=== PATIENT | female | born 1960 | race Caucasian/White ===

== ENCOUNTER 2018-05-21 17:59 | Inpatient (IN) ==
[2018-05-21] MEDS ORDERED: 0.9 % Sodium Chloride 1,000 ML IVC ONE (19:38)
--- NOTE | 2018-05-21 19:54 | Emergency Department Note ---
Disposition Clinical Impression: Lactic acidosis Osteomyelitis Qualifiers: Osteomyelitis type: unspecified type Osteomyelitis location: tibia Laterality: left Qualified Code(s): M86.9 - Osteomyelitis, unspecified Disposition: Admitted As Inpatient Condition: Fair Referrals: Shoshana Davis MD [Primary Care Provider] - Forms: ED Satisfaction Letter Time of Disposition: 21:20 Wound/Laceration HPI - General Chief Complaint: ED Wound/Laceration Stated Complaint: left stub infection Time Seen by Provider: 05/21/18 19:27 Source: patient, family Mode of arrival: ambulatory Limitations: no limitations Nursing Notes Reviewed: Yes Vital Signs Reviewed: Yes - History of Present Illness HPI Narrative: 57-year-old female history of left below knee amputation presents with concern for stump infection. She had the procedure performed 2 years ago and has had multiple revisions. She has been recently following with wound care given ulceration to her stump. She states her bones is poking through the skin. She is noticed some drainage from the wound site of the past several weeks. Last evaluated by wound care physician Dr. Veras this past month. She states they plan to perform another revision. The amputation was performed over 2 years ago in [place] at [facility] due to staff infection. She reports a low- grade temperature of 99. Denies nausea vomiting. Denies any new injury or trauma to the area. She has been using her prosthetic leg and states recently increasing the padding. She is concern for a larger infection. Recently placed on Clindamycin 3 weeks ago and finished 10 days ago. Patient has a history of diabetes and states are sugars have been well-controlled around 120s. - Related Data Allergies Allergy/AdvReac Type Severity Reaction Status Date / Time acetaminophen Allergy Nausea Verified 05/21/18 18:05 [From Darvocet-N 100] escitalopram [From Lexapro] Allergy Confusion Verified 05/21/18 18:05 latex Allergy See Verified 05/21/18 18:05 Comments levofloxacin [From Levaquin] Allergy Nausea Verified 05/21/18 18:05 [place] Allergy Confusion Verified 05/21/18 18:05 propoxyphene Allergy Nausea Verified 05/21/18 18:05 [From Darvocet-N 100] sumatriptan [From Imitrex] Allergy See Verified 05/21/18 18:05 Comments hydrocodone AdvReac See Verified 05/21/18 18:05 Comments All systems ED: reviewed and negative except as stated. Review of Systems: As Per HPI Constitutional: Denies: fever, chills ENT ED: Denies: congestion Cardiovascular: Denies: chest pain Respiratory: Denies: dyspnea Gastrointestinal: Denies: nausea, vomiting Musculoskeletal: Denies: back pain, neck pain Integumentary: Reports: lesions Neurological: Denies: headache, weakness, numbness Past Medical History - Past Medical History Attestation: Yes The following information was validated with the patient. Source: patient Medical history: Reports: diabetes, fibromyalgia, hyperlipidemia, hypertension, myocardial infarction Psychiatric history: Reports: anxiety, depression - Social History Smoking Status: Never smoker Alcohol use: Reports: none Drug use: Reports: none Physical Exam - General Limitations: no limitations General appearance: alert, in no apparent distress - Chest Chest inspection: Present: normal inspection, symmetric chest wall rise - Respiratory Respiratory exam: Present: normal lung sounds bilaterally - Cardiovascular Cardiovascular exam: Present: regular rate, normal rhythm, normal heart sounds - Abdominal Exam Abdominal exam: Present: soft, Non-Tender, normal bowel sounds. Absent: tenderness, distention, guarding, rebound, rigidity - Extremities Exam Extremities exam: Present: other (Left knee below amputation) - Psychiatric Psychiatric exam: Present: normal affect, normal mood - Skin Skin exam: Present: other (There is a slight 3 to 5 mm pustule ulceration to the left stump with tenderness, there is no surrounding erythema or warmth, no fluctuance or crepitus) Course Course Narrative: Patient presents with concern of infection to her left below knee amputation. Low-grade temps at home. Reports of drainage around the site. There is no evidence of erythema swelling or warm to the touch to suggest infection at this time however she reports multiple complications. At this time will obtain x-ray imaging as well as blood work including ESR and CRP. - Reevaluation(s) Reevaluation #1: X-ray with findings concerning for osteomyelitis. ESR and CRP are elevated. No leukocytosis. Lactic acid is elevated. Discussed with the pharmacists, will empirically treated with vancomycin and cefepime. Patient is agreeable to this plan. There is no obvious sight of fluctuance requiring drainage at this time. Impression is osteomyelitis of the left leg. Time: 21:19 - Consultations Consultation #1: Spoke with on-call hospitalist irlanda Middleton to admit for left leg osteomyelitis. No further orders at this time Time: 21:19 Vital Signs Temperature 97.7 F 05/21/18 18:02 Pulse Rate 103 05/21/18 18:02 Respiratory Rate 18 05/21/18 18:02 Blood Pressure 150/88 05/21/18 18:02 O2 Sat by Pulse Oximetry 99 05/21/18 18:02 Temperature 97.7 F 05/21/18 18:02 Pulse Rate 103 05/21/18 18:02 Respiratory Rate 18 05/21/18 18:02 Blood Pressure 150/88 05/21/18 18:02 O2 Sat by Pulse Oximetry 99 05/21/18 18:02 Oxygen Delivery Oxygen Delivery Room Air Wound/Laceration - MDM Narrative Medical decision making narrative: Patient was discussed with my attending physician who agrees with ED management and final disposition. They independently evaluated the patient. Please refer to their attestation to this encounter for additional information. This note was generated by [email or web address] voice recognition software and as a result grammatical or spelling errors may occur using this program. - Medical Records Medical records reviewed: Yes I reviewed the patient's medical records. - Lab Data Lab results reviewed: Yes I reviewed the patient's lab results. Result diagrams: 05/21/18 19:49 05/21/18 19:49 Lab Results 05/21/18 05/21/18 05/21/18 Range/Units 19:49 19:49 19:49 WBC 9.9 (4.3-11.1) K/mcL RBC 5.02 H (3.82-4.97) M/mcL Hgb 13.2 (11.5-15.4) g/dL Hct 39.8 (35.3-44.9) % MCV 79.3 L (83.0-100.0) fL MCH 26.3 L (28.0-33.3) pg MCHC 33.2 (31.6-35.5) g/dL RDW 15.0 H (11.5-14.5) % Plt Count 295 (140-400) K/mcL MPV 9.6 (9.4-12.4) fL Immature Gran % 0.3 (0-4) % Seg Neutrophils % 71.7 % Lymphocytes % 22.5 % Monocytes % 5.0 % Eosinophils % 0.2 % Basophils % 0.3 % Neutrophils # 7.1 (1.6-8.9) K/mcL Lymphocytes # 2.2 (0.6-4.6) K/mcL Monocytes # 0.5 (0.0-1.3) K/mcL Eosinophils # 0.0 (0.0-0.6) K/mcL Basophils # 0.0 (0.0-0.2) K/mcL ESR 62 H (0-15) mm/hr Sodium 138 (136-145) mEq/L Potassium 3.2 L (3.5-5.1) mEq/L Chloride 103 (98-107) mEq/L Carbon Dioxide 24 (23-29) mEq/L BUN 10 (6-20) mg/dL Creatinine 0.67 (0.60-1.20) mg/dL Est GFR ( Amer) > 60 (> 60) Est GFR (Non-Af Amer) > 60 (> 60) BUN/Creatinine Ratio 15 (6-26) Glucose 189 H (70-105) mg/dL Calculated Osmolality 290 (280-300) Lactic Acid (0.5-2.2) mmol/L Calcium 10.0 (8.6-10.3) mg/dL C-Reactive Protein 16 H (Less than 10) mg/L 05/21/18 Range/Units 19:49 WBC (4.3-11.1) K/mcL RBC (3.82-4.97) M/mcL Hgb (11.5-15.4) g/dL Hct (35.3-44.9) % MCV (83.0-100.0) fL MCH (28.0-33.3) pg MCHC (31.6-35.5) g/dL RDW (11.5-14.5) % Plt Count (140-400) K/mcL MPV (9.4-12.4) fL Immature Gran % (0-4) % Seg Neutrophils % % Lymphocytes % % Monocytes % % Eosinophils % % Basophils % % Neutrophils # (1.6-8.9) K/mcL Lymphocytes # (0.6-4.6) K/mcL Monocytes # (0.0-1.3) K/mcL Eosinophils # (0.0-0.6) K/mcL Basophils # (0.0-0.2) K/mcL ESR (0-15) mm/hr Sodium (136-145) mEq/L Potassium (3.5-5.1) mEq/L Chloride (98-107) mEq/L Carbon Dioxide (23-29) mEq/L BUN (6-20) mg/dL Creatinine (0.60-1.20) mg/dL Est GFR ( Amer) (> 60) Est GFR (Non-Af Amer) (> 60) BUN/Creatinine Ratio (6-26) Glucose (70-105) mg/dL Calculated Osmolality (280-300) Lactic Acid 2.9 H (0.5-2.2) mmol/L Calcium (8.6-10.3) mg/dL C-Reactive Protein (Less than 10) mg/L - Radiology Data Radiology results reviewed: Yes I reviewed the patient's radiology results. Tibia/Fibula X-Ray 05/21/18 19:37 IMPRESSION: Findings highly suspicious for osteomyelitis involving the stump. There is suggestion of a soft tissues track extending from the lateral skin. D/ / Shahzad Quan MD / Shahzad Quan MD Interpreting Provider: Shahzad Quan MD
[2018-05-21 20:17] LABS: Basophils % 0.3 %; Eosinophils % 0.2 %; Hematocrit 39.8 % (35.3-44.9); Hemoglobin 13.2 g/dL (11.5-15.4); Immature Granulocytes % 0.3 % (0-4); Lymphocytes # 2.2 K/mcL (0.6-4.6); Lymphocytes % 22.5 %; Mean Corpuscular HGB Conc 33.2 g/dL (31.6-35.5); Mean Corpuscular Hemoglobin 26.3 pg (28.0-33.3); Mean Corpuscular Volume 79.3 fL (83.0-100.0); Mean Platelet Volume 9.6 fL (9.4-12.4); Monocytes # 0.5 K/mcL (0.0-1.3); Neutrophils # 7.1 K/mcL (1.6-8.9); Platelet Count 295 K/mcL (140-400); Red Blood Count 5.02 M/mcL (3.82-4.97); Segmented Neutrophils % 71.7 %
[2018-05-21 20:39] LABS: BUN/Creatinine Ratio 15 (6-26); Blood Urea Nitrogen 10 mg/dL (6-20); C-Reactive Protein 16 mg/L (Less than 10); Carbon Dioxide 24 mEq/L (23-29); Chloride 103 mEq/L (98-107); Glucose 189 mg/dL (70-105); Osmolality,Calculated 290 (280-300); Potassium 3.2 mEq/L (3.5-5.1); Sodium 138 mEq/L (136-145); eGFR For Non-African Americans > 60 (> 60)
[2018-05-21] MEDS ORDERED: *HR* FentaNYL (PF) 100 MCG/2 ML VIAL IVP ONE (20:42)
--- NOTE | 2018-05-21 21:12 | Emergency Department Note ---
Disposition Clinical Impression: Osteomyelitis Disposition: Admitted As Inpatient Condition: Fair Referrals: Shoshana Davis MD [Primary Care Provider] - Forms: ED Satisfaction Letter General Adult HPI - General Chief complaint: ED Wound/Laceration Stated complaint: left stub infection Time Seen by Provider: 05/21/18 19:27 Source: patient, family Mode of arrival: ambulatory Limitations: no limitations - History of Present Illness Pain Scale: 10 - Related Data Allergies Allergy/AdvReac Type Severity Reaction Status Date / Time acetaminophen Allergy Nausea Verified 05/21/18 18:05 [From Darvocet-N 100] escitalopram [From Lexapro] Allergy Confusion Verified 05/21/18 18:05 latex Allergy See Verified 05/21/18 18:05 Comments levofloxacin [From Levaquin] Allergy Nausea Verified 05/21/18 18:05 [place] Allergy Confusion Verified 05/21/18 18:05 propoxyphene Allergy Nausea Verified 05/21/18 18:05 [From Darvocet-N 100] sumatriptan [From Imitrex] Allergy See Verified 05/21/18 18:05 Comments hydrocodone AdvReac See Verified 05/21/18 18:05 Comments Constitutional: Denies: fever, chills ENT ED: Denies: congestion Cardiovascular: Denies: chest pain Respiratory: Denies: dyspnea Gastrointestinal: Denies: nausea, vomiting Musculoskeletal: Denies: back pain, neck pain Integumentary: Reports: lesions Neurological: Denies: headache, weakness, numbness Past Medical History - Past Medical History Medical history: Reports: diabetes, fibromyalgia, hyperlipidemia, hypertension, myocardial infarction Psychiatric history: Reports: anxiety, depression - Social History Smoking Status: Never smoker Alcohol use: Reports: none Drug use: Reports: none Physical Exam - General Limitations: no limitations General appearance: alert, in no apparent distress Course Vital Signs Temperature 97.7 F 05/21/18 18:02 Pulse Rate 103 05/21/18 18:02 Respiratory Rate 18 05/21/18 18:02 Blood Pressure 150/88 05/21/18 18:02 O2 Sat by Pulse Oximetry 99 05/21/18 18:02 Temperature 97.7 F 05/21/18 18:02 Pulse Rate 103 05/21/18 18:02 Respiratory Rate 18 05/21/18 18:02 Blood Pressure 150/88 05/21/18 18:02 O2 Sat by Pulse Oximetry 99 05/21/18 18:02 Oxygen Delivery Oxygen Delivery Room Air Medical Decision Making - Lab Data Result diagrams: 05/21/18 19:49 05/21/18 19:49 Lab Results 05/21/18 05/21/18 05/21/18 Range/Units 19:49 19:49 19:49 WBC 9.9 (4.3-11.1) K/mcL RBC 5.02 H (3.82-4.97) M/mcL Hgb 13.2 (11.5-15.4) g/dL Hct 39.8 (35.3-44.9) % MCV 79.3 L (83.0-100.0) fL MCH 26.3 L (28.0-33.3) pg MCHC 33.2 (31.6-35.5) g/dL RDW 15.0 H (11.5-14.5) % Plt Count 295 (140-400) K/mcL MPV 9.6 (9.4-12.4) fL Immature Gran % 0.3 (0-4) % Seg Neutrophils % 71.7 % Lymphocytes % 22.5 % Monocytes % 5.0 % Eosinophils % 0.2 % Basophils % 0.3 % Neutrophils # 7.1 (1.6-8.9) K/mcL Lymphocytes # 2.2 (0.6-4.6) K/mcL Monocytes # 0.5 (0.0-1.3) K/mcL Eosinophils # 0.0 (0.0-0.6) K/mcL Basophils # 0.0 (0.0-0.2) K/mcL ESR 62 H (0-15) mm/hr Sodium 138 (136-145) mEq/L Potassium 3.2 L (3.5-5.1) mEq/L Chloride 103 (98-107) mEq/L Carbon Dioxide 24 (23-29) mEq/L BUN 10 (6-20) mg/dL Creatinine 0.67 (0.60-1.20) mg/dL Est GFR ( Amer) > 60 (> 60) Est GFR (Non-Af Amer) > 60 (> 60) BUN/Creatinine Ratio 15 (6-26) Glucose 189 H (70-105) mg/dL Calculated Osmolality 290 (280-300) Lactic Acid (0.5-2.2) mmol/L Calcium 10.0 (8.6-10.3) mg/dL C-Reactive Protein 16 H (Less than 10) mg/L 05/21/18 Range/Units 19:49 WBC (4.3-11.1) K/mcL RBC (3.82-4.97) M/mcL Hgb (11.5-15.4) g/dL Hct (35.3-44.9) % MCV (83.0-100.0) fL MCH (28.0-33.3) pg MCHC (31.6-35.5) g/dL RDW (11.5-14.5) % Plt Count (140-400) K/mcL MPV (9.4-12.4) fL Immature Gran % (0-4) % Seg Neutrophils % % Lymphocytes % % Monocytes % % Eosinophils % % Basophils % % Neutrophils # (1.6-8.9) K/mcL Lymphocytes # (0.6-4.6) K/mcL Monocytes # (0.0-1.3) K/mcL Eosinophils # (0.0-0.6) K/mcL Basophils # (0.0-0.2) K/mcL ESR (0-15) mm/hr Sodium (136-145) mEq/L Potassium (3.5-5.1) mEq/L Chloride (98-107) mEq/L Carbon Dioxide (23-29) mEq/L BUN (6-20) mg/dL Creatinine (0.60-1.20) mg/dL Est GFR ( Amer) (> 60) Est GFR (Non-Af Amer) (> 60) BUN/Creatinine Ratio (6-26) Glucose (70-105) mg/dL Calculated Osmolality (280-300) Lactic Acid 2.9 H (0.5-2.2) mmol/L Calcium (8.6-10.3) mg/dL C-Reactive Protein (Less than 10) mg/L Attestation Statement - Attestation Attestation: I have seen this patient with the resident physician, I have personally evaluated this patient. I had reviewed the chart and document dictation by the resident physician and aM in agreement with the information documented by the resident physician. Please see documentation by the resident physician for complete chart including past medical history, family medical history, review of systems, current history and physical and laboratory and imaging studies. I was present for all procedures, provided direct supervision for all pro cedures, was present for the entirety of all procedures and provided direct guidance during the procedures. Please see documentation by the resident physician for any procedures performed. Patient presented emergency department with chief complaint of progressively increasing discomfort and drainage from her prosthetic site, she years ago had a below the knee amputation worse prosthesis, and there was thought that she was going to need a revision, but she has had worsening pain and drainage, she has completed antibiotics but he continues to get worse. Physical exam she was alert and oriented 3 nontoxic in appearance, mildly tachycardic but afebrile in no acute distress, the [id number] amputation site, flap appears healthy, there is just a small area of pinpoint skin thi ckening with some very slight induration at the distal aspect, no purulence able to be expressed, no palpable fluctuance, no redness and warmth. Basic laboratory studies were within acceptable limits apart from an elevated sedimentation rate of 62 and an elevated CRP of 16 x-ray findings as interpreted by radiology were concerning for osteomyelitis of the remnant. Patient had blood culture sent, she was started on cefepime and vancomycin. She was admitted to the hospital for further evaluation and management.
[2018-05-21] MEDS ORDERED: Cefepime HCl 2,000 MG in Water for inj. (sterile) 20 ML 20 ML IVP ONE (21:15)
--- NOTE | 2018-05-21 21:19 | Internal Med History&Physical ---
<Ron Chi Aditya - Last Filed: 05/23/18 09:28> Date of Encounter: 05/23/18 Time of Encounter: 23:00 Internal Medicine - H&P: HPI Chief complaint: Wound infection History of present illness: Ms. Kirby is a 57 year old female with a past medical history of diabetes, fibromyalgia, hyperlipidemia, hypertension and [place] who presented to the ED with concerns for infection of his left below knee stump. Patient had left below knee amputation performed approximately 2 years ago with multiple revisions. Patient is currently being followed by wound care for ulceration of her stump. Patient reports that the bone is protruding through the skin and has noticed a drainage from the wound site over the past several weeks. Patient is currently followed by Dr. Veras who has been managing her wound. Patient reports that there was a plan for another revision but that has not moved forward to Patient denies any fever or chills. Currently uses a prosthetic leg which she has increased the padding of. On arrival patient was afebrile, hemodynamically stable. Initial laboratory workup showed a normal white blood cell count of 9.9 compared to 5.5 one month ago. Patient does have a lactic acid of 2.9. The ED patient received 1 L fluid bolus and was started on broad spectrum antibiotic coverage with Vanc/Zosyn. Blood cultures were obtained. X-ray imaging of the leg highly suspicious for osteomyelitis involving the stump. Past Med Surg Social Fam HX - Past Medical History Medical history: diabetes, fibromyalgia, hyperlipidemia, hypertension, myocardial infarction Psychiatric history: anxiety, depression - Past Surgical History Additional surgical history: Left BKA - Social History Smoking Status: Never smoker Alcohol use: none Drug use: none - Family History Father Hx Family Cardiac Disorders: Yes Mother Hx Family Cancer: Yes (ovarian, breast) Sister Hx Family Cardiac Disorders: Yes Internal Medicine - H&P: Meds Albuterol Inhaler 2 puff IH PRN PRN MDD Q4HR 05/22/18 [History] Albuterol Neb 0.083 aerosol IH PRN PRN MDD qid 05/22/18 [History] Allopurinol 100 mg PO BID 05/22/18 [History] Atorvastatin 80 mg PO DAILY 05/22/18 [History] Carvedilol 25 mg PO BID 05/22/18 [History] Flonase 2 spray NS DAILY 05/22/18 [History] Imitrex 100 mg PO PRN PRN 05/22/18 [History] Insulin Glargine,Hum.rec.anlog [Shaunaaglomayra Zhang U-100] 30 units SQ DAILY 05/22/18 [History] Lisinopril-HCTZ 20-12.5 See Protocol PO DAILY 05/22/18 [History] Meloxicam 7.5 mg PO BID 05/22/18 [History] Pantoprazole 40 mg PO DAILY 05/22/18 [History] Paxil Cr 37.5 mg PO DAILY 05/22/18 [History] Premarin 0.3 mg PO DAILY 05/22/18 [History] RX: Loratadine [Allergy Relief] 10 mg PO DAILY 05/22/18 [History] Ranitidine HCl 150 mg PO BID 05/22/18 [History] Singulair 10 mg PO DAILY 05/22/18 [History] Ziprasidone 160 mg PO HS 05/22/18 [History] rOPINIRole 5 mg PO DAILY 05/22/18 [History] Allergy/AdvReac Type Severity Reaction Status Date / Time acetaminophen Allergy Nausea Verified 05/21/18 18:05 [From Darvocet-N 100] escitalopram [From Lexapro] Allergy Confusion Verified 05/21/18 18:05 latex Allergy See Verified 05/21/18 18:05 Comments levofloxacin [From Levaquin] Allergy Nausea Verified 05/21/18 18:05 [place] Allergy Confusion Verified 05/21/18 18:05 propoxyphene Allergy Nausea Verified 05/21/18 18:05 [From Darvocet-N 100] sumatriptan [From Imitrex] Allergy See Verified 05/21/18 18:05 Comments hydrocodone AdvReac See Verified 05/21/18 18:05 Comments All Systems PM: A 10-system review of systems was performed and is negative for pertinent findings except as documented above in the HPI. - Constitutional Constitutional: no chills, no fever(s), no night sweats - EENT Eyes: no change in vision, no discharge, no pain, no photophobia Ears: no ear discharge, no ear pain, no tinnitus Nose, mouth and throat: no dysphagia, no nasal discharge, no neck pain, no sore throat - Cardiovascular Cardiovascular ROS IM: no chest pain, no diaphoresis, no dyspnea, no lightheadedness, no palpitations, no syncope - Respiratory Respiratory: no cough, no dyspnea, no wheezing, no excessive phlegm production - Gastrointestinal Gastrointestinal: no abdominal pain, no diarrhea, no hematemesis, no hematochezia, no melena, no nausea, no vomiting - Genitourinary Genitourinary: no change in urinary stream, no dysuria, no flank pain, no hematuria - Musculoskeletal Musculoskeletal ROS IM: no numbness, no tingling - Integumentary Integumentary IM: no rash, no unusual bruising - Neurological Neurological ROS: no confusion, no convulsions, no focal weakness, no numbness, no tingling, no tremor(s) - Hematologic/Lymphatic Hematologic/Lymphatic: no easy bruising - Constitutional Vitals: Temp Pulse Resp BP Pulse Ox 97.7 F 103 18 150/88 99 05/21/18 18:02 05/21/18 18:02 05/21/18 18:02 05/21/18 18:02 05/21/18 18:02 Exam: General: Alert and oriented Skin:Normal color, no rash, no lesions. HEENT:EOM, pupils equal, round and reactive. Cardiovascular:Normal S1 & S2, no rubs, murmurs or gallops. No JVD. Pulse regular. Lungs:Normal breath sounds, no wheezes or crackles. Abdomen:Soft, non-tender, no rigidity. Extremities:No deformity, no edema or tenderness, no joint swelling or clubbing. Neurological:Normal cognition and motor skills. Pulses:Carotid and radial pulses normal +2. Rest of the physical exam is non contributory Internal Med - H&P Results - Labs CBC & Chem 7: 05/23/18 02:23 05/23/18 02:23 Labs: Short CBC 05/21/18 Range/Units 19:49 WBC 9.9 (4.3-11.1) K/mcL Hgb 13.2 (11.5-15.4) g/dL Hct 39.8 (35.3-44.9) % Plt Count 295 (140-400) K/mcL Neutrophils # 7.1 (1.6-8.9) K/mcL BMP 05/21/18 19:49 Sodium 138 Potassium 3.2 L Chloride 103 Carbon Dioxide 24 BUN 10 Creatinine 0.67 Glucose 189 H Calcium 10.0 - Impressions ITS Impressions Tibia/Fibula X-Ray 05/21/18 19:37 IMPRESSION: Findings highly suspicious for osteomyelitis involving the stump. There is suggestion of a soft tissues track extending from the lateral skin. D/ / Shahzad Quan MD / Shahzad Quan MD Interpreting Provider: Shahzad Quan MD - Assessment and Plan (1) Osteomyelitis Current Visit: Yes Status: Acute Assessment and plan: Left below the knee amputation with multiple revisions with reported mild purul ent drainage from wound site. X-ray of the stump concerning for osteoarthritis in the setting of elevated ESR and CRP. Patient nonseptic in appearance. On examination flap appears healthy, no warmth or erythema, no purulence able to be expressed. Lab workup relatively unremarkable. Patient started on vancomycin and cefepime. Blood cultures obtained. Case was discussed in with Dr. Byers with orthopedics who will see the patient in the afternoon. Patient can have diet in the meantime. Qualifiers: Osteomyelitis type: unspecified type Laterality: left Qualified Code(s): M86.9 - Osteomyelitis, unspecified (2) Type 2 diabetes mellitus Current Visit: Yes Status: Acute Assessment and plan: Diabetic diet. Blood glucose checks. Sliding scale insulin. Qualifiers: Qualified Code(s): E11.9 - Type 2 diabetes mellitus without complications (3) Hypertension Current Visit: Yes Status: Acute Assessment and plan: Blood pressure stable. Continue with home medications Qualifiers: Hypertension type: essential hypertension Qualified Code(s): I10 - Essential (primary) hypertension (4) History of [place] (myocardial infarction) Current Visit: Yes Status: Acute (5) DVT prophylaxis Current Visit: Yes Status: Acute Assessment and plan: Pneumatic compression devices - Time Spent With Patient Total time spent is greater than 50% in coordination of care (as documented) at patient's floor/unit and/or counseling patient: <Ga Alexandra Aditya - Last Filed: 05/23/18 15:54> Date of Encounter: 05/21/18 Internal Medicine - H&P: HPI History of present illness: Ms. Kirby is a 57 year old female All Systems PM: A 10-system review of systems was performed and is negative for pertinent findings except as documented above in the HPI. - Constitutional Vitals: Temp Pulse Resp BP Pulse Ox 98.5 F 72 16 126/68 96 05/22/18 20:02 05/22/18 20:02 05/22/18 20:02 05/22/18 20:02 05/22/18 20:02 Internal Med - H&P Results - Labs CBC & Chem 7: 05/23/18 02:23 05/23/18 02:23 Labs: Short CBC 05/21/18 05/22/18 Range/Units 19:49 09:33 WBC 9.9 7.9 (4.3-11.1) K/mcL Hgb 13.2 11.8 (11.5-15.4) g/dL Hct 39.8 35.5 (35.3-44.9) % Plt Count 295 234 (140-400) K/mcL Neutrophils # 7.1 5.2 (1.6-8.9) K/mcL BMP 05/21/18 05/22/18 19:49 09:33 Sodium 138 141 Potassium 3.2 L 3.1 L Chloride 103 105 Carbon Dioxide 24 23 BUN 10 13 Creatinine 0.67 0.71 Glucose 189 H 153 H Calcium 10.0 8.7 - Impressions ITS Impressions Tibia/Fibula X-Ray 05/21/18 19:37 IMPRESSION: Findings highly suspicious for osteomyelitis involving the stump. There is suggestion of a soft tissues track extending from the lateral skin. D/ / Shahzad Quan MD / Shahzad Quan MD Interpreting Provider: Shahzad Quan MD - Assessment and Plan (1) Osteomyelitis Current Visit: Yes Status: Acute Qualifiers: Osteomyelitis type: unspecified type Laterality: left Qualified Code(s): M86.9 - Osteomyelitis, unspecified (2) Type 2 diabetes mellitus Current Visit: Yes Status: Acute Qualifiers: Qualified Code(s): E11.9 - Type 2 diabetes mellitus without complications (3) Hypertension Current Visit: Yes Status: Acute Qualifiers: Hypertension type: essential hypertension Qualified Code(s): I10 - Essential (primary) hypertension (4) History of [place] (myocardial infarction) Current Visit: Yes Status: Acute (5) DVT prophylaxis Current Visit: Yes Status: Acute - Time Spent With Patient Total time spent is greater than 50% in coordination of care (as documented) at patient's floor/unit and/or counseling patient: - Attending Attestation I have signed this note in error.
[2018-05-21] MEDS ORDERED: Naloxone 0.4 MG/ML INJ IVP PRN (23:09)
[2018-05-21] MEDS ORDERED: Dextrose Gel 15 GM/37.5 ML TUBE PO PRN ×2 (23:47)
[2018-05-21] MEDS ORDERED: *HR* Dextrose 50 % in Water (Syg) 50 ML SYRINGE IVP PRN (23:47)
[2018-05-21] MEDS ORDERED: D5% in Water 1,000 ML IVC PRN (23:47)
[2018-05-22] MEDS: Insulin LISPRO 300 UNITS/3 ML VIAL SQ SCH ×6 (00:42→23:16)
[2018-05-22] MEDS ORDERED: Acetaminophen 325 MG TABLET PO PRN (04:12)
[2018-05-22] MEDS: *HR* OxyCODONE Immed Rel 5 MG TABLET PO PRN ×3 (04:32→17:14)
[2018-05-22] MEDS: Cefepime HCl 2,000 MG in 0.9 % Sodium Chloride Mini Bag 100 ML IVPB SCH ×3 (08:12→23:15)
--- NOTE | 2018-05-22 08:15 | Internal Med Progress Note ---
<MohiniAbida M - Last Filed: 05/22/18 15:40> Hospitalist Progress Note - Encounter Date of Encounter: 05/22/18 Time of Encounter: 08:30 - Subjective Interval History: Mrs. Kirby is a 57Yo F with a h/o DM, fibromyalgia, and left lower leg amputation who presented for concerns of infection of the left lower leg at the stump. Pt was found to have osteomyelitis involving the stump on Xray. Today pt is tearful and states she feels general malaise. She denies H/A, NVD, constipation, chest pain, palpiattaions, weakness, numbness or tingling. She does admit to a burning sensation from the left knee down as well as tenderness at the distal end of the stump of the left leg. - Exam Vitals: Temp Pulse Resp BP Pulse Ox 99.2 F 74 14 137/72 98 05/22/18 08:08 05/22/18 08:08 05/22/18 08:08 05/22/18 08:08 05/22/18 08:08 Exam: General: Tearful on presentation, AAOX3, NAD Cardiovascular: RRR, normal s1 and s2, no murmurs Respiratory: CTAB, no wheezing, no rhonchi Abdomen: Normal bowel sounds X4, non-tender to palpation, soft, non-distended Ext: normal sensation to light touch of LE bilaterally, normal strength of LE bilaterally, tenderness to palpation of the distal end of the left leg stump. Skin: warm, dry and intact - Assessment and Plan (1) Osteomyelitis Current Visit: Yes Status: Acute Assessment and Plan: Pt had a below the knee amputation of the left leg about 2 years ago with multiple revisions. Pt intially presented to the ED with the complaint that her distal left lower leg stump was infected. She states there was bone protruding through the skin and drainage coming from the wound. She states there were plans for another revision. Dr. Veras currently manages her wound care. 05/21 WBC was 9.9 05/21 Lactic acid initially was 2.9 but decreased to 2.1, likely 2/2 1 L fluid bolus that was administered in the ED 05/21 Xray of tibia and fibula of left leg showed concerns for osteomyelitis involving the stump and a soft tissue track extending from the lateral skin. 05/21 Blood Cx pending Today pt states that she is experiencing an intense burning sensation of the left lower leg just below the knee. She states the distal end of the left lower leg stump is tender. She admits to feeling feverish and diaphoretic as well as feeling chills. She denied any numbness/tingling or weakness. Sensation to light touch is intact to LE bilaterally. Pt is currently afebrile at 99.2, pulse rate 74-104, RR 14-19. Pt meets only 1/4 SIRS criteria. Plan: -Continue IV Vancomycin and cefepime -Blood Cx pending -Pain control with tylenol, tramadol, and oxycodone, was given one percocet 10 PO -Consult Ortho Pending -Continue to monitor (2) Type 2 diabetes mellitus Current Visit: Yes Status: Acute Assessment and Plan: Pt has a h/o DM, her blood glucose yesterday was 189. Plan: -Continue corrective low dose insulin -Accuchecks ACHS -Diabetic Diet (3) Hypertension Current Visit: Yes Status: Acute Assessment and Plan: Pt has a h/o HTN, BP today is 137-160/72-96. Blood pressure is stable and pt denies any chest pain, palpitations, or H/A. Plan: -continue with home medications -continue to monitor (4) History of [place] (myocardial infarction) Current Visit: Yes Status: Acute Assessment and Plan: Pt has a h/o of previous [place], today she denies chest pain, SOB, numbness/tingling, nausea or palpitations (5) DVT prophylaxis Current Visit: Yes Status: Acute Assessment and Plan: Plan: -intermittent pneumatic compression devices - Time Spent with Patient Total time spent is greater than 50% in coordination of care (as documented) at patient's floor/unit and/or counseling patient: Internal Medicine: Result - Labs CBC & Chem 7: 05/22/18 09:33 05/22/18 09:33 Labs: Short CBC 05/21/18 Range/Units 19:49 WBC 9.9 (4.3-11.1) K/mcL Hgb 13.2 (11.5-15.4) g/dL Hct 39.8 (35.3-44.9) % Plt Count 295 (140-400) K/mcL Neutrophils # 7.1 (1.6-8.9) K/mcL BMP 05/21/18 19:49 Sodium 138 Potassium 3.2 L Chloride 103 Carbon Dioxide 24 BUN 10 Creatinine 0.67 Glucose 189 H Calcium 10.0 - Impressions Impressions Tibia/Fibula X-Ray 05/21/18 19:37 IMPRESSION: Findings highly suspicious for osteomyelitis involving the stump. There is suggestion of a soft tissues track extending from the lateral skin. D/ / Shahzad Quan MD / Shahzad Quan MD Interpreting Provider: Shahzad Quan MD Consult Discharge Plan - Plan Referrals: Shoshana Davis MD [Primary Care Provider] - <Ga Alexandra - Last Filed: 05/23/18 15:57> Hospitalist Progress Note - Encounter Date of Encounter: 05/22/18 - Exam Vitals: Temp Pulse Resp BP Pulse Ox 98.6 F 70 17 105/64 97 05/23/18 10:25 05/23/18 10:25 05/23/18 10:25 05/23/18 10:25 05/23/18 10:25 - Assessment and Plan (1) Osteomyelitis Current Visit: Yes Status: Acute (2) Type 2 diabetes mellitus Current Visit: Yes Status: Acute (3) Hypertension Current Visit: Yes Status: Acute (4) History of [place] (myocardial infarction) Current Visit: Yes Status: Acute (5) DVT prophylaxis Current Visit: Yes Status: Acute - Time Spent with Patient Total time spent is greater than 50% in coordination of care (as documented) at patient's floor/unit and/or counseling patient: Internal Medicine: Result - Labs CBC & Chem 7: 05/23/18 02:23 05/23/18 02:23 Labs: Short CBC 05/23/18 Range/Units 02:23 WBC 7.0 (4.3-11.1) K/mcL Hgb 11.5 (11.5-15.4) g/dL Hct 36.4 (35.3-44.9) % Plt Count 207 (140-400) K/mcL Neutrophils # 4.0 (1.6-8.9) K/mcL BMP 05/23/18 02:23 Sodium 137 Potassium 3.0 L Chloride 104 Carbon Dioxide 25 BUN 17 Creatinine 0.91 Glucose 165 H Calcium 8.3 L - Impressions Impressions Lower Extremity MRI 05/23/18 12:29 IMPRESSION: 1. Large rim enhancing fluid collection at the stump measuring 2.1 x 3.8 x 2.0 cm most compatible with large abscess given history. Surrounding subcutaneous edema and postcontrast enhancement consistent with cellulitis. 2. Osteomyelitis of the distal stump with patchy marrow edema and postcontrast enhancement extending to the level of the proximal metaphysis. Findings highly suspicious for osteomyelitis proximally. 3. Edema and subchondral signal change of the medial tibial plateau and to a lesser extent the anterior aspect of the medial femoral condyle. Findings may reflect reactive/mechanical marrow edema. D/ / Sravan Harris MD / Sravan Harris MD Interpreting Provider: Sravan Harris MD - Attending Attestation I examined this patient and my medical decision-making was reviewed with the Resident Physician on 05/22/18. I agree with the documented findings, disposition and treatment plan as described except to the extent set forth below. Ms Kirby was admitted earlier today with infected stump. She remains moderate to high risk due to potential for worsening clinical status. Ms Kirby is having some pain. No fever or chills. No CP or SOB. Exam alert Comfortable Mucus membranes dry Heart reg No wheeze Agree with assessment and plan as per H&P and above <Ga Alexandra - Last Filed: 05/23/18 15:57> (1) Osteomyelitis Qualifiers: Osteomyelitis type: unspecified type Laterality: left Qualified Code(s): M86.9 - Osteomyelitis, unspecified (2) Type 2 diabetes mellitus Qualifiers: Qualified Code(s): E11.9 - Type 2 diabetes mellitus without complications (3) Hypertension Qualifiers: Hypertension type: essential hypertension Qualified Code(s): I10 - Essential (primary) hypertension
[2018-05-22] MEDS: traMADol 50 MG TABLET PO PRN ×2 (08:17→20:08)
[2018-05-22 09:48] LABS: Basophils % 0.1 %; Eosinophils % 0.4 %; Hematocrit 35.5 % (35.3-44.9); Hemoglobin 11.8 g/dL (11.5-15.4); Immature Granulocytes % 0.4 % (0-4); Lymphocytes # 2.2 K/mcL (0.6-4.6); Lymphocytes % 28.3 %; Mean Corpuscular HGB Conc 33.2 g/dL (31.6-35.5); Mean Corpuscular Hemoglobin 26.5 pg (28.0-33.3); Mean Corpuscular Volume 79.8 fL (83.0-100.0); Mean Platelet Volume 9.3 fL (9.4-12.4); Monocytes # 0.4 K/mcL (0.0-1.3); Neutrophils # 5.2 K/mcL (1.6-8.9); Platelet Count 234 K/mcL (140-400); Red Blood Count 4.45 M/mcL (3.82-4.97); Red Cell Distribution Width 15.1 % (11.5-14.5); Segmented Neutrophils % 65.8 %
[2018-05-22 10:10] LABS: BUN/Creatinine Ratio 18 (6-26); Blood Urea Nitrogen 13 mg/dL (6-20); Calcium 8.7 mg/dL (8.6-10.3); Carbon Dioxide 23 mEq/L (23-29); Chloride 105 mEq/L (98-107); Glucose 153 mg/dL (70-105); Osmolality,Calculated 295 (280-300); Potassium 3.1 mEq/L (3.5-5.1); Sodium 141 mEq/L (136-145); eGFR For Non-African Americans > 60 (> 60)
[2018-05-22] MEDS ORDERED: OXYCODONE Oral CONC 10 MG/0.5 ML ORAL.SYG SL PRN (11:42)
[2018-05-22] MEDS ORDERED: *HR* OxyCODONE/APAP 10/325 TABLET PO ONE (13:29)
[2018-05-22] MEDS ORDERED: ROPINIROLE 5 MG PO SCH (13:45)
[2018-05-22] MEDS ORDERED: Ziprasidone 80 MG CAPSULE PO SCH (17:00)
[2018-05-22] MEDS: rOPINIRole 3 MG, rOPINIRole 2 MG PO SCH (20:08)
[2018-05-22] MEDS: Ziprasidone 80 MG CAPSULE PO SCH (20:08)
[2018-05-22] MEDS: Famotidine 20 MG TABLET PO SCH (20:08)
--- NOTE | 2018-05-23 00:02 | Orthopedic Consult Note ---
Date of Encounter: 05/22/18 Time of Encounter: 23:53 History of Present Illness Chief complaint: Left BKA stump pain HPI: Ms. 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 Patient is unable to give a clear history as to where the MRSA infection was and what treatment was administered. Patient states that she initially did fairly well but has had several revision type surgeries due to "infection. " Patient states that the most recent was about 8 months ago. This was performed at [facility] where she reported that they "bone was scraped and the infection was removed". P atient states that she did fairly well after that until maybe 3 months ago. She had been seen and followed up in the wound clinic. Patient states that there was potential plans for a mother revision surgery. Patient states that she did have some drainage a couple of days ago. She is complaining of pain in the terminal end of the stump. A reviewed the patient's completed history and physical examination as well as the completed medical record. Pertinent orthopedic examination is a pleasant 57-year-old woman in no acute distress while lying in a hospital bed. The left below knee amputation site reveals no significant erythema or edema. There does appear to be some fluid over the tip of the tibial stump. The fibular stump is unremarkable. Skin is well-healed. No evidence of current drainage. White blood cell count is normal. ESR is 62 a CRP is 16. X-rays of the left BKA stump reveals a apparent bone plug in the distal tibia. There are lucencies surrounding the bone plug. Fibular stump appears unremarkable. There are some calcifications between the tibia and fibula distally as well as some diffuse calcifications along the medial side of the distal tibia. There is suggestion of a fluid-filled area distal to the tibial stump. Impression: Status post left BKA, suspicion for infection or possible osteomyelitis of the tibial stump. Recommendation: At this time surgical intervention is not urgently required. Would recommend further evaluation with imaging studies to determine if osteomyelitis is present. An MRI could delineate fluid and could possibly identify if there is any bony destruction. A white blood cell scan could indicate if there is infection present within the bone. Would continue with intravenous antibiotics and follow inflammatory markers. Further recommendations will be made pending outcome of the clinical response and any studies. Thank you for allowing me to seen care for Mrs. Kirby. Sincerely, Thompson Fernandez,DO Past Med Surg Social Fam HX - Past Medical History Medical history: diabetes, fibromyalgia, hyperlipidemia, hypertension, myocardial infarction Psychiatric history: anxiety, depression - Past Surgical History Additional surgical history: Left BKA - Social History Smoking Status: Never smoker Smokeless Tobacco Status: No Alcohol use: none Drug use: none - Family History Father Hx Family Cardiac Disorders: Yes Mother Hx Family Cancer: Yes (ovarian, breast) Sister Hx Family Cardiac Disorders: Yes Medications and Allergies Albuterol Inhaler 2 puff IH PRN PRN MDD Q4HR 05/22/18 [History] Albuterol Neb 0.083 aerosol IH PRN PRN MDD qid 05/22/18 [History] Allopurinol 100 mg PO BID 05/22/18 [History] Atorvastatin 80 mg PO DAILY 05/22/18 [History] Carvedilol 25 mg PO BID 05/22/18 [History] Flonase 2 spray NS DAILY 05/22/18 [History] Imitrex 100 mg PO PRN PRN 05/22/18 [History] Insulin Glargine,Hum.rec.anlog [Basaglar Kwikpen U-100] 30 units SQ DAILY 05/22/18 [History] Lisinopril-HCTZ 20-12.5 See Protocol PO DAILY 05/22/18 [History] Loratadine [Allergy Relief] 10 mg PO DAILY 05/22/18 [History] Meloxicam 7.5 mg PO BID 05/22/18 [History] Pantoprazole 40 mg PO DAILY 05/22/18 [History] Paxil Cr 37.5 mg PO DAILY 05/22/18 [History] Premarin 0.3 mg PO DAILY 05/22/18 [History] Ranitidine HCl 150 mg PO BID 05/22/18 [History] Singulair 10 mg PO DAILY 05/22/18 [History] Ziprasidone 160 mg PO HS 05/22/18 [History] rOPINIRole 5 mg PO DAILY 05/22/18 [History] Allergy/AdvReac Type Severity Reaction Status Date / Time acetaminophen Allergy Nausea Verified 05/21/18 18:05 [From Darvocet-N 100] escitalopram [From Lexapro] Allergy Confusion Verified 05/21/18 18:05 latex Allergy See Verified 05/21/18 18:05 Comments levofloxacin [From Levaquin] Allergy Nausea Verified 05/21/18 18:05 [place] Allergy Confusion Verified 05/21/18 18:05 propoxyphene Allergy Nausea Verified 05/21/18 18:05 [From Darvocet-N 100] sumatriptan [From Imitrex] Allergy See Verified 05/21/18 18:05 Comments hydrocodone AdvReac See Verified 05/21/18 18:05 Comments All Systems Reviewed: The remainder of the systems were reviewed and are negative Physical Exam - Constitutional Vitals: Temp Pulse Resp BP Pulse Ox 98.5 F 72 16 126/68 96 05/22/18 20:02 05/22/18 20:02 05/22/18 20:02 05/22/18 20:02 05/22/18 20:02 Results - Labs Result Diagrams: 05/22/18 09:33 05/22/18 09:33 Labs: Abnormal lab results MCV 79.8 fL (83.0-100.0) L 05/22/18 09:33 MCH 26.5 pg (28.0-33.3) L 05/22/18 09:33 RDW 15.1 % (11.5-14.5) H 05/22/18 09:33 MPV 9.3 fL (9.4-12.4) L 05/22/18 09:33 ESR 62 mm/hr (0-15) H 05/21/18 19:49 Potassium 3.1 mEq/L (3.5-5.1) L 05/22/18 09:33 Glucose 153 mg/dL (70-105) H 05/22/18 09:33 POC Glucose 188 mg/dL (70-99) H 05/22/18 16:40 C-Reactive Protein 16 mg/L (Less than 10) H 05/21/18 19:49 H & H 05/22/18 Range/Units 09:33 Hgb 11.8 (11.5-15.4) g/dL Hct 35.5 (35.3-44.9) % All other labs normal. - Diagnostic results Knee x-ray: image reviewed Consult Discharge Plan - Plan Referrals: Shoshana Davis MD [Primary Care Provider] -
[2018-05-23 03:10] LABS: Basophils % 0.4 %; Eosinophils # 0.1 K/mcL (0.0-0.6); Hematocrit 36.4 % (35.3-44.9); Hemoglobin 11.5 g/dL (11.5-15.4); Immature Granulocytes % 0.4 % (0-4); Lymphocytes # 2.3 K/mcL (0.6-4.6); Mean Corpuscular HGB Conc 31.6 g/dL (31.6-35.5); Mean Corpuscular Volume 82.2 fL (83.0-100.0); Mean Platelet Volume 9.5 fL (9.4-12.4); Monocytes # 0.5 K/mcL (0.0-1.3); Monocytes % 7.2 %; Platelet Count 207 K/mcL (140-400); Red Blood Count 4.43 M/mcL (3.82-4.97); Red Cell Distribution Width 15.3 % (11.5-14.5)
[2018-05-23 03:24] LABS: BUN/Creatinine Ratio 19 (6-26); Blood Urea Nitrogen 17 mg/dL (6-20); Calcium 8.3 mg/dL (8.6-10.3); Carbon Dioxide 25 mEq/L (23-29); Chloride 104 mEq/L (98-107); Glucose 165 mg/dL (70-105); Osmolality,Calculated 289 (280-300); Sodium 137 mEq/L (136-145); eGFR For Non-African Americans > 60 (> 60)
[2018-05-23] MEDS ORDERED: Potassium Chloride 40 MEQ, Lidocaine 1% 2 ML in D5% in Water 500 ML IVPB ONE (05:08)
[2018-05-23] MEDS: Lisinopril-HCTZ 20-12.5mg TABLET PO SCH (08:03)
[2018-05-23] MEDS: Famotidine 20 MG TABLET PO SCH ×2 (08:03→20:38)
[2018-05-23] MEDS: Loratadine 10 MG TABLET PO SCH (08:03)
[2018-05-23] MEDS: Fluticasone Propionate Nasal 50 MCG/SPRAY BOTTLE NS SCH (08:04)
[2018-05-23] MEDS: Insulin LISPRO 300 UNITS/3 ML VIAL SQ SCH ×4 (08:05→20:54)
[2018-05-23] MEDS: *HR* OxyCODONE Immed Rel 5 MG TABLET PO PRN ×3 (08:09→22:32)
[2018-05-23] MEDS: Cefepime HCl 2,000 MG in 0.9 % Sodium Chloride Mini Bag 100 ML IVPB SCH ×3 (09:05→23:45)
--- NOTE | 2018-05-23 14:28 | Internal Med Progress Note ---
<Leeann Dias - Last Filed: 05/23/18 16:33> Hospitalist Progress Note - Encounter Date of Encounter: 05/23/18 Time of Encounter: 14:15 - Subjective Interval History: Patient seen and examined at bedside. She is alert and oriented times 3. She is sitting on the side of the bed getting ready to go for brain MRI. She reports she does have pain and the left leg where she is had the amputation. She denies fever, chills, body aches, shortness of breath, dysuria. She has no other complaints. The nurse had reported that the patient's IV had infiltrated while she was receiving potassium. Pharmacy was called and recommended hy aluronidase. - Exam Vitals: Temp Pulse Resp BP Pulse Ox 98.6 F 70 17 105/64 97 05/23/18 10:25 05/23/18 10:25 05/23/18 10:25 05/23/18 10:25 05/23/18 10:25 Exam: Gen.: Vitals noted. No acute distress. AAOx3 HEENT: oropharynx clear, Normocephalic, atraumatic Cardiac: RRR, no murmur, +S1/S2 Pulmonary: CTA bilaterally, no wheezes, rales or rhonchi, equal chest expansion Abdomen: soft, nontender, Bowel sounds noted, no guarding MSK: no joint swelling noted Extremities: no BLE edema, nontender calf, no cyanosis or clubbing. Below knee amputation of left leg Neuro: A&Ox3, moves all extremities, no focal deficits Psych: Appropriate mood and behavior - Assessment and Plan (1) Osteomyelitis Current Visit: Yes Status: Acute Assessment and Plan: Osteomyelitis of left leg -Patient complained of infection of distal left leg complain bone was protruding to the skin and drainage coming from the wound. -Patient with below knee amputation of left leg about 2 years ago with multiple revisions. -Afebrile, WBC WNL -ESR 62, CRP 16 -blood culture pending -tibia/fibula x-ray findings highly suspicious for osteomyelitis involving the stump -lower extremity MRI showing large abscess with large rim enhancing fluid collection at the stump measuring 2.1 x 3.8 x 2.0 cm. Surrounding cellulitis. Osteomyelitis of the distal stump with patchy marrow edema and post contrast enhancement extending to the level of the proximal metaphysis. Findings highly suspicious for osteomyelitis proximally. Edema and subchondral signal change of the medial tibial plateau into a lesser extent the anterior aspect of the medial femoral condyle. Findings may reflect reactive/mechanical marrow edema. Plan: -continue IV cefepime day 2 -continue IV vancomycin Day 3 -orthopedic surgery consulted and following. Will await further recommendations and plans of orthopedic surgery due to the new findings of lower extremity MRI showing osteomyelitis that is not only present by extending proximally with a large abscess at the stump. -Continue to monitor CBC and inflammatory markers (2) Type 2 diabetes mellitus Current Visit: Yes Status: Acute Assessment and Plan: History of insulin-dependent diabetes -glucose stable -continue low-dose sliding scale insulin -continue Accu check -diabetic diet (3) Hypertension Current Visit: Yes Status: Acute Assessment and Plan: History of hypertension taking lisinopril and coreg -blood pressure stable -continue home medications (4) History of CA (myocardial infarction) Current Visit: Yes Status: Acute Assessment and Plan: History of previous CA taking lisinopril, chloride, atorvastatin -patient denies chest pain -continue home medications (5) DVT prophylaxis Current Visit: Yes Status: Acute Assessment and Plan: Pneumatic compression devices - Time Spent with Patient Total time spent is greater than 50% in coordination of care (as documented) at patient's floor/unit and/or counseling patient: Internal Medicine: Result - Labs CBC & Chem 7: 05/23/18 02:23 05/23/18 02:23 Labs: Short CBC 05/23/18 Range/Units 02:23 WBC 7.0 (4.3-11.1) K/mcL Hgb 11.5 (11.5-15.4) g/dL Hct 36.4 (35.3-44.9) % Plt Count 207 (140-400) K/mcL Neutrophils # 4.0 (1.6-8.9) K/mcL BMP 05/23/18 02:23 Sodium 137 Potassium 3.0 L Chloride 104 Carbon Dioxide 25 BUN 17 Creatinine 0.91 Glucose 165 H Calcium 8.3 L Consult Discharge Plan - Plan Referrals: Shoshana Davis MD [Primary Care Provider] - <Ga Alexandra - Last Filed: 05/23/18 17:15> Hospitalist Progress Note - Encounter Date of Encounter: 05/23/18 - Exam Vitals: Temp Pulse Resp BP Pulse Ox 98.3 F 77 16 128/76 97 05/23/18 16:21 05/23/18 16:21 05/23/18 16:21 05/23/18 16:21 05/23/18 16:21 - Assessment and Plan (1) Osteomyelitis Current Visit: Yes Status: Acute (2) Type 2 diabetes mellitus Current Visit: Yes Status: Chronic (3) Hypertension Current Visit: Yes Status: Chronic (4) History of CA (myocardial infarction) Current Visit: Yes Status: Acute (5) DVT prophylaxis Current Visit: Yes Status: Acute (6) CAD (coronary artery disease) Current Visit: Yes Status: Chronic - Time Spent with Patient Total time spent is greater than 50% in coordination of care (as documented) at patient's floor/unit and/or counseling patient: Internal Medicine: Result - Labs CBC & Chem 7: 05/23/18 02:23 05/23/18 02:23 Labs: Short CBC 05/23/18 Range/Units 02:23 WBC 7.0 (4.3-11.1) K/mcL Hgb 11.5 (11.5-15.4) g/dL Hct 36.4 (35.3-44.9) % Plt Count 207 (140-400) K/mcL Neutrophils # 4.0 (1.6-8.9) K/mcL BMP 05/23/18 02:23 Sodium 137 Potassium 3.0 L Chloride 104 Carbon Dioxide 25 BUN 17 Creatinine 0.91 Glucose 165 H Calcium 8.3 L - Impressions Impressions Lower Extremity MRI 05/23/18 12:29 IMPRESSION: 1. Large rim enhancing fluid collection at the stump measuring 2.1 x 3.8 x 2.0 cm most compatible with large abscess given history. Surrounding subcutaneous edema and postcontrast enhancement consistent with cellulitis. 2. Osteomyelitis of the distal stump with patchy marrow edema and postcontrast enhancement extending to the level of the proximal metaphysis. Findings highly suspicious for osteomyelitis proximally. 3. Edema and subchondral signal change of the medial tibial plateau and to a lesser extent the anterior aspect of the medial femoral condyle. Findings may reflect reactive/mechanical marrow edema. D/ / Sravan Harris MD / Sravan Harris MD Interpreting Provider: Sravan Harris MD - Attending Attestation I examined this patient and my medical decision-making was reviewed with the Resident Physician on 05/23/18. I agree with the documented findings, disposition and treatment plan as described except to the extent set forth below. Ms Kirby is currently admitted for infected BKA stump. She remains moderate to high risk due to potential for worsening clinical status. Ms Kirby is feeling OK. She has had issues with IV potassium. No fever or chills. To have MRI today. Exam alert Comfortable at this time Mucus membranes dry Heart reg and not tachy No wheeze abd soft I/P 1. Infected BKA stump/cellulitis - MRI today to eval for deep infection 2. Presumed osteomyelitis 3. DM - appears to be fairly controlled at this time. 4. HTN Further diagnoses and plan as above. <Leeann Dias - Last Filed: 05/23/18 16:33> (1) Osteomyelitis Qualifiers: Osteomyelitis type: unspecified type Laterality: left (2) Type 2 diabetes mellitus Qualifiers: Qualified Code(s): E11.9 - Type 2 diabetes mellitus without complications; Z79.4 - [facility] (current) use of insulin (3) Hypertension Qualifiers: Hypertension type: essential hypertension Qualified Code(s): I10 - Essential (primary) hypertension <Ga Alexandra - Last Filed: 05/23/18 17:15> (1) Osteomyelitis Qualifiers: Osteomyelitis type: acute hematogenous Osteomyelitis location: tibia Laterality: left Qualified Code(s): M86.062 - Acute hematogenous osteomyelitis, left tibia and fibula (2) Type 2 diabetes mellitus Qualifiers: Diabetes mellitus senior care insulin use: with senior care use Diabetes mellitus complication status: with skin complications Diabetes mellitus complication detail: with other skin complication Qualified Code(s): E11.628 - Type 2 diabetes mellitus with other skin complications; Z79.4 - [facility] (current) use of insulin (3) Hypertension Qualifiers: Hypertension type: essential hypertension Qualified Code(s): I10 - Essential (primary) hypertension (6) CAD (coronary artery disease) Qualifiers: Coronary Disease-Associated Artery/Lesion type: [place] artery [place] vs. transplanted heart: [place] heart Associated angina: without angina Qualified Code(s): I25.10 - Atherosclerotic heart disease of [place] coronary artery without angina pectoris
[2018-05-23] MEDS: rOPINIRole 3 MG, rOPINIRole 2 MG PO SCH (20:37)
--- NOTE | 2018-05-23 21:10 | Orthopedics Progress Note ---
Date of Encounter: 05/23/18 Time of Encounter: 21:02 Subjective Principal diagnosis: Left BKA infection Interval history: 05/23/2018. Patient states the left BKA is feeling better. Less swelling and less pain. Denies chills fevers etc. Vital signs are stable. Patient is afebrile. Stump appears stable with a cystic area distally over the stump. This is over the tibial. No evidence of drainage. No significant swelling about the knee. MRI of the BKA was reviewed. There is fluid consistent with the clinical appearance. There are marked changes within the tibia at the level of the amputation site. Findings are consistent with osteomyelitis of the tibia proper. There are some subchondral marrow edema changes seen in the medial tibial plateau. Unclear if these are related to arthritis or an infectious process. White blood cell count remains normal. Impression: Suspected osteomyelitis left BKA stump. Recommendation: Had an extremely long discussion with the patient regarding the history of the amputation as well as the treatment delivered thus far. 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 It appears that she did well until 6 or 8 months ago when she had a revision of the BKA due to bony overgrowth. It does not appear that antibiotics were utilized at that time. The presence of the bone cement in the distal tibia is puzzling in that light. The patient states that she is having problems with fluid and swelling for probably the past 2 months. She states that beginning of the complaints she was on antibiotics but has been off antibiotics for probably a month. She has been on IV antibiotics for 2 days now with improvement but persistent swelling in the stump tip. I discussed with the patient and I suspect she has several options and none of these are urgent as she is not septic Andrei dealing with a draining wound. Could continue to treat her slowly with IV antibiotics I do not feel that this is going to try to eradicate the problem and we do not have a organism. The other option would be to "clean up the infection with a potential revision of the BKA, I discussed with the patient that this is very unpredictable and could not guarantee her success. The potentially more definitive treatment would be proceeding to AKA with the difficulty in ambulating with an AKA prosthesis. After much discussion we elected to proceed with an aspiration of the distal tibia. Informed consent was obtained and utilizing a Betadine prep the cystic area was entered and aspirated of approximately 15 mL of a cloudy pink thick fluid. Cultures were obtained. Discussed with the patient that information gathered from this culture could help in decision making. Also discussed that this may not provide an answer as she has been on antibiotics for a period of time and the culture results may be skewed. Other option would be to have additional input, probably from infectious disease to get an opinion as to further treatment. Objective Vital signs: Vital Signs Temp Pulse Resp BP Pulse Ox 05/23/18 19:20 99.9 F H 75 15 122/62 95 05/23/18 16:21 98.3 F 77 16 128/76 97 05/23/18 10:25 98.6 F 70 17 105/64 97 05/23/18 07:20 98.3 F 88 18 124/82 98 05/23/18 04:00 97.5 F L 78 17 95/59 96 05/22/18 23:52 97.7 F 66 17 90/54 94 Intake and Output 05/23/18 05/23/18 05/23/18 07:59 15:59 23:59 Intake Total 590 / 590 360 / 360 Output Total 0 / 0 Balance 590 / 590 360 / 360 Intake: IV Fluids 350 / 350 Maxipime 2,000 MG In 0.9 % 100 / 100 Sodium Chloride (Mini-Bag +) 100 ML @ 200 mls/hr IVPB Q8HR [facility] Rx#:[id number] Vancocin 1,250 MG In 0.9 % 250 / 250 Sodium Chloride 250 ML @ 166.67 mls/hr IVPB Q12H [facility] Rx#: [id number] Oral 240 / 240 360 / 360 Output: Urine 0 / 0 Other: Meal Lunch Dinner Percent of Meal Consumed 100% Stool Size Small Stool Consistency formed Stool Color Brown # Voids 1 1 # Bowel Movements 1 Blood Glucose* 208 174 153 Incision: clean and dry - Diagnostic Results Knee MRI: image reviewed - Labs CBC & BMP: 05/23/18 02:23 05/23/18 02:23 Labs: Abnormal lab results MCV 82.2 fL (83.0-100.0) L 05/23/18 02:23 MCH 26.0 pg (28.0-33.3) L 05/23/18 02:23 RDW 15.3 % (11.5-14.5) H 05/23/18 02:23 ESR 62 mm/hr (0-15) H 05/21/18 19:49 Potassium 3.0 mEq/L (3.5-5.1) L 05/23/18 02:23 Glucose 165 mg/dL (70-105) H 05/23/18 02:23 POC Glucose 174 mg/dL (70-99) H 05/23/18 10:29 Calcium 8.3 mg/dL (8.6-10.3) L 05/23/18 02:23 C-Reactive Protein 16 mg/L (Less than 10) H 05/21/18 19:49 Vancomycin Trough 11 mcg/mL (5-10) H 05/23/18 08:52 Consult Discharge Plan - Plan Referrals: Shoshana Davis MD [Primary Care Provider] -
[2018-05-23] MEDS: Ziprasidone 80 MG CAPSULE PO SCH (22:29)
[2018-05-24 07:49] LABS: Basophils % 0.5 %; Eosinophils # 0.2 K/mcL (0.0-0.6); Eosinophils % 2.4 %; Hematocrit 33.8 % (35.3-44.9); Immature Granulocytes % 0.3 % (0-4); Lymphocytes # 2.2 K/mcL (0.6-4.6); Lymphocytes % 35.3 %; Mean Corpuscular HGB Conc 32.5 g/dL (31.6-35.5); Mean Corpuscular Hemoglobin 26.3 pg (28.0-33.3); Mean Corpuscular Volume 80.9 fL (83.0-100.0); Mean Platelet Volume 9.8 fL (9.4-12.4); Monocytes # 0.4 K/mcL (0.0-1.3); Monocytes % 6.6 %; Neutrophils # 3.4 K/mcL (1.6-8.9); Platelet Count 186 K/mcL (140-400); Red Blood Count 4.18 M/mcL (3.82-4.97); Red Cell Distribution Width 14.9 % (11.5-14.5); Segmented Neutrophils % 54.9 %
--- NOTE | 2018-05-24 08:12 | Internal Med Progress Note ---
Hospitalist Progress Note - Encounter Date of Encounter: 05/24/18 Time of Encounter: 12:15 - Subjective Interval History: Ms Kirby is currently admitted for OM of tib/fib of BKA on L. She remains moderate to high risk due to potential for worsening clinical status. Ms Kirby is feeling OK. She is working with Dr. Fernandez about future plans. Pain has been an issue today. No fever or chills. Tolerating meds. Cultures pending. - Exam Vitals: Temp Pulse Resp BP Pulse Ox 97.3 F L 63 16 102/65 97 05/24/18 07:00 05/24/18 07:00 05/24/18 07:00 05/24/18 07:00 05/24/18 07:00 Exam: General: Alert and oriented. Comfortable at this time. Skin: Normal color, no rash, no lesions. H: Normocephalic. EENT: EOMI, Mucus membranes moist. Cardiovascular: Normal S1 & S2,Pulse regular. Lungs: Normal breath sounds, no wheezes or crackles. Abdomen: Soft, non-tender, Extremities: L BKA. No edema Neurological: Normal cognition and motor skills. Pulses: radial pulses normal +2. Rest of the physical exam is non contributory - Assessment and Plan (1) Osteomyelitis Current Visit: Yes Status: Acute Assessment and Plan: Osteomyelitis of left leg -Patient complained of infection of distal left leg complain bone was protruding to the skin and drainage coming from the wound. -Patient with below knee amputation of left leg about 2 years ago with multiple revisions. -Afebrile, WBC WNL -ESR 62, CRP 16 -blood culture pending -tibia/fibula x-ray findings highly suspicious for osteomyelitis involving the stump -lower extremity MRI showing large abscess with large rim enhancing fluid collection at the stump measuring 2.1 x 3.8 x 2.0 cm. Surrounding cellulitis. Osteomyelitis of the distal stump with patchy marrow edema and post contrast enhancement extending to the level of the proximal metaphysis. Findings highly suspicious for osteomyelitis proximally. Edema and subchondral signal change of the medial tibial plateau into a lesser extent the anterior aspect of the medial femoral condyle. Findings may reflect reactive/mechanical marrow edema. Plan: -Currently on IV abx. Had aspiration of fluid collection. Culture pending. Ortho requests ID to see. (2) Type 2 diabetes mellitus Current Visit: Yes Status: Chronic Assessment and Plan: History of insulin-dependent diabetes -glucose stable -continue low-dose sliding scale insulin -continue Accu check -diabetic diet Fair control at this time. (3) Hypertension Current Visit: Yes Status: Chronic Assessment and Plan: History of hypertension taking lisinopril and coreg -blood pressure stable -continue home medications (4) CAD (coronary artery disease) Current Visit: Yes Status: Chronic Assessment and Plan: Continue home medications. - Time Spent with Patient Total time spent is greater than 50% in coordination of care (as documented) at patient's floor/unit and/or counseling patient: Internal Medicine: Result - Labs CBC & Chem 7: 05/24/18 06:43 05/24/18 06:43 Labs: Short CBC 05/24/18 Range/Units 06:43 WBC 6.2 (4.3-11.1) K/mcL Hgb 11.0 L (11.5-15.4) g/dL Hct 33.8 L (35.3-44.9) % Plt Count 186 (140-400) K/mcL Neutrophils # 3.4 (1.6-8.9) K/mcL - Impressions Impressions Lower Extremity MRI 05/23/18 12:29 IMPRESSION: 1. Large rim enhancing fluid collection at the stump measuring 2.1 x 3.8 x 2.0 cm most compatible with large abscess given history. Surrounding subcutaneous edema and postcontrast enhancement consistent with cellulitis. 2. Osteomyelitis of the distal stump with patchy marrow edema and postcontrast enhancement extending to the level of the proximal metaphysis. Findings highly suspicious for osteomyelitis proximally. 3. Edema and subchondral signal change of the medial tibial plateau and to a lesser extent the anterior aspect of the medial femoral condyle. Findings may reflect reactive/mechanical marrow edema. 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 transplanted heart: [place] heart Associated angina: without angina Qualified Code(s): I25.10 - Atherosclerotic heart disease of [place] coronary artery wi thout angina pectoris
[2018-05-24] MEDS: Cefepime HCl 2,000 MG in 0.9 % Sodium Chloride Mini Bag 100 ML IVPB SCH ×2 (08:24→17:17)
[2018-05-24] MEDS: Loratadine 10 MG TABLET PO SCH (08:31)
[2018-05-24] MEDS: Lisinopril-HCTZ 20-12.5mg TABLET PO SCH (08:31)
[2018-05-24] MEDS: Famotidine 20 MG TABLET PO SCH ×2 (08:31→21:32)
[2018-05-24] MEDS: Insulin LISPRO 300 UNITS/3 ML VIAL SQ SCH ×4 (08:33→21:34)
[2018-05-24] MEDS: Fluticasone Propionate Nasal 50 MCG/SPRAY BOTTLE NS SCH (08:34)
[2018-05-24] MEDS: *HR* OxyCODONE Immed Rel 5 MG TABLET PO PRN ×4 (08:40→21:33)
[2018-05-24 08:58] LABS: BUN/Creatinine Ratio 25 (6-26); Blood Urea Nitrogen 18 mg/dL (6-20); Calcium 8.7 mg/dL (8.6-10.3); Carbon Dioxide 24 mEq/L (23-29); Chloride 107 mEq/L (98-107); Glucose 172 mg/dL (70-105); Osmolality,Calculated 294 (280-300); Potassium 3.2 mEq/L (3.5-5.1); Sodium 139 mEq/L (136-145); eGFR For Non-African Americans > 60 (> 60)
[2018-05-24 10:40] LABS: C-Reactive Protein 15 mg/L (Less than 10)
[2018-05-24] MEDS ORDERED: *HR* OxyCODONE Immed Rel 5 MG TABLET PO SCH (16:00)
--- NOTE | 2018-05-24 16:51 | Orthopedics Progress Note ---
Date of Encounter: 05/24/18 Time of Encounter: 16:40 Subjective Principal diagnosis: Left BKA infection Interval history: 05/23/2018. Patient states the left BKA is feeling better. Less swelling and less pain. Denies chills fevers etc. Vital signs are stable. Patient is afebrile. Stump appears stable with a cystic area distally over the stump. This is over the tibial. No evidence of drainage. No significant swelling about the knee. MRI of the BKA was reviewed. There is fluid consistent with the clinical appearance. There are marked changes within the tibia at the level of the amputation site. Findings are consistent with osteomyelitis of the tibia proper. There are some subchondral marrow edema changes seen in the medial tibial plateau. Unclear if these are related to arthritis or an infectious process. White blood cell count remains normal. Impression: Suspected osteomyelitis left BKA stump. Recommendation: Had an extremely long discussion with the patient regarding the history of the amputation as well as the treatment delivered thus far. 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 It appears that she did well until 6 or 8 months ago when she had a revision of the BKA due to bony overgrowth. It does not appear that antibiotics were utilized at that time. The presence of the bone cement in the distal tibia is puzzling in that light. The patient states that she is having problems with fluid and swelling for probably the past 2 months. She states that beginning of the complaints she was on antibiotics but has been off antibiotics for probably a month. She has been on IV antibiotics for 2 days now with improvement but persistent swelling in the stump tip. I discussed with the patient and I suspect she has several options and none of these are urgent as she is not septic Andrei dealing with a draining wound. Could continue to treat her slowly with IV antibiotics I do not feel that this is going to try to eradicate the problem and we do not have a organism. The other option would be to "clean up the infection with a potential revision of the BKA, I discussed with the patient that this is very unpredictable and could not guarantee her success. The potentially more definitive treatment would be proceeding to AKA with the difficulty in ambulating with an AKA prosthesis. After much discussion we elected to proceed with an aspiration of the distal tibia. Informed consent was obtained and utilizing a Betadine prep the cystic area was entered and aspirated of approximately 15 mL of a cloudy pink thick fluid. Cultures were obtained. Discussed with the patient that information gathered from this culture could help in decision making. Also discussed that this may not provide an answer as she has been on antibiotics for a period of time and the culture results may be skewed. Other option would be to have additional input, probably from infectious disease to get an opinion as to further treatment. 05/24/2018. Patient appears very comfortable. Has decided she would like to proceed with an above-knee amputation to "eliminate the infection" Vital signs are stable. Patient is afebrile. Stump is clean and dry. No drainage. Minimal edema. Sensitive to touch and palpation. Hemoglobin is stable at 11. Normal white count. Sedimentation rate has dropped to 45 from 62. CRP has dropped from 16 to 15. Aspiration results are not available at thi s time. Impression: Infection left BKA stump, possible osteomyelitis. Recommendations: Discussed with the patient that I would not recommend any urgent surgery. Discussed with the patient that I would recommend an infectious disease consultation to get additional input and I would like to review her previous surgical procedures further. I am puzzled as to the presence of a bone plug in the distal tibia, question if this was a antibiotic impregnated plug that was inserted with the intention of having it removed. I would also wait until we have some definition of the organism we are currently treating. Discussed with the patient that the culture results may be negative due to her antibiotic use. Objective Vital signs: Vital Signs Temp Pulse Resp BP Pulse Ox 05/24/18 15:44 98.3 F 67 16 108/66 98 05/24/18 11:00 98.3 F 66 16 97/59 97 05/24/18 08:45 97 05/24/18 07:00 97.3 F L 63 16 102/65 97 05/24/18 03:47 98.0 F 66 17 93/56 95 05/23/18 23:03 100.0 F H 77 16 125/68 97 05/23/18 19:20 99.9 F H 75 15 122/62 95 Intake and Output 05/24/18 05/24/18 05/24/18 07:59 15:59 23:59 Intake Total 1122 / 1122 1190 / 1190 Output Total 600 / 600 400 / 400 Balance 522 / 522 790 / 790 Intake: IV Fluids 1122 / 1122 350 / 350 Maxipime 2,000 MG In 0.9 % 100 / 100 100 / 100 Sodium Chloride (Mini-Bag +) 100 ML @ 200 mls/hr IVPB Q8HR [facility] Rx#:[id number] Vancocin 1,250 MG In 0.9 % 250 / 250 250 / 250 Sodium Chloride 250 ML @ 166.67 mls/hr IVPB Q12H [facility] Rx#: [id number] Oral 0 / 0 840 / 840 Output: Urine 600 / 600 400 / 400 Other: Meal Lunch Percent of Meal Consumed 100% Stool Size Small Moderate Stool Consistency formed Stool Color Brown Brown # Bowel Movements 1 1 Weight 85.3 kg Blood Glucose* 144 181 Patient Weight 05/24/18 23:59 Weight 85.3 kg Incision: clean and dry - Labs CBC & BMP: 05/24/18 06:43 05/24/18 06:43 Labs: Abnormal lab results Hgb 11.0 g/dL (11.5-15.4) L 05/24/18 06:43 Hct 33.8 % (35.3-44.9) L 05/24/18 06:43 MCV 80.9 fL (83.0-100.0) L 05/24/18 06:43 MCH 26.3 pg (28.0-33.3) L 05/24/18 06:43 RDW 14.9 % (11.5-14.5) H 05/24/18 06:43 ESR 45 mm/hr (0-15) H 05/24/18 06:43 Potassium 3.2 mEq/L (3.5-5.1) L 05/24/18 06:43 Glucose 172 mg/dL (70-105) H 05/24/18 06:43 POC Glucose 144 mg/dL (70-99) H 05/24/18 07:54 C-Reactive Protein 15 mg/L (Less than 10) H 05/24/18 06:43 Vancomycin Trough 15 mcg/mL (5-10) H 05/24/18 06:43 Consult Discharge Plan - Plan Referrals: Shoshana Davis MD [Primary Care Provider] -
[2018-05-24] MEDS: rOPINIRole 3 MG, rOPINIRole 2 MG PO SCH (21:31)
[2018-05-24] MEDS: Ziprasidone 80 MG CAPSULE PO SCH (21:33)
[2018-05-25] MEDS: Cefepime HCl 2,000 MG in 0.9 % Sodium Chloride Mini Bag 100 ML IVPB SCH ×4 (00:28→23:40)
[2018-05-25] MEDS: *HR* OxyCODONE Immed Rel 5 MG TABLET PO PRN ×4 (05:56→21:50)
[2018-05-25] MEDS: Loratadine 10 MG TABLET PO SCH (08:04)
[2018-05-25] MEDS: Lisinopril-HCTZ 20-12.5mg TABLET PO SCH (08:04)
[2018-05-25] MEDS: Famotidine 20 MG TABLET PO SCH ×2 (08:04→21:10)
[2018-05-25] MEDS: Fluticasone Propionate Nasal 50 MCG/SPRAY BOTTLE NS SCH (08:05)
[2018-05-25] MEDS: Insulin LISPRO 300 UNITS/3 ML VIAL SQ SCH ×4 (08:05→21:10)
[2018-05-25] MEDS ORDERED: Aminoglycoside Consult 1 EACH MC ONE (08:57)
[2018-05-25] MEDS ORDERED: Lisinopril-HCTZ 20-12.5mg TABLET PO SCH (09:00)
--- NOTE | 2018-05-25 09:16 | Internal Med Progress Note ---
<Niki Dunne N - Last Filed: 05/25/18 14:54> Hospitalist Progress Note - Encounter Date of Encounter: 05/25/18 Time of Encounter: 09:16 - Subjective Interval History: Patient seen and evaluated at the bedside. She endorses ongoing pain in her left BKA stump, which she currently rates as 9/10 in intensity. She describes the pain as intermittently sharp and/or burning in character. She states that the pain medication has not been helping very much. She denies any fevers, chills, or body aches. She denies any other complaints or concerns at this time. - Exam Vitals: Temp Pulse Resp BP Pulse Ox 97.7 F 71 16 102/52 97 05/25/18 07:23 05/25/18 07:23 05/25/18 07:23 05/25/18 07:23 05/25/18 07:23 Exam: GENERAL: Well-developed, well-nourished adult female in no acute distress. HEENT: Atraumatic and normocephalic. CARDIOVASCULAR: Regular rate and rhythm. S1 and S2 present. No murmurs, gallops, or rubs. RESPIRATORY: Clear to auscultation bilaterally. Chest rises and falls symmetrically without accessory muscle use. GASTROINTESTINAL: Abdomen is soft, nontender, nondistended. EXTREMITIES: No clubbing, cyanosis, or edema. Left lower extremity is surgically absent below the knee, with clean dressings in place. SKIN: Warm, dry, and intact. NEUROLOGIC: Alert and oriented x3. Patient is cooperative with exam and answers questions appropriately. No apparent focal deficits. PSYCHIATRIC: Appropriate mood and affect. 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 Patient has had multiple revisions, and has reportedly been having trouble with this for the last several months, with wound care managed by Dr. Veras. Per review of ED documentation, patient reportedly had visible bone with wound drainage at the time of presentation. Initial laboratory studies demonstrated WBC WNL, elevated ESR of 62, and CRP of 16. Blood cultures were obtained, and patient was started on empiric antibiotic therapy with vancomycin and cefepime. X-ray performed on 05/21/18 demonstrated findings highly suspicious for osteomyelitis involving the stump with suggestion of soft tissues tract extendi ng from the lateral skin. Subsequent MRI performed on 05/23/18 demonstrated large rim enhancing fluid collection at the stump measuring 2.1 x 3.8 x 2.0 cm most compatible with large abscess with surrounding subcutaneous in edema and post contrast enhancement consistent with cellulitis. Patient was also found to have osteomyelitis of the distal stump with patchy marrow edema and enhancement extending to the level of the proximal metaphysis highly suspicious for proximal osteomyelitis. Patient was evaluated by orthopedic surgery, who performed aspiration of tibial abscess. Preliminary fluid cultures are significant for growth of gram-negative rods. Plan: - Continue cefepime; discontinue vancomycin per ID recommendation. - Repeat and trend daily CBC. - Final aspirate culture pending. - Further recommendations per ID and orthopedic surgery. (2) Type 2 diabetes mellitus Current Visit: Yes Status: Chronic Assessment and Plan: History of diabetes with long-term use of insulin. - Accuchecks and low-dose SSI ACHS. (3) Hypertension Current Visit: Yes Status: Chronic (4) CAD (coronary artery disease) Current Visit: Yes Status: Chronic Assessment and Plan: - Continue home medications. (5) DVT prophylaxis Current Visit: Yes Status: Acute Assessment and Plan: - Heparin 5000units Q12H. (6) Leg pain Current Visit: Yes Status: Acute Assessment and Plan: Patient complains of significant lower extremity pain, which she currently rates as 9/10 in intensity. She has been reporting little improvement with oxycodone 10 mg. Patient reports that she takes "whatever she can get" for pain at home, and admits to procuring pain medication from multiple sources. She states that she normally takes Percocet at home, with single doses ranging from 10-30 mg at one time. She states that she has been prescribed tramadol; however, she says that this does not help her pain. Patient describes her pain as "burning" in character, and denies having tried medications for neuropathic pain; however, she is agreeable to a trial of neurontin. Plan: - Continue analgesics PRN. - Start gabapentin 100mg TID. - Time Spent with Patient Total time spent is greater than 50% in coordination of care (as documented) at patient's floor/unit and/or counseling patient: Internal Medicine: Result - Labs CBC & Chem 7: 05/25/18 11:08 05/25/18 11:08 Consult Discharge Plan - Plan Referrals: Losch,Shoshana G, MD [Primary Care Provider] - <Ga Alexandra A - Last Filed: 05/25/18 16:42> Hospitalist Progress Note - Encounter Date of Encounter: 05/25/18 - Exam Vitals: Temp Pulse Resp BP Pulse Ox 98.7 F 61 18 96/56 96 05/25/18 13:56 05/25/18 13:56 05/25/18 13:56 05/25/18 13:56 05/25/18 13:56 - Assessment and Plan (1) Osteomyelitis Current Visit: Yes Status: Acute (2) Type 2 diabetes mellitus Current Visit: Yes Status: Chronic (3) Hypertension Current Visit: Yes Status: Chronic (4) DVT prophylaxis Current Visit: Yes Status: Acute (5) CAD (coronary artery disease) Current Visit: Yes Status: Chronic (6) Leg pain Current Visit: Yes Status: Acute - Time Spent with Patient Total time spent is greater than 50% in coordination of care (as documented) at patient's floor/unit and/or counseling patient: Internal Medicine: Result - Labs CBC & Chem 7: 05/25/18 11:08 05/25/18 11:08 Labs: Short CBC 05/25/18 Range/Units 11:08 WBC 6.8 (4.3-11.1) K/mcL Hgb 11.2 L (11.5-15.4) g/dL Hct 34.6 L (35.3-44.9) % Plt Count 218 (140-400) K/mcL Neutrophils # 4.3 (1.6-8.9) K/mcL BMP 05/25/18 11:08 Sodium 138 Potassium 3.8 Chloride 107 Carbon Dioxide 24 BUN 20 Creatinine 0.82 Glucose 214 H Calcium 8.9 - Attending Attestation I examined this patient and my medical decision-making was reviewed with the Resident Physician on 05/25/18. I agree with the documented findings, disposition and treatment plan as described except to the extent set forth below. Ms Kirby is currently admitted for OM of L BKA. She remains moderate to high risk due to potential for worsening clinical status. Ms Kirby is doing OK at this time. Has burning pain in leg. No fever or chills. No CP or SOB at this time. Exam alert Comfortable Mucus membranes dry Heart reg No wheeze abd soft No drainage from stump. I/P 1. OM - culture growing gram neg rods. On IV abx. ID to see today. 2. Pain - appears neuropathic. Neurontin added. 3. DM 4. CAD 5. HTN Further diagnoses and plan as above. <Niki Dunne N - Last Filed: 05/25/18 14:54> (1) Osteomyelitis Qualifiers: Osteomyelitis type: acute hematogenous Osteomyelitis location: tibia La terality: left Qualified Code(s): M86.062 - Acute hematogenous osteomyelitis, left tibia and fibula (2) Type 2 diabetes mellitus Qualifiers: Diabetes mellitus emt intermediate insulin use: with jail use Diabetes mellitus complication status: with skin complications Diabetes mellitus complication detail: with other skin complication Qualified Code(s): E11.628 - Type 2 diabetes mellitus with other skin complications; Z79.4 - jail (current) use of insulin (3) Hypertension Qualifiers: Hypertension type: essential hypertension Qualified Code(s): I10 - Essential (primary) hypertension (4) CAD (coronary artery disease) Qualifiers: Coronary Disease-Associated Artery/Lesion type: [place] artery [place] vs. transplanted heart: [place] heart Associated angina: without angina Qualified Code(s): I25.10 - Atherosclerotic heart disease of [place] coronary artery without angina pectoris (6) Leg pain Qualifiers: Laterality: left Qualified Code(s): M79.605 - Pain in left leg <Ga Alexandra - Last Filed: 05/25/18 16:42> (1) Osteomyelitis Qualifiers: Osteomyelitis type: acute hematogenous Osteomyelitis location: tibia Laterality: left Qualified Code(s): M86.062 - Acute hematogenous osteomyelitis, left tibia and fibula (2) Type 2 diabetes mellitus Qualifiers: Diabetes mellitus emt intermediate insulin use: with emt intermediate use Diabetes mellitus complication status: with skin complications Diabetes mellitus complication detail: with other skin complication Qualified Code(s): E11.628 - Type 2 diabetes mellitus with other skin complications; Z79.4 - jail (current) use of insulin (3) Hypertension Qualifiers: Hypertension type: essential hypertension Qualified Code(s): I10 - Essential (primary) hypertension (5) CAD (coronary artery disease) Qualifiers: Coronary Disease-Associated Artery/Lesion type: [place] artery [place] vs. transplanted heart: [place] heart Associated angina: without angina Qualified Code(s): I25.10 - Atherosclerotic heart disease of [place] coronary artery without angina pectoris (6) Leg pain Qualifiers: Laterality: left Qualified Code(s): M79.605 - Pain in left leg
--- NOTE | 2018-05-25 09:57 | Infectious Disease Consult ---
Infectious Disease-Consult - Encounter Date/Time Date of Encounter: 05/25/18 Time of Encounter: 10:15 - Data of Consult Requesting Physician: Ga Alexandra DO Primary Care Provider: Shoshana Davis MD - HPI HPI: Mrs. Kirby is a 57-year-old female who was admitted to [facility] for osteomyelitis of her left below knee stump on 05/21/2018. Infectious disease was consulted on 05/25/2018 for an infected BKA. The patient is a 57-year-old female with a pertinent past medical history of IDDM, HTN, HLD, and a prior left BKA approximately two years ago for reported MRSA foot infection with prior revisions who was admitted for a suspected infection of her left below knee stump. She has a chornic ulceration of her stump for which she follows with wound care. Patient presented to the hospital with a chief complaint of drainage from her wound site for several months. She states that her wound would drain purulent material off and on over approximately 2 months. She was treated with outpatient clindamycin several weeks ago but states that it did not help her symptoms. On day of presentation her pain was worse and she noted more drainage which prompted her to contact her wound care clinic who instructed her to visit the emergency department. On presentation she was borderline tachycardic, but otherwise hemodynamically stable. There was no evidence of leukocytosis, but her lactic acid level was elevated at 2.9. ESR and CRP were also mildly elevated at 62 and 16, respectively. Blood and wound cultures were collected, patient was started on empiric vancomycin and cefepime, and podiatry was consulted. During her hospitalization an xray of the left tibia/fibula was obtained and found to be highly suspicious for osteomylitis of the stump, there was also soft tissue tracking extending from the lateral skin. A follow up MRI was obtained that showed osteomyelitis and a large fluid collection concerning for abscess. Orthopedic surgery was consulted and an aspiration of the distal tibia was performed and sent for cultures. Preliminary cultures from the fluid are growing a gram negative wong. Patient has remained hemodynamically stable during this admission and has had no significant abnormalities in her labs. Her WBC count has remained within normal limits, creatinine stable at 0.73, and vancomycin trough at 15. Currently the patient is resting comfortably in her room. She admits to subjective chills, but denies fevers, chest pain, SOB, abdominal pain, N/V/D/C, dysuria, hematuria, melena/hematochezia, or any other wounds or ulcerations. She admits to tenderness along her stump but denies any further purulent discharge from the ulcer since her admission. - ROS Review of Systems: 10 system review of systems obtained and negative except as stated in HPI - Results CBC & Chem 7: 05/26/18 02:48 05/26/18 02:48 - Exam Vitals: Temp Pulse Resp BP Pulse Ox 97.7 F 71 16 102/52 97 05/25/18 07:23 05/25/18 07:23 05/25/18 07:23 05/25/18 07:23 05/25/18 07:23 Exam: General: resting comfortably out of bed in chair, no acute distress HEENT: head is atraumatic and normocephalic, pupils are equal, EOMI, mucosa moist, external ears and nares are patent Neck: no JVD, trachea midline Chest: symmetrical chest wall rise, no tenderness to palpation Cardiovascular: regular rate and rhythm, no murmurs Respiratory: clear to auscultation bilaterally, no rales ronchi or wheezing Abdomen: soft, nontender, no guarding or rigidity Extremities: Left BKA, small half centimeter ulceration noted at the distal inferior aspect of her stump. Unable to express purulent material or fluid on palpation. Significant tenderness to palpation in and surrounding the ulceration. No overlying erythema or edema noted. Neurological: no obvious focal neurological deficits Psych: pleasant, appropriate mood and affect Albuterol Neb [Proventil Neb] 2.5 mg IH Q6H PRN 05/22/18 [History] Albuterol Sulfate [Albuterol Inhaler] 2 puff IH Q4H PRN 05/22/18 [History] Allopurinol [Zyloprim 100 MG] 100 mg PO DAILY 05/22/18 [History] Atorvastatin Calcium [Lipitor] 80 mg PO DAILY 05/22/18 [History] Carvedilol [Coreg] 25 mg PO BID 05/22/18 [History] Estrogens, Conjugated [Premarin] 0.3 mg PO DAILY 05/22/18 [History] Fluticasone Propionate Nasal [Flonase] 2 spray NS 3-4XD 05/22/18 [History] Insulin Glargine,Hum.rec.anlog [Basaglomayra Zhang U-100] 30 units SQ DAILY 05/22/18 [History] Montelukast [Singulair] 10 mg PO DAILY 05/22/18 [History] Pantoprazole Sodium [Protonix] 40 mg PO DAILY 05/22/18 [History] Paroxetine HCl [Paxil Cr] 37.5 mg PO DAILY 05/22/18 [History] RX: Loratadine [Allergy Relief] 10 mg PO DAILY 05/22/18 [History] RX: Meloxicam 7.5 mg PO BID PRN 05/22/18 [History] Ropinirole HCl [Requip] 5 mg PO HS 05/22/18 [History] SUMAtriptan Succinate [Imitrex] 100 mg PO AD PRN 05/22/18 [History] Ziprasidone [Geodon] 160 mg PO HS 05/22/18 [History] raNITIdine HCl [Zantac] 150 mg PO BID 05/22/18 [History] Lisinopril/Hydrochlorothiazide [Zestoretic 20-12.5 mg Tablet] 1 tab PO DAILY 05/23/18 [History] RX: Magic Mouthwash 10 ml PO TID PRN 05/23/18 [History] Allergy/AdvReac Type Severity Reaction Status Date / Time acetaminophen Allergy Nausea Verified 05/21/18 18:05 [From Darvocet-N 100] escitalopram [From Lexapro] Allergy Confusion Verified 05/21/18 18:05 latex Allergy See Verified 05/21/18 18:05 Comments levofloxacin [From Levaquin] Allergy Nausea Verified 05/21/18 18:05 [place] Allergy Confusion Verified 05/21/18 18:05 propoxyphene Allergy Nausea Verified 05/21/18 18:05 [From Darvocet-N 100] sumatriptan [From Imitrex] Allergy See Verified 05/21/18 18:05 Comments hydrocodone AdvReac See Verified 05/21/18 18:05 Comments - Assessment and Plan (1) Osteomyelitis Current Visit: Yes Status: Acute -Osteomyelitis and abscess formation secondary to infected below knee stump -Patient previously failed outpatient treatment with clindamycin -Has had increasing purulent discharge from a chronic nonhealing ulcer of the stump -On admission she was not septic, but lactic acid, ESR, and CRP were elevated -Imaging studies revealed osteomyelitis and a large fluid collection at the stump -Started on empiric vancomycin and cefepime -Orthopedic surgery was consulted and the fluid collection was drained and sent for culture -Fluid culture is growing gram negative wong, blood cultures NGTD Plan: -Currently on day 4 of vancomycin and cefepime -Recommend discontinuing vancomycin -Continue cefepime 2g Q8H for GNR and pseudomonal coverage -Recommend midline placement on discharge for IV abx -Follow up on culture and sensitivites -If patient spikes a fever repeat blood cultures -Appreciate orthopedic surgery recommendation Qualifiers: Qualified Code(s): M86.062 - Acute hematogenous osteomyelitis, left tibia and fibula SNOMED Code(s): 35710965 (2) Abscess Current Visit: Yes Status: Acute plan as above SNOMED Code(s): 254122429 (3) Type 2 diabetes mellitus Current Visit: Yes Status: Chronic Qualifiers: Qualified Code(s): E11.628 - Type 2 diabetes mellitus with other skin complications; Z79.4 - correction (current) use of insulin SNOMED Code(s): 10802532 Past Med Surg Social Fam HX - Past Medical History Medical history: diabetes, fibromyalgia, hyperlipidemia, hypertension, myocardial infarction Psychiatric history: anxiety, depression - Past Surgical History Additional surgical history: Left BKA - Social History Smoking Status: Never smoker Smokeless Tobacco Status: No Alcohol use: none Drug use: none - Family History Father Hx Family Cardiac Disorders: Yes Mother Hx Family Cancer: Yes (ovarian, breast) Sister Hx Family Cardiac Disorders: Yes Consult Discharge Plan - Plan Referrals: Shoshana Davis MD [Primary Care Provider] - - Attending Attestation I examined this patient and my medical decision-making was reviewed with the Resident Physician. I agree with the documented findings, disposition and treatment plan as described except to the extent set forth below. Patient is a 57-year-old woman who is admitted for osteomyelitis of left below- knee stump and we are consult for antibiotic recommendations. Clinically patient appears comfortable laying in bed eager to go home. Nontoxic. Assessment and plan: 1.Osteomyelitis of left BKA causative organism gram-negative wong 5 4 times a day pending 2.Abscess left stump status post I&D 3.Diabetes mellitus type 2 Recommendations d/c vancomycin Continue cefepime 2 g IV every 8 hours Once cultures finalize we will tailor antibiotics depending on the culture results Duration of treatment at least 6 weeks Patient will need a PICC or midline depending on which antibiotics were used Monitor labs and for drug toxicity
[2018-05-25 12:05] LABS: BUN/Creatinine Ratio 24 (6-26); Blood Urea Nitrogen 20 mg/dL (6-20); Calcium 8.9 mg/dL (8.6-10.3); Carbon Dioxide 24 mEq/L (23-29); Chloride 107 mEq/L (98-107); Glucose 214 mg/dL (70-105); Osmolality,Calculated 295 (280-300); Potassium 3.8 mEq/L (3.5-5.1); Sodium 138 mEq/L (136-145); eGFR For Non-African Americans > 60 (> 60)
[2018-05-25 12:07] LABS: Basophils % 0.3 %; Eosinophils # 0.2 K/mcL (0.0-0.6); Eosinophils % 2.5 %; Hematocrit 34.6 % (35.3-44.9); Hemoglobin 11.2 g/dL (11.5-15.4); Immature Granulocytes % 0.4 % (0-4); Lymphocytes # 1.9 K/mcL (0.6-4.6); Lymphocytes % 28.4 %; Mean Corpuscular HGB Conc 32.4 g/dL (31.6-35.5); Mean Corpuscular Hemoglobin 26.3 pg (28.0-33.3); Mean Corpuscular Volume 81.2 fL (83.0-100.0); Mean Platelet Volume 9.9 fL (9.4-12.4); Monocytes # 0.4 K/mcL (0.0-1.3); Neutrophils # 4.3 K/mcL (1.6-8.9); Platelet Count 218 K/mcL (140-400); Red Blood Count 4.26 M/mcL (3.82-4.97); Red Cell Distribution Width 15.1 % (11.5-14.5); Segmented Neutrophils % 62.4 %
[2018-05-25] MEDS: Gabapentin 100 MG CAPSULE PO SCH ×2 (14:00→21:10)
[2018-05-25] MEDS: *HR* Heparin 5,000 UNIT/ML VIAL SQ SCH (17:46)
--- NOTE | 2018-05-25 19:48 | Orthopedics Progress Note ---
Date of Encounter: 05/25/18 Time of Encounter: 19:41 Subjective Principal diagnosis: Left BKA infection Interval history: 05/23/2018. Patient states the left BKA is feeling better. Less swelling and less pain. Denies chills fevers etc. Vital signs are stable. Patient is afebrile. Stump appears stable with a cystic area distally over the stump. This is over the tibial. No evidence of drainage. No significant swelling about the knee. MRI of the BKA was reviewed. There is fluid consistent with the clinical appearance. There are marked changes within the tibia at the level of the amputation site. Findings are consistent with osteomyelitis of the tibia proper. There are some subchondral marrow edema changes seen in the medial tibial plateau. Unclear if these are related to arthritis or an infectious process. White blood cell count remains normal. Impression: Suspected osteomyelitis left BKA stump. Recommendation: Had an extremely long discussion with the patient regarding the history of the amputation as well as the treatment delivered thus far. 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 It appears that she did well until 6 or 8 months ago when she had a revision of the BKA due to bony overgrowth. It does not appear that antibiotics were utilized at that time. The presence of the bone cement in the distal tibia is puzzling in that light. The patient states that she is having problems with fluid and swelling for probably the past 2 months. She states that beginning of the complaints she was on antibiotics but has been off antibiotics for probably a month. She has been on IV antibiotics for 2 days now with improvement but persistent swelling in the stump tip. I discussed with the patient and I suspect she has several options and none of these are urgent as she is not septic Andrei dealing with a draining wound. Could continue to treat her slowly with IV antibiotics I do not feel that this is going to try to eradicate the problem and we do not have a organism. The other option would be to "clean up the infection with a potential revision of the BKA, I discussed with the patient that this is very unpredictable and could not guarantee her success. The potentially more definitive treatment would be proceeding to AKA with the difficulty in ambulating with an AKA prosthesis. After much discussion we elected to proceed with an aspiration of the distal tibia. Informed consent was obtained and utilizing a Betadine prep the cystic area was entered and aspirated of approximately 15 mL of a cloudy pink thick fluid. Cultures were obtained. Discussed with the patient that information gathered from this culture could help in decision making. Also discussed that this may not provide an answer as she has been on antibiotics for a period of time and the culture results may be skewed. Other option would be to have additional input, probably from infectious disease to get an opinion as to further treatment. 05/24/2018. Patient appears very comfortable. Has decided she would like to proceed with an above-knee amputation to "eliminate the infection" Vital signs are stable. Patient is afebrile. Stump is clean and dry. No drainage. Minimal edema. Sensitive to touch and palpation. Hemoglobin is stable at 11. Normal white count. Sedimentation rate has dropped to 45 from 62. CRP has dropped from 16 to 15. Aspiration results are not available at thi s time. Impression: Infection left BKA stump, possible osteomyelitis. Recommendations: Discussed with the patient that I would not recommend any urgent surgery. Discussed with the patient that I would recommend an infectious disease consultation to get additional input and I would like to review her previous surgical procedures further. I am puzzled as to the presence of a bone plug in the distal tibia, question if this was a antibiotic impregnated plug that was inserted with the intention of having it removed. I would also wait until we have some definition of the organism we are currently treating. Discussed with the patient that the culture results may be negative due to her antibiotic use. 05/25/2018. Patient states the pain is unchanged. Denies any drainage. States she was started on Neurontin. Vital signs are stable. Patient is afebrile. White blood cell count is normal. Hemoglobin stable. Stump is improved. Much less edema. No drainage. Aspirate cultures show a preliminary a gram-negative wong. Impression: Left BKA stump infection, suspected osteomyelitis. Preliminary cultures revealed gram-negative wong. Recommendation: Appreciate infectious disease input. Will await final culture results before deciding on decision in regards to surgical intervention. Discussed with the patient a gram-negative rods extremely difficult to eradicate from bone and the patient may require AKA for more definitive treatment without an absolute guarantee that the infection has been eradicated. Patient understands and agrees with care as outlined. Objective Vital signs: Vital Signs Temp Pulse Resp BP Pulse Ox 05/25/18 13:56 98.7 F 61 18 96/56 96 05/25/18 11:21 98.1 F 60 18 94/61 96 05/25/18 07:23 97.7 F 71 16 102/52 97 05/25/18 05:13 97.7 F 57 17 90/54 96 Intake and Output 05/25/18 05/25/18 05/25/18 07:59 15:59 23:59 Intake Total 350 / 350 460 / 460 240 / 240 Output Total 1000 / 1000 Balance 350 / 350 -540 / -540 240 / 240 Intake: IV Fluids 350 / 350 100 / 100 Maxipime 2,000 MG In 0.9 % 100 / 100 100 / 100 Sodium Chloride (Mini-Bag +) 100 ML @ 200 mls/hr IVPB Q8HR [facility]ERO[facility] Rx#:[id number] Vancocin 1,250 MG In 0.9 % 250 / 250 Sodium Chloride 250 ML @ 166.67 mls/hr IVPB Q12H [facility]EROZ Rx#: [id number] Oral 360 / 360 240 / 240 Output: Urine 1000 / 1000 Other: Meal Lunch Dinner Percent of Meal Consumed 100% 100% Blood Glucose* 205 217 174 Incision: clean and dry - Labs CBC & BMP: 05/25/18 11:08 05/25/18 11:08 Labs: Abnormal lab results Hgb 11.2 g/dL (11.5-15.4) L 05/25/18 11:08 Hct 34.6 % (35.3-44.9) L 05/25/18 11:08 MCV 81.2 fL (83.0-100.0) L 05/25/18 11:08 MCH 26.3 pg (28.0-33.3) L 05/25/18 11:08 RDW 15.1 % (11.5-14.5) H 05/25/18 11:08 ESR 45 mm/hr (0-15) H 05/24/18 06:43 Glucose 214 mg/dL (70-105) H 05/25/18 11:08 POC Glucose 205 mg/dL (70-99) H 05/25/18 07:26 C-Reactive Protein 15 mg/L (Less than 10) H 05/24/18 06:43 Vancomycin Trough 15 mcg/mL (5-10) H 05/24/18 06:43 Consult Discharge Plan - Plan Referrals: Shoshana Davis MD [Primary Care Provider] -
[2018-05-25] MEDS: rOPINIRole 3 MG, rOPINIRole 2 MG PO SCH (21:10)
[2018-05-25] MEDS: Ziprasidone 80 MG CAPSULE PO SCH (21:10)
[2018-05-26 03:39] LABS: Basophils % 0.3 %; Eosinophils # 0.2 K/mcL (0.0-0.6); Eosinophils % 2.6 %; Hemoglobin 10.6 g/dL (11.5-15.4); Immature Granulocytes % 0.3 % (0-4); Lymphocytes # 2.2 K/mcL (0.6-4.6); Lymphocytes % 33.5 %; Mean Corpuscular HGB Conc 32.1 g/dL (31.6-35.5); Mean Corpuscular Hemoglobin 26.4 pg (28.0-33.3); Mean Corpuscular Volume 82.1 fL (83.0-100.0); Mean Platelet Volume 10.2 fL (9.4-12.4); Monocytes # 0.3 K/mcL (0.0-1.3); Monocytes % 4.8 %; Neutrophils # 3.9 K/mcL (1.6-8.9); Platelet Count 193 K/mcL (140-400); Red Blood Count 4.02 M/mcL (3.82-4.97); Red Cell Distribution Width 14.8 % (11.5-14.5); Segmented Neutrophils % 58.5 %
[2018-05-26 03:58] LABS: BUN/Creatinine Ratio 19 (6-26); Blood Urea Nitrogen 15 mg/dL (6-20); Calcium 8.8 mg/dL (8.6-10.3); Carbon Dioxide 24 mEq/L (23-29); Chloride 105 mEq/L (98-107); Glucose 251 mg/dL (70-105); Osmolality,Calculated 293 (280-300); Potassium 3.7 mEq/L (3.5-5.1); Sodium 137 mEq/L (136-145); eGFR For Non-African Americans > 60 (> 60)
[2018-05-26] MEDS: *HR* Heparin 5,000 UNIT/ML VIAL SQ SCH ×2 (05:58→16:56)
[2018-05-26] MEDS: Gabapentin 100 MG CAPSULE PO SCH ×3 (08:39→20:15)
[2018-05-26] MEDS: Famotidine 20 MG TABLET PO SCH ×2 (08:39→20:15)
[2018-05-26] MEDS: Loratadine 10 MG TABLET PO SCH (08:39)
[2018-05-26] MEDS: Lisinopril-HCTZ 20-12.5mg TABLET PO SCH (08:39)
[2018-05-26] MEDS: Insulin LISPRO 300 UNITS/3 ML VIAL SQ SCH ×4 (08:40→20:12)
[2018-05-26] MEDS: Cefepime HCl 2,000 MG in 0.9 % Sodium Chloride Mini Bag 100 ML IVPB SCH ×2 (08:40→16:56)
[2018-05-26] MEDS: Fluticasone Propionate Nasal 50 MCG/SPRAY BOTTLE NS SCH (08:42)
[2018-05-26] MEDS: *HR* OxyCODONE Immed Rel 5 MG TABLET PO PRN ×3 (08:55→20:14)
--- NOTE | 2018-05-26 10:13 | Infectious Disease Progress No ---
ID Progress Note Date of Encounter: 05/26/18 Time of Encounter: 09:45 - Subjective Subjective: Patient seen and examined at bedside this morning. She continues to complain of pain at the stump, stating that her Neurontin is not helping. She does admit to decrease in the amount of swelling around the distal aspect of the stump since admission. Denies any discharge from the area. Denies any fevers, chills overnight. - Objective CBC & Chem 7: 05/28/18 03:17 05/28/18 03:17 - Exam Vitals: Temp Pulse Resp BP Pulse Ox 97.8 F 61 17 102/63 98 05/26/18 07:53 05/26/18 07:53 05/26/18 07:53 05/26/18 07:53 05/26/18 07:53 Exam: General: resting comfortably out of bed in chair, no acute distress HEENT: head is atraumatic and normocephalic, pupils are equal, EOMI, mucosa moist, external ears and nares are patent Neck: no JVD, trachea midline Chest: symmetrical chest wall rise, no tenderness to palpation Cardiovascular: regular rate and rhythm, no murmurs Respiratory: clear to auscultation bilaterally, no rales ronchi or wheezing Abdomen: soft, nontender, no guarding or rigidity Extremities: Left BKA, small half centimeter ulceration noted at the distal inferior aspect of her stump. Unable to express purulent material or fluid on palpation. Tenderness to palpation of the distal aspect of the stump. No overlying erythema or edema noted. Neurological: no obvious focal neurological deficits Psych: pleasant, appropriate mood and affect - Assessment and Plan (1) Osteomyelitis Current Visit: Yes Status: Acute -Osteomyelitis and abscess formation secondary to infected below knee stump -Patient previously failed outpatient treatment with clindamycin -Has had increasing purulent discharge from a chronic nonhealing ulcer of the stump -On admission she was not septic, but lactic acid, ESR, and CRP were elevated -Imaging studies revealed osteomyelitis and a large fluid collection at the stump -Started on empiric vancomycin and cefepime -Orthopedic surgery was consulted and the fluid collection was drained and sent for culture -Fluid culture is growing gram negative wong, blood cultures NGTD Plan: -Currently on day 5 of cefepime -Vancomycin discontinued -05/23: Abscess culture growing serratia marcescens -Continue IV cefepime 2g Q8H -Per orthopedic surgery consultation, patient may require surgical intervention and possible AKA Qualifiers: Osteomyelitis type: acute hematogenous Osteomyelitis location: tibia Laterality: left Qualified Code(s): M86.062 - Acute hematogenous osteomyelitis, left tibia and fibula SNOMED Code(s): 46921638 (2) Abscess Current Visit: Yes Status: Acute Abscess drained by orthopedic surgery Culture growing serratia marcescens On cefepime currently Afebrile, vital signs stable, no leukocytosis Plan: -Continue cefepime SNOMED Code(s): 829016135 (3) Type 2 diabetes mellitus Current Visit: Yes Status: Chronic Qualifiers: Diabetes mellitus group home insulin use: with long winder tender use Diabetes mellitus complication status: with skin complications Diabetes mellitus complication detail: with other skin complication Qualified Code(s): E11.628 - Type 2 diabetes mellitus with other skin complications; Z79.4 - correction (current) use of insulin SNOMED Code(s): 14291582 Consult Discharge Plan - Plan Referrals: Shoshana Davis MD [Primary Care Provider] - - Attending Attestation I have personally performed a face to face evaluation on this patient. I have reviewed and agree with the care plan. History and Exam by me shows: Assessment and plan: 1.Osteomyelitis of left BKA causative organism gram-negative wong 5 4 times a day pending 2.Abscess left stump status post I&D 3.Diabetes mellitus type 2 Commendations. DC vancomycin Continue cefepime We will Repeat asked to see what the plan is surgical versus nonsurgical Monitor labs and for drug toxicity Duration of treatment depends on clinical picture
[2018-05-26] MEDS: traMADol 50 MG TABLET PO PRN (11:27)
--- NOTE | 2018-05-26 13:12 | Internal Med Progress Note ---
<Abida Rajan - Last Filed: 05/26/18 13:51> Hospitalist Progress Note - Encounter Date of Encounter: 05/26/18 Time of Encounter: 09:30 - Subjective Interval History: Mrs. Kirby is a 57Yo F with a h/o DM, fibromyalgia, and left lower leg amputation who presented for concerns of infection of the left lower leg at the stump. Pt was found to have osteomyelitis involving the stump on Xray. Today pt continues to complain of pain and tenderness at the stump as well as a burning sensation which has improved. Pt states she still has numbness and tingling in her lower legs bilaterally but says this has improved some with the gabapentin. Pt denies fever, chills, dizziness, H/A, chest pain, shortness of breath, palpitations, NVD, or constipation. - Exam Vitals: Temp Pulse Resp BP Pulse Ox 98.1 F 62 17 97/59 97 05/26/18 12:27 05/26/18 12:27 05/26/18 12:27 05/26/18 12:27 05/26/18 12:27 Exam: General: AAOX3, NAD, resting comfortably in bed Cardiovascular: RRR, normal s1 and s2, no murmurs Respiratory: CTAB, no wheezing, no rhonchi Abdomen: Normal bowel sounds X4, non-tender to palpation, soft, non-distended Ext: normal sensation to light touch of LE bilaterally, normal strength of LE bilaterally, tenderness to palpation of the distal end of the left leg stump. Skin: warm, dry and intact - Assessment and Plan (1) Osteomyelitis Current Visit: Yes Status: Acute Assessment and Plan: Pt had a below the knee amputation of the left leg about 2 years ago with multiple revisions. Pt intially presented to the ED with the complaint that her distal left lower leg stump was infected. She states there was bone protruding through the skin and drainage coming from the wound. She states there were plans for another revision. Dr. Veras currently manages her wound care. 05/21 WBC was 9.9 05/21 Lactic acid initially was 2.9 but decreased to 2.1, likely 2/2 1 L fluid bolus that was administered in the ED 05/21 Xray of tibia and fibula of left leg showed concerns for osteomyelitis involving the stump and a soft tissue track extending from the lateral skin. 05/21 Blood Cx pending 05/23 Cyst Cx positive for serratia marcescens 05/23 Lower Extremity MRI showed large rim enhancing fluid collection at the stump measuring 2.1 x 3.8 x 2.0 cm most compatible with large abscess with surrounding subcutaneous in edema and post contrast enhancement consistent with cellulitis. Patient was also found to have osteomyelitis of the distal stump with patchy marrow edema and enhancement extending to the level of the proximal metaphysis highly suspicious for proximal osteomyelitis. Edema and subchondral signal change of the medial tibial plateau and to a lesser extent the anterior aspect of the medial femoral condyle. Findings may reflect reactive/mechanical marrow edema 05/24 CRP elevated at 15 WBC today is 6.6 Today pt states that she is continuing to experience a burning sensation of the left lower leg just below the knee which is better than before. She still experiences numbness and tingling in her LE B/L which has improved some with gabapentin. She states the distal end of the left lower leg stump is tender. Sensation to light touch is intact to LE bilaterally. Pt is currently afebrile at 98.1, pulse rate 61-65, RR 17-18. Pt does not meet SIRS criteria. Patient was evaluated by orthopedic surgery, who performed aspiration of tibial abscess which grew serratia as above, pt may possibly require AKA per ortho Plan: -Continue IV cefepime day 5 per ID -Repeat and trend daily CBC -Blood Cx pending -Pain control with tylenol, tramadol, oxycodone, and mobic -Further recommendations per ID and ortho -Possible AKA per ortho -Continue to monitor (2) Leg pain Current Visit: Yes Status: Acute Assessment and Plan: 05/25 Patient complained of significant lower extremity pain, which she rated as 9/10 in intensity. She has been reporting little improvement with oxycodone 10 mg. Patient reports that she takes "whatever she can get" for pain at home, and admits to procuring pain medication from multiple sources. She states that she normally takes Percocet at home, with single doses ranging from 10-30 mg at one time. She states that she has been prescribed tramadol; however, she says that this does not help her pain.Patient describes her pain as "burning" in character, and denies having tried medications for neuropathic pain; however, she is agreeable to a trial of neurontin. Today pt states she is still having a burning sensation in her BKA and continued numbness/tingling in LE bilaterally that she states has improved some since starting gabapentin. Plan: - Continue analgesics PRN. - Continue gabapentin 100mg TID. 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 Plan: -Continue corrective low dose insulin -Accuchecks ACHS -Diabetic Diet (4) Hypertension Current Visit: Yes Status: Chronic Assessment and Plan: Pt has a h/o HTN, BP today is 102-119/59-71. Blood pressure is stable and pt denies any chest pain, palpitations, or H/A. Plan: -continue with home medications -continue to monitor (5) History of ND (myocardial infarction) Current Visit: Yes Status: Acute Assessment and Plan: Pt has a h/o of previous ND, today she denies chest pain, SOB, nausea or palpitations (6) DVT prophylaxis Current Visit: Yes Status: Acute Assessment and Plan: Plan: -Heparin SQ - Time Spent with Patient Total time spent is greater than 50% in coordination of care (as documented) at patient's floor/unit and/or counseling patient: Internal Medicine: Result - Labs CBC & Chem 7: 05/26/18 02:48 05/26/18 02:48 Labs: Short CBC 05/26/18 Range/Units 02:48 WBC 6.6 (4.3-11.1) K/mcL Hgb 10.6 L (11.5-15.4) g/dL Hct 33.0 L (35.3-44.9) % Plt Count 193 (140-400) K/mcL Neutrophils # 3.9 (1.6-8.9) K/mcL BMP 05/26/18 02:48 Sodium 137 Potassium 3.7 Chloride 105 Carbon Dioxide 24 BUN 15 Creatinine 0.77 Glucose 251 H Calcium 8.8 Consult Discharge Plan - Plan Referrals: Shoshana Davis MD [Primary Care Provider] - <Ga Alexandra - Last Filed: 05/26/18 17:36> Hospitalist Progress Note - Encounter Date of Encounter: 05/26/18 - Exam Vitals: Temp Pulse Resp BP Pulse Ox 98.4 F 66 16 110/56 98 05/26/18 15:14 05/26/18 15:14 05/26/18 15:14 05/26/18 15:14 05/26/18 15:14 - Assessment and Plan (1) Osteomyelitis Current Visit: Yes Status: Acute (2) Type 2 diabetes mellitus Current Visit: Yes Status: Chronic (3) Hypertension Current Visit: Yes Status: Chronic (4) DVT prophylaxis Current Visit: Yes Status: Acute (5) CAD (coronary artery disease) Current Visit: Yes Status: Chronic (6) Leg pain Current Visit: Yes Status: Acute - Time Spent with Patient Total time spent is greater than 50% in coordination of care (as documented) at patient's floor/unit and/or counseling patient: Internal Medicine: Result - Labs CBC & Chem 7: 05/26/18 02:48 05/26/18 02:48 Labs: Short CBC 05/26/18 Range/Units 02:48 WBC 6.6 (4.3-11.1) K/mcL Hgb 10.6 L (11.5-15.4) g/dL Hct 33.0 L (35.3-44.9) % Plt Count 193 (140-400) K/mcL Neutrophils # 3.9 (1.6-8.9) K/mcL BMP 05/26/18 02:48 Sodium 137 Potassium 3.7 Chloride 105 Carbon Dioxide 24 BUN 15 Creatinine 0.77 Glucose 251 H Calcium 8.8 - Attending Attestation The history, physical exam, and medical decision making was performed by the medical student either while I was physically present and actively involved or I personally re-performed the exam and medical decision making. I have verified the accuracy of the medical student's documentation with regards to the history, physical exam findings, and medical decision making on 05/26/18. Ms Kirby is currently admitted for OM and abscess L BKA. She remains moderate to high risk due to potential for worsening clinical status. Ms Kirby is resting at this time. Pain is OK. She thinks that the neurontin makes her BP drop. No CP or SOB. Exam Alert comfortable in chair. Mucus membranes dry Heart reg and not tachy Abd nontender No drainage I/P 1. OM L BKA - serratia marcesans. On IV abx 2. Monitor BP with Neurontin. May need to switch to Lyrica Further diagnoses and plan as above. <MohiniAbida M - Last Filed: 05/26/18 13:51> (1) Osteomyelitis Qualifiers: Osteomyelitis type: acute hematogenous Osteomyelitis location: tibia Laterality: left Qualified Code(s): M86.062 - Acute hematogenous osteomyelitis, left tibia and fibula (2) Leg pain Qualifiers: Laterality: left Qualified Code(s): M79.605 - Pain in left leg (3) Type 2 diabetes mellitus Qualifiers: Diabetes mellitus assistant terminal manager insulin use: with assistant terminal manager use Diabetes mellitus complication status: with skin complications Diabetes mellitus complication detail: with other skin complication Qualified Code(s): E11.628 - Type 2 d iabetes mellitus with other skin complications; Z79.4 - assistant terminal manager (current) use of insulin (4) Hypertension Qualifiers: Hypertension type: essential hypertension Qualified Code(s): I10 - Essential (primary) hypertension <Ga Alexandra A - Last Filed: 05/26/18 17:36> (1) Osteomyelitis Qualifiers: Osteomyelitis type: acute hematogenous Osteomyelitis location: tibia Laterality: left Qualified Code(s): M86.062 - Acute hematogenous osteomyelitis, left tibia and fibula (2) Type 2 diabetes mellitus Qualifiers: Diabetes mellitus chcf insulin use: with chcf use Diabetes mellitus complication status: with skin complications Diabetes mellitus complication detail: with other skin complication Qualified Code(s): E11.628 - Type 2 diabetes mellitus with other skin complications; Z79.4 - assistant terminal manager (current) use of insulin (3) Hypertension Qualifiers: Hypertension type: essential hypertension Qualified Code(s): I10 - Essential (primary) hypertension (5) CAD (coronary artery disease) Qualifiers: Coronary Disease-Associated Artery/Lesion type: [place] artery [place] vs. transplanted heart: [place] heart Associated angina: without angina Qualified Code(s): I25.10 - Atherosclerotic heart disease of [place] coronary artery without angina pectoris (6) Leg pain Qualifiers: Laterality: left Qualified Code(s): M79.605 - Pain in left leg
[2018-05-26] MEDS: Ziprasidone 80 MG CAPSULE PO SCH (20:15)
[2018-05-26] MEDS: rOPINIRole 3 MG, rOPINIRole 2 MG PO SCH (20:15)
--- NOTE | 2018-05-26 21:42 | Orthopedics Progress Note ---
Date of Encounter: 05/26/18 Time of Encounter: 21:38 Subjective Principal diagnosis: Left BKA infection Interval history: 05/23/2018. Patient states the left BKA is feeling better. Less swelling and less pain. Denies chills fevers etc. Vital signs are stable. Patient is afebrile. Stump appears stable with a cystic area distally over the stump. This is over the tibial. No evidence of drainage. No significant swelling about the knee. MRI of the BKA was reviewed. There is fluid consistent with the clinical appearance. There are marked changes within the tibia at the level of the amputation site. Findings are consistent with osteomyelitis of the tibia proper. There are some subchondral marrow edema changes seen in the medial tibial plateau. Unclear if these are related to arthritis or an infectious process. White blood cell count remains normal. Impression: Suspected osteomyelitis left BKA stump. Recommendation: Had an extremely long discussion with the patient regarding the history of the amputation as well as the treatment delivered thus far. 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 It appears that she did well until 6 or 8 months ago when she had a revision of the BKA due to bony overgrowth. It does not appear that antibiotics were utilized at that time. The presence of the bone cement in the distal tibia is puzzling in that light. The patient states that she is having problems with fluid and swelling for probably the past 2 months. She states that beginning of the complaints she was on antibiotics but has been off antibiotics for probably a month. She has been on IV antibiotics for 2 days now with improvement but persistent swelling in the stump tip. I discussed with the patient and I suspect she has several options and none of these are urgent as she is not septic Andrei dealing with a draining wound. Could continue to treat her slowly with IV antibiotics I do not feel that this is going to try to eradicate the problem and we do not have a organism. The other option would be to "clean up the infection with a potential revision of the BKA, I discussed with the patient that this is very unpredictable and could not guarantee her success. The potentially more definitive treatment would be proceeding to AKA with the difficulty in ambulating with an AKA prosthesis. After much discussion we elected to proceed with an aspiration of the distal tibia. Informed consent was obtained and utilizing a Betadine prep the cystic area was entered and aspirated of approximately 15 mL of a cloudy pink thick fluid. Cultures were obtained. Discussed with the patient that information gathered from this culture could help in decision making. Also discussed that this may not provide an answer as she has been on antibiotics for a period of time and the culture results may be skewed. Other option would be to have additional input, probably from infectious disease to get an opinion as to further treatment. 05/24/2018. Patient appears very comfortable. Has decided she would like to proceed with an above-knee amputation to "eliminate the infection" Vital signs are stable. Patient is afebrile. Stump is clean and dry. No drainage. Minimal edema. Sensitive to touch and palpation. Hemoglobin is stable at 11. Normal white count. Sedimentation rate has dropped to 45 from 62. CRP has dropped from 16 to 15. Aspiration results are not available at thi s time. Impression: Infection left BKA stump, possible osteomyelitis. Recommendations: Discussed with the patient that I would not recommend any urgent surgery. Discussed with the patient that I would recommend an infectious disease consultation to get additional input and I would like to review her previous surgical procedures further. I am puzzled as to the presence of a bone plug in the distal tibia, question if this was a antibiotic impregnated plug that was inserted with the intention of having it removed. I would also wait until we have some definition of the organism we are currently treating. Discussed with the patient that the culture results may be negative due to her antibiotic use. 05/25/2018. Patient states the pain is unchanged. Denies any drainage. States she was started on Neurontin. Vital signs are stable. Patient is afebrile. White blood cell count is normal. Hemoglobin stable. Stump is improved. Much less edema. No drainage. Aspirate cultures show a preliminary a gram-negative wong. Impression: Left BKA stump infection, suspected osteomyelitis. Preliminary cultures revealed gram-negative wong. Recommendation: Appreciate infectious disease input. Will await final culture results before deciding on decision in regards to surgical intervention. Discussed with the patient a gram-negative rods extremely difficult to eradicate from bone and the patient may require AKA for more definitive treatment without an absolute guarantee that the infection has been eradicated. Patient understands and agrees with care as outlined. 05/26/2018. Patient continues to complain of left BKA stump pain. States that gabapentin is giving her little relief. Vital signs are stable. Patient is afebrile. Stump looks excellent with no evidence of drainage. No erythema induration or edema. Question the presence of fluid in the distal stump. Culture has grown Serratia. Blood cell count has been normal. Impression, left BKA stump infection. Recommendations. Had a long discussion with the patient regarding the potential treatment options available for her. Discussed with her that the AKA could not guarantee her that she would not have further problems and putting crease her ambulation difficulties and require much more energy expenditure. Discussed that still waiting operative reports from [facility] in regards to the treatment rendered thus far. Seeking input from infectious disease if they feel that this infection can be treated without further loss of tissue. Objective Vital signs: Vital Signs Temp Pulse Resp BP Pulse Ox 05/26/18 20:23 96 05/26/18 19:39 98.9 F 69 17 115/67 96 05/26/18 15:14 98.4 F 66 16 110/56 98 05/26/18 12:27 98.1 F 62 17 97/59 97 05/26/18 07:53 97.8 F 61 17 102/63 98 05/26/18 03:44 98.2 F 65 18 119/71 94 05/25/18 23:40 99.0 F 117 19 112/67 93 Intake and Output 05/26/18 05/26/18 05/26/18 07:59 15:59 23:59 Intake Total 100 / 100 580 / 580 240 / 240 Balance 100 / 100 580 / 580 240 / 240 Intake: IV Fluids 100 / 100 100 / 100 Maxipime 2,000 MG In 0.9 % 100 / 100 100 / 100 Sodium Chloride (Mini-Bag +) 100 ML @ 200 mls/hr IVPB Q8HR [facility] Rx#:[id number] Oral 480 / 480 240 / 240 Other: Meal Lunch pudding Percent of Meal Consumed 100% 100% Blood Glucose* 161 191 201 Incision: clean and dry - Labs CBC & BMP: 05/26/18 02:48 05/26/18 02:48 Labs: Abnormal lab results Hgb 10.6 g/dL (11.5-15.4) L 05/26/18 02:48 Hct 33.0 % (35.3-44.9) L 05/26/18 02:48 MCV 82.1 fL (83.0-100.0) L 05/26/18 02:48 MCH 26.4 pg (28.0-33.3) L 05/26/18 02:48 RDW 14.8 % (11.5-14.5) H 05/26/18 02:48 ESR 45 mm/hr (0-15) H 05/24/18 06:43 Glucose 251 mg/dL (70-105) H 05/26/18 02:48 POC Glucose 201 mg/dL (70-99) H 05/26/18 20:00 C-Reactive Protein 15 mg/L (Less than 10) H 05/24/18 06:43 Vancomycin Trough 14 mcg/mL (5-10) H 05/25/18 20:38 Consult Discharge Plan - Plan Referrals: Shoshana Davis MD [Primary Care Provider] -
[2018-05-27] MEDS: Cefepime HCl 2,000 MG in 0.9 % Sodium Chloride Mini Bag 100 ML IVPB SCH ×2 (00:01→07:54)
[2018-05-27] MEDS: *HR* OxyCODONE Immed Rel 5 MG TABLET PO PRN ×5 (02:20→22:26)
[2018-05-27] MEDS: *HR* Heparin 5,000 UNIT/ML VIAL SQ SCH ×2 (06:19→16:50)
[2018-05-27 07:47] LABS: Basophils % 0.3 %; Eosinophils # 0.2 K/mcL (0.0-0.6); Eosinophils % 2.5 %; Hematocrit 34.7 % (35.3-44.9); Immature Granulocytes % 0.5 % (0-4); Lymphocytes # 1.9 K/mcL (0.6-4.6); Lymphocytes % 32.3 %; Mean Corpuscular HGB Conc 31.7 g/dL (31.6-35.5); Mean Platelet Volume 10.1 fL (9.4-12.4); Monocytes # 0.4 K/mcL (0.0-1.3); Monocytes % 6.8 %; Neutrophils # 3.5 K/mcL (1.6-8.9); Platelet Count 199 K/mcL (140-400); Red Blood Count 4.23 M/mcL (3.82-4.97); Red Cell Distribution Width 15.1 % (11.5-14.5); Segmented Neutrophils % 57.6 %
[2018-05-27] MEDS: Gabapentin 100 MG CAPSULE PO SCH (07:53)
[2018-05-27] MEDS: Famotidine 20 MG TABLET PO SCH ×2 (07:54→21:08)
[2018-05-27] MEDS: Lisinopril-HCTZ 20-12.5mg TABLET PO SCH (07:54)
[2018-05-27] MEDS: Loratadine 10 MG TABLET PO SCH (07:54)
[2018-05-27] MEDS: Fluticasone Propionate Nasal 50 MCG/SPRAY BOTTLE NS SCH (07:55)
[2018-05-27] MEDS: Insulin LISPRO 300 UNITS/3 ML VIAL SQ SCH ×4 (08:00→23:35)
[2018-05-27 08:08] LABS: BUN/Creatinine Ratio 21 (6-26); Blood Urea Nitrogen 19 mg/dL (6-20); Calcium 9.3 mg/dL (8.6-10.3); Carbon Dioxide 27 mEq/L (23-29); Chloride 105 mEq/L (98-107); Glucose 299 mg/dL (70-105); Osmolality,Calculated 301 (280-300); Potassium 4.1 mEq/L (3.5-5.1); Sodium 139 mEq/L (136-145); eGFR For Non-African Americans > 60 (> 60)
--- NOTE | 2018-05-27 10:27 | Internal Med Progress Note ---
<Abida Rajan - Last Filed: 05/27/18 12:06> Hospitalist Progress Note - Encounter Date of Encounter: 05/27/18 Time of Encounter: 09:30 - Subjective Interval History: Mrs. Kirby is a 57Yo F with a h/o DM, fibromyalgia, and left BKA who presented for concerns of infection of the left lower leg at the stump. Pt was found to lovell ve osteomyelitis involving the stump on Xray. Today pt continues to complain of pain and tenderness at the stump as well as a burning sensation which has improved from yesterday. Patient's gabapentin was discontinued due to patient being symptomatic 2/2 a decrease in blood pressure. BP were reviewed and appeared to be decreased but were within appropriate limits. Today pt is hemodynamically stable and states she feels much better than yesterday and denies fever, chills, dizziness, H/A, numbness/tingling of her LE bilaterally, weakness, chest pain, shortness of breath, palpitations, NVD, or constipation. - Exam Vitals: Temp Pulse Resp BP Pulse Ox 98.7 F 64 18 101/61 96 05/27/18 07:12 05/27/18 07:12 05/27/18 07:12 05/27/18 07:12 05/27/18 08:00 Exam: General: AAOX3, NAD, resting comfortably in bed Cardiovascular: RRR, normal s1 and s2, no murmurs Respiratory: CTAB, no wheezing, no rhonchi Abdomen: Normal bowel sounds X4, non-tender to palpation, soft, non-distended Ext: normal sensation to light touch of LE bilaterally, normal strength of LE bilaterally, tenderness to palpation of the distal end of the left leg stump, no discharge or drainage. Skin: warm, dry and intact - Assessment and Plan (1) Osteomyelitis Current Visit: Yes Status: Acute Assessment and Plan: Pt had a below the knee amputation of the left leg about 2 years ago with multiple revisions. Pt intially presented to the ED with the complaint that her distal left lower leg stump was infected. She states there was bone protruding through the skin and drainage coming from the wound. She states there were plans for another revision. Dr. Veras currently manages her wound care. 05/21 WBC was 9.9 05/21 Lactic acid initially was 2.9 but decreased to 2.1, likely 2/2 1 L fluid bolus that was administered in the ED 05/21 Xray of tibia and fibula of left leg showed concerns for osteomyelitis involving the stump and a soft tissue track extending from the lateral skin. 05/21 Blood Cx pending 05/23 Cyst Cx positive for serratia marcescens 05/23 Lower Extremity MRI showed large rim enhancing fluid collection at the stump measuring 2.1 x 3.8 x 2.0 cm most compatible with large abscess with surrounding subcutaneous in edema and post contrast enhancement consistent with cellulitis. Patient was also found to have osteomyelitis of the distal stump with patchy marrow edema and enhancement extending to the level of the proximal metaphysis highly suspicious for proximal osteomyelitis. Edema and subchondral signal change of the medial tibial plateau and to a lesser extent the anterior aspect of the medial femoral condyle. Findings may reflect reactive/mechanical marrow edema 05/24 CRP elevated at 15 WBC today is 6.6 Today pt states that she is continuing to experience a burning sensation of the left lower leg just below the knee which is better than before. She still experiences numbness and tingling in her LE B/L which has improved some with gabapentin. She states the distal end of the left lower leg stump is tender. Sensation to light touch is intact to LE bilaterally. Pt is currently afebrile at 98.1, pulse rate 61-65, RR 17-18. Pt does not meet SIRS criteria. Patient was evaluated by orthopedic surgery, who performed aspiration of tibial abscess which grew serratia as above, pt may possibly require AKA per ortho Plan: -Continue IV cefepime day 6 for now, will switch to rocephin 2g daily per ID -recommend AKA per ID -Repeat and trend daily CBC -Blood Cx pending -Pain control with tylenol, tramadol, oxycodone, and mobic -Further recommendations per ID and ortho -Continue to monitor (2) Leg pain Current Visit: Yes Status: Acute Assessment and Plan: 05/25 Patient complained of significant lower extremity pain, which she rated as 9/10 in intensity. She has been reporting little improvement with oxycodone 10 mg. Patient reports that she takes "whatever she can get" for pain at home, and admits to procuring pain medication from multiple sources. She states that she normally takes Percocet at home, with single doses ranging from 10-30 mg at one time. She states that she has been prescribed tramadol; however, she says that this does not help her pain.Patient describes her pain as "burning" in character, and denies having tried medications for neuropathic pain. Patient's gabapentin was discontinued due to patient being symptomatic 2/2 a decrease in blood pressure. BP were reviewed and appeared to be decreased but were within appropriate limits. Today pt is hemodynamically stable and states she is still having a burning sensation in her left BKA however this has improved. She no longer admits to numbness/tingling of her LE bilaterally. Plan: - Continue analgesics PRN. - increase oxycodone to 12.5mg - D/C gabapentin and start lyrica PO 25mg BID (3) Type 2 diabetes mellitus Current Visit: Yes Status: Chronic Assessment and Plan: Pt has a h/o DM with intermediate frame tender use of insulin, her blood glucose yesterday was 251, today was 299. Plan: -Increase to corrective medium dose insulin -start basal insulin (levemir) 10units -Accuchecks ACHS -Diabetic Diet (4) Hypertension Current Visit: Yes Status: Chronic Assessment and Plan: Pt has a h/o HTN, BP today is 101-105/61. Blood pressure is stable and pt denies any chest pain, palpitations, or H/A. Plan: -continue with home medications -continue to monitor (5) History of [place] (myocardial infarction) Current Visit: Yes Status: Acute Assessment and Plan: Pt has a h/o of previous [place], today she denies chest pain, SOB, nausea or palpitations (6) DVT prophylaxis Current Visit: Yes Status: Acute Assessment and Plan: Plan: -Heparin SQ - Time Spent with Patient Total time spent is greater than 50% in coordination of care (as documented) at patient's floor/unit and/or counseling patient: Internal Medicine: Result - Labs CBC & Chem 7: 05/27/18 07:16 05/27/18 07:16 Labs: Short CBC 05/27/18 Range/Units 07:16 WBC 6.0 (4.3-11.1) K/mcL Hgb 11.0 L (11.5-15.4) g/dL Hct 34.7 L (35.3-44.9) % Plt Count 199 (140-400) K/mcL Neutrophils # 3.5 (1.6-8.9) K/mcL BMP 05/27/18 07:16 Sodium 139 Potassium 4.1 Chloride 105 Carbon Dioxide 27 BUN 19 Creatinine 0.89 Glucose 299 H Calcium 9.3 Consult Discharge Plan - Plan Referrals: Shoshana Davis MD [Primary Care Provider] - <Ga Alexandra - Last Filed: 05/27/18 14:07> Hospitalist Progress Note - Encounter Date of Encounter: 05/27/18 - Exam Vitals: Temp Pulse Resp BP Pulse Ox 97.9 F 72 17 105/61 96 05/27/18 10:26 05/27/18 10:26 05/27/18 10:26 05/27/18 10:26 05/27/18 10:26 - Assessment and Plan (1) Osteomyelitis Current Visit: Yes Status: Acute (2) Type 2 diabetes mellitus Current Visit: Yes Status: Chronic (3) Hypertension Current Visit: Yes Status: Chronic (4) DVT prophylaxis Current Visit: Yes Status: Acute (5) CAD (coronary artery disease) Current Visit: Yes Status: Chronic (6) Leg pain Current Visit: Yes Status: Acute - Time Spent with Patient Total time spent is greater than 50% in coordination of care (as documented) at patient's floor/unit and/or counseling patient: Internal Medicine: Result - Labs CBC & Chem 7: 05/27/18 07:16 05/27/18 07:16 Labs: Short CBC 05/27/18 Range/Units 07:16 WBC 6.0 (4.3-11.1) K/mcL Hgb 11.0 L (11.5-15.4) g/dL Hct 34.7 L (35.3-44.9) % Plt Count 199 (140-400) K/mcL Neutrophils # 3.5 (1.6-8.9) K/mcL BMP 05/27/18 07:16 Sodium 139 Potassium 4.1 Chloride 105 Carbon Dioxide 27 BUN 19 Creatinine 0.89 Glucose 299 H Calcium 9.3 - Attending Attestation The history, physical exam, and medical decision making was performed by the medical student either while I was physically present and actively involved or I personally re-performed the exam and medical decision making. I have verified the accuracy of the medical student's documentation with regards to the history, physical exam findings, and medical decision making on 05/27/18. Ms Kirby is currently admitted for OM and abscess of L BKA stump. She remains moderate to high risk due to potential for worsening clinical status. Ms Kirby feels OK. No fever or chills. No CP or SOB. Pain is still an issue. Neurontin makes her BP drop. Exam Alert Comfortable at this time Normocephalic Mucus membranes dry Heart not tachy Lungs clear Abd nontender No change in leg Moves all extremities Pulses palpable I/P 1. OM/abscess L BKA stump - Serratia marcesans. On IV Ceftriaxone 2. DM 3. Pain - change to Lyrica due to bp dropping with Neurontin Further diagnoses and plan as above. <Abida Rajan - Last Filed: 05/27/18 12:06> (1) Osteomyelitis Qualifiers: Osteomyelitis type: acute hematogenous Osteomyelitis location: tibia Laterality: left Qualified Code(s): M86.062 - Acute hematogenous osteomyelitis, left tibia and fibula (2) Leg pain Qualifiers: Laterality: left Qualified Code(s): M79.605 - Pain in left leg (3) Type 2 diabetes mellitus Qualifiers: Diabetes mellitus [facility] use: with [facility] use Diabetes mellitus complication status: with skin complications Diabetes mellitus complication detail: with other skin complication Qualified Code(s): E11.628 - Type 2 diabe jahaira mellitus with other skin complications; Z79.4 - shelter (current) use of insulin (4) Hypertension Qualifiers: Hypertension type: essential hypertension Qualified Code(s): I10 - Essential (primary) hypertension <Ga Alexandra - Last Filed: 05/27/18 14:07> (1) Osteomyelitis Qualifiers: Osteomyelitis type: acute hematogenous Osteomyelitis location: tibia Laterality: left Qualified Code(s): M86.062 - Acute hematogenous osteomyelitis, left tibia and fibula (2) Type 2 diabetes mellitus Qualifiers: Diabetes mellitus [facility] insulin use: with [facility] use Diabetes mellitus complication status: with skin complications Diabetes mellitus complication detail: with other skin complication Qualified Code(s): E11.628 - Type 2 diabetes mellitus with other skin complications; Z79.4 - shelter (current) use of insulin (3) Hypertension Qualifiers: Hypertension type: essential hypertension Qualified Code(s): I10 - Essential (primary) hypertension (5) CAD (coronary artery disease) Qualifiers: Coronary Disease-Associated Artery/Lesion type: [place] artery [place] vs. transplanted heart: [place] heart Associated angina: without angina Qualified Code(s): I25.10 - Atherosclerotic heart disease of [place] coronary artery without angina pectoris (6) Leg pain Qualifiers: Laterality: left Qualified Code(s): M79.605 - Pain in left leg
--- NOTE | 2018-05-27 11:56 | Infectious Disease Progress No ---
ID Progress Note Date of Encounter: 05/27/18 Time of Encounter: 11:00 - Subjective Subjective: Patient seen and examined at bedside this morning. She is clinically unchanged from yesterday. States she has pain at the stump and that it is extending proximally. - Objective CBC & Chem 7: 05/28/18 03:17 05/28/18 03:17 - Exam Vitals: Temp Pulse Resp BP Pulse Ox 97.9 F 72 17 105/61 96 05/27/18 10:26 05/27/18 10:26 05/27/18 10:05/27/18 10:05/27/18 10:26 Exam: General: resting comfortably out of bed in chair, no acute distress HEENT: head is atraumatic and normocephalic, pupils are equal, EOMI, mucosa moist, external ears and nares are patent Neck: no JVD, trachea midline Chest: symmetrical chest wall rise, no tenderness to palpation Cardiovascular: regular rate and rhythm, no murmurs Respiratory: clear to auscultation bilaterally, no rales ronchi or wheezing Abdomen: soft, nontender, no guarding or rigidity Extremities: Left BKA, small half centimeter ulceration noted at the distal inferior aspect of her stump. Unable to express purulent material or fluid on palpation. Tenderness to palpation of the distal aspect of the stump. No overlying erythema or edema noted. Neurological: no obvious focal neurological deficits Psych: pleasant, appropriate mood and affect - Assessment and Plan (1) Osteomyelitis Current Visit: Yes Status: Acute -Osteomyelitis and abscess formation secondary to infected below knee stump -Patient previously failed outpatient treatment with clindamycin -Has had increasing purulent discharge from a chronic nonhealing ulcer of the stump -On admission she was not septic, but lactic acid, ESR, and CRP were elevated -Imaging studies revealed osteomyelitis and a large fluid collection at the stump -Started on empiric vancomycin and cefepime -vancomycin discontinued after cultures grew GNR -Orthopedic surgery was consulted and the fluid collection was drained and sent for culture -Fluid culture is growing gram negative wong, blood cultures NGTD Plan: -Currently on day 6 of cefepime -Will discontinue cefepime and switch to Rocephin IV 2g daily -Agree that IV antibiotics alone may not be sufficient for treating patient's osteomyelitis and an AKA may be required -Patient will require antibiotics after AKA Qualifiers: Osteomyelitis type: acute hematogenous Osteomyelitis location: tibia Laterality: left Qualified Code(s): M86.062 - Acute hematogenous osteomyelitis, left tibia and fibula SNOMED Code(s): 06253400 (2) Abscess Current Visit: Yes Status: Acute Drained by orthopedic surgery Switching antibiotics from cefepime 2g Q8H to Rocephin 2g daily SNOMED Code(s): 479136333 (3) Type 2 diabetes mellitus Current Visit: Yes Status: Chronic Qualifiers: Diabetes mellitus extermination supervisor insulin use: with residential use Diabetes mellitus complication status: with skin complications Diabetes mellitus complication detail: with other skin complication Qualified Code(s): E11.628 - Type 2 diabetes mellitus with other skin complications; Z79.4 - nursing home (current) use of insulin SNOMED Code(s): 08750641 Consult Discharge Plan - Plan Referrals: Shoshana Davis MD [Primary Care Provider] - - Attending Attestation I examined this patient and my medical decision-making was reviewed with the Resident Physician. I agree with the documented findings, disposition and treatment plan as described except to the extent set forth below. Assessment and plan: 1.Osteomyelitis of left BKA causative organism gram-negative wong 5 4 times a day pending 2.Abscess left stump status post I&D 3.Diabetes mellitus type 2 Commendations. DC cefepime Start Rocephin 2 g IV daily for hours Discussed with orthopedic team, they are still trying to get records from outside facility to see if they did do AKA versus debridement versus no surgical intervention at all.
[2018-05-27] MEDS: cefTRIAXone 2,000 MG in Water for inj. (sterile) 20 ML 20 ML IVP SCH (12:59)
[2018-05-27] MEDS: Pregabalin 25 MG CAPSULE PO SCH (21:08)
[2018-05-27] MEDS: rOPINIRole 3 MG, rOPINIRole 2 MG PO SCH (21:08)
[2018-05-27] MEDS: Ziprasidone 80 MG CAPSULE PO SCH (21:08)
[2018-05-27] MEDS: Insulin DETEMIR 100 UNIT/ML X5UNITS SQ SCH (21:08)
--- NOTE | 2018-05-27 21:26 | Orthopedics Progress Note ---
Date of Encounter: 05/27/18 Time of Encounter: 21:19 Subjective Principal diagnosis: Left BKA infection Interval history: 05/23/2018. Patient states the left BKA is feeling better. Less swelling and less pain. Denies chills fevers etc. Vital signs are stable. Patient is afebrile. Stump appears stable with a cystic area distally over the stump. This is over the tibial. No evidence of drainage. No significant swelling about the knee. MRI of the BKA was reviewed. There is fluid consistent with the clinical appearance. There are marked changes within the tibia at the level of the amputation site. Findings are consistent with osteomyelitis of the tibia proper. There are some subchondral marrow edema changes seen in the medial tibial plateau. Unclear if these are related to arthritis or an infectious process. White blood cell count remains normal. Impression: Suspected osteomyelitis left BKA stump. Recommendation: Had an extremely long discussion with the patient regarding the history of the amputation as well as the treatment delivered thus far. 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 It appears that she did well until 6 or 8 months ago when she had a revision of the BKA due to bony overgrowth. It does not appear that antibiotics were utilized at that time. The presence of the bone cement in the distal tibia is puzzling in that light. The patient states that she is having problems with fluid and swelling for probably the past 2 months. She states that beginning of the complaints she was on antibiotics but has been off antibiotics for probably a month. She has been on IV antibiotics for 2 days now with improvement but persistent swelling in the stump tip. I discussed with the patient and I suspect she has several options and none of these are urgent as she is not septic Andrei dealing with a draining wound. Could continue to treat her slowly with IV antibiotics I do not feel that this is going to try to eradicate the problem and we do not have a organism. The other option would be to "clean up the infection with a potential revision of the BKA, I discussed with the patient that this is very unpredictable and could not guarantee her success. The potentially more definitive treatment would be proceeding to AKA with the difficulty in ambulating with an AKA prosthesis. After much discussion we elected to proceed with an aspiration of the distal tibia. Informed consent was obtained and utilizing a Betadine prep the cystic area was entered and aspirated of approximately 15 mL of a cloudy pink thick fluid. Cultures were obtained. Discussed with the patient that information gathered from this culture could help in decision making. Also discussed that this may not provide an answer as she has been on antibiotics for a period of time and the culture results may be skewed. Other option would be to have additional input, probably from infectious disease to get an opinion as to further treatment. 05/24/2018. Patient appears very comfortable. Has decided she would like to proceed with an above-knee amputation to "eliminate the infection" Vital signs are stable. Patient is afebrile. Stump is clean and dry. No drainage. Minimal edema. Sensitive to touch and palpation. Hemoglobin is stable at 11. Normal white count. Sedimentation rate has dropped to 45 from 62. CRP has dropped from 16 to 15. Aspiration results are not available at thi s time. Impression: Infection left BKA stump, possible osteomyelitis. Recommendations: Discussed with the patient that I would not recommend any urgent surgery. Discussed with the patient that I would recommend an infectious disease consultation to get additional input and I would like to review her previous surgical procedures further. I am puzzled as to the presence of a bone plug in the distal tibia, question if this was a antibiotic impregnated plug that was inserted with the intention of having it removed. I would also wait until we have some definition of the organism we are currently treating. Discussed with the patient that the culture results may be negative due to her antibiotic use. 05/25/2018. Patient states the pain is unchanged. Denies any drainage. States she was started on Neurontin. Vital signs are stable. Patient is afebrile. White blood cell count is normal. Hemoglobin stable. Stump is improved. Much less edema. No drainage. Aspirate cultures show a preliminary a gram-negative owng. Impression: Left BKA stump infection, suspected osteomyelitis. Preliminary cultures revealed gram-negative wong. Recommendation: Appreciate infectious disease input. Will await final culture results before deciding on decision in regards to surgical intervention. Discussed with the patient a gram-negative rods extremely difficult to eradicate from bone and the patient may require AKA for more definitive treatment without an absolute guarantee that the infection has been eradicated. Patient understands and agrees with care as outlined. 05/26/2018. Patient continues to complain of left BKA stump pain. States that gabapentin is giving her little relief. Vital signs are stable. Patient is afebrile. Stump looks excellent with no evidence of drainage. No erythema induration or edema. Question the presence of fluid in the distal stump. Culture has grown Serratia. Blood cell count has been normal. Impression, left BKA stump infection. Recommendations. Had a long discussion with the patient regarding the potential treatment options available for her. Discussed with her that the AKA could not guarantee her that she would not have further problems and putting crease her ambulation difficulties and require much more energy expenditure. Discussed that still waiting operative reports from [place] in regards to the treatment rendered thus far. Seeking input from infectious disease if they feel that this infection can be treated without further loss of tissue. 05/27/2018. Patient continues to have left stump pain. No drainage. Vital signs remained stable. Patient is afebrile. White blood cell count remains normal. Platelet count normal. Hemoglobin stable at about 11 g. Left sugars continue to be high. Impression: Left BKA stump infection, probable osteomyelitis of tibia Recommendation: Had a long discussion again with the patient in regards to the treatment options available. Have not been able to successfully identify the exact surgical procedure and the treatment plan wench patient had a revision surgery of her BKA at [place]. I suspect she had a cement plug placed into the tibia with antibiotic impregnation to deliver high-dose antibiotics for a short period of time. Puzzled as to why this would remain. He currently is a foreign body and offers no treatment in regards to her current infection. The patient s poke with her prosthesis who recommended patient attempt to save the knee joint. I discussed with the patient that this is a viable option and would require at least one and possibly more surgeries. First step would be to debride the wound and removed the cement plug. Would probably consider placing absorbable antibiotic beads and utilize IV antibiotics for a minimum of 6 weeks. Patient is aware that this may not be curative and she may ultimately require an AKA. Surgery time is not going to be available tomorrow, the earliest would possibly be Friday or over the weekend. We will proceed when OR time is available. We will continue IV antibiotics as per infectious disease. Objective Vital signs: Vital Signs Temp Pulse Resp BP Pulse Ox 05/27/18 21:03 97.9 F 65 17 149/89 97 05/27/18 14:59 98.0 F 66 17 114/73 96 05/27/18 10:26 97.9 F 72 17 105/61 96 04/17/19 08:00 96 05/27/18 07:12 98.7 F 64 18 101/61 96 05/26/18 23:27 97.5 F L 59 17 96/64 96 Intake and Output 05/27/18 05/27/18 05/27/18 07:59 15:59 23:59 Intake Total 100 / 100 300 / 300 240 / 240 Output Total 500 / 500 Balance 100 / 100 -200 / -200 240 / 240 Intake: IV Fluids 100 / 100 100 / 100 Maxipime 2,000 MG In 0.9 % 100 / 100 100 / 100 Sodium Chloride (Mini-Bag +) 100 ML @ 200 mls/hr IVPB Q8HR FEROZ Rx#:[id number] Oral 200 / 200 240 / 240 Output: Urine 500 / 500 Other: Meal Dinner Percent of Meal Consumed 65% # Voids 1 Weight 85.5 kg Blood Glucose* 292 218 148 Patient Weight 05/27/18 23:59 Weight 85.5 kg Incision: clean and dry - Labs CBC & BMP: 05/27/18 07:16 05/27/18 07:16 Labs: Abnormal lab results Hgb 11.0 g/dL (11.5-15.4) L 05/27/18 07:16 Hct 34.7 % (35.3-44.9) L 05/27/18 07:16 MCV 82.0 fL (83.0-100.0) L 05/27/18 07:16 MCH 26.0 pg (28.0-33.3) L 05/27/18 07:16 RDW 15.1 % (11.5-14.5) H 05/27/18 07:16 ESR 45 mm/hr (0-15) H 05/24/18 06:43 Glucose 299 mg/dL (70-105) H 05/27/18 07:16 POC Glucose 148 mg/dL (70-99) H 05/27/18 20:37 Calculated Osmolality 301 (280-300) H 05/27/18 07:16 C-Reactive Protein 15 mg/L (Less than 10) H 05/24/18 06:43 Vancomycin Trough 14 mcg/mL (5-10) H 05/25/18 20:38 Consult Discharge Plan - Plan Referrals: Shoshana Davis MD [Primary Care Provider] -
[2018-05-28 03:36] LABS: Basophils % 0.4 %; Eosinophils # 0.2 K/mcL (0.0-0.6); Eosinophils % 2.5 %; Hematocrit 35.1 % (35.3-44.9); Hemoglobin 11.1 g/dL (11.5-15.4); Immature Granulocytes % 0.3 % (0-4); Lymphocytes # 2.5 K/mcL (0.6-4.6); Lymphocytes % 36.5 %; Mean Corpuscular HGB Conc 31.6 g/dL (31.6-35.5); Mean Corpuscular Hemoglobin 25.8 pg (28.0-33.3); Mean Corpuscular Volume 81.6 fL (83.0-100.0); Monocytes # 0.3 K/mcL (0.0-1.3); Monocytes % 4.7 %; Neutrophils # 3.8 K/mcL (1.6-8.9); Platelet Count 199 K/mcL (140-400); Red Cell Distribution Width 14.6 % (11.5-14.5); Segmented Neutrophils % 55.6 %
[2018-05-28 03:55] LABS: BUN/Creatinine Ratio 25 (6-26); Blood Urea Nitrogen 15 mg/dL (6-20); Calcium 9.1 mg/dL (8.6-10.3); Carbon Dioxide 28 mEq/L (23-29); Chloride 103 mEq/L (98-107); Glucose 201 mg/dL (70-105); Osmolality,Calculated 297 (280-300); Sodium 140 mEq/L (136-145); eGFR For Non-African Americans > 60 (> 60)
[2018-05-28] MEDS: *HR* Heparin 5,000 UNIT/ML VIAL SQ SCH ×2 (05:17→18:05)
[2018-05-28] MEDS: *HR* OxyCODONE Immed Rel 5 MG TABLET PO PRN ×3 (07:51→21:52)
--- NOTE | 2018-05-28 08:03 | Internal Med Progress Note ---
<Ga Alexandra - Last Filed: 05/28/18 17:48> Hospitalist Progress Note - Encounter Date of Encounter: 05/28/18 - Exam Vitals: Temp Pulse Resp BP Pulse Ox 98.4 F 64 16 94/57 96 05/28/18 11:00 05/28/18 11:00 05/28/18 11:00 05/28/18 11:00 05/28/18 11:00 - Assessment and Plan (1) Osteomyelitis Current Visit: Yes Status: Acute (2) Type 2 diabetes mellitus Current Visit: Yes Status: Chronic (3) Hypertension Current Visit: Yes Status: Chronic (4) DVT prophylaxis Current Visit: Yes Status: Acute (5) CAD (coronary artery disease) Current Visit: Yes Status: Chronic (6) Leg pain Current Visit: Yes Status: Acute - Time Spent with Patient Total time spent is greater than 50% in coordination of care (as documented) at patient's floor/unit and/or counseling patient: Internal Medicine: Result - Labs CBC & Chem 7: 05/28/18 03:17 05/28/18 03:17 Labs: Short CBC 05/28/18 Range/Units 03:17 WBC 6.9 (4.3-11.1) K/mcL Hgb 11.1 L (11.5-15.4) g/dL Hct 35.1 L (35.3-44.9) % Plt Count 199 (140-400) K/mcL Neutrophils # 3.8 (1.6-8.9) K/mcL BMP 05/28/18 03:17 Sodium 140 Potassium 4.0 Chloride 103 Carbon Dioxide 28 BUN 15 Creatinine 0.61 Glucose 201 H Calcium 9.1 Consult Discharge Plan - Plan Referrals: Shoshana Davis MD [Primary Care Provider] - - Attending Attestation I examined this patient and my medical decision-making was reviewed with the Resident Physician on 05/28/18. I agree with the documented findings, disposition and treatment plan as described except to the extent set forth below. Ms Kirby is currently admitted for OM/abscess L BKA stump. She remains moderate to high risk due to potential for worsening clinical status. Ms Kirby is feeling OK. No fever or chills. Lyrica helps pain. Awaiting on surgery plans. Exam Alert Comfortable Mucus membranes dry Heart not tachy No wheeze abd soft I/P 1. OM/abscess - on IV abx. Awaiting surgery plans Further diagnoses and plan as above. <Niki Dunne N - Last Filed: 05/28/18 19:59> Hospitalist Progress Note - Encounter Date of Encounter: 05/28/18 Time of Encounter: 08:03 - Subjective Interval History: Patient seen and evaluated at the bedside. She reports improvement in her left lower extremity pain, and states that she feels like the lyrica is helping. She denies any fevers, chills, erythema, or swelling of the lower extremity. She is awaiting stump debridement with Dr. Fernandez to likely be performed tomorrow. She denies any complaints or concerns at this time. - Exam Vitals: Temp Pulse Resp BP Pulse Ox 98.1 F 67 14 116/72 100 05/28/18 07:55 05/28/18 07:55 05/28/18 07:55 05/28/18 07:55 05/28/18 07:55 Exam: GENERAL: Well-developed, well-nourished adult female in no acute distress. HEENT: Atraumatic and normocephalic. CARDIOVASCULAR: Regular rate and rhythm. S1 and S2 present. No murmurs, gallops, or rubs. RESPIRATORY: Clear to auscultation bilaterally. Chest rises and falls symmetrically without accessory muscle use. GASTROINTESTINAL: Abdomen is soft, nontender, nondistended. EXTREMITIES: No clubbing, cyanosis, or edema. Left lower extremity is surgically absent below the knee, with clean dressings in place. SKIN: Warm, dry, and intact. NEUROLOGIC: Alert and oriented x3. Patient is cooperative with exam and answers questions appropriately. No apparent focal deficits. PSYCHIATRIC: Appropriate mood and affect. 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 Patient has had multiple revisions, and has reportedly been having trouble with this for the last several months, with wound care managed by Dr. Veras. Per review of ED documentation, patient reportedly had visible bone with wound drainage at the time of presentation. Initial laboratory studies demonstrated WBC WNL, elevated ESR of 62, and CRP of 16. Blood cultures were obtained, and patient was started on empiric antibiotic therapy with vancomycin and cefepime. X-ray performed on 4/11/19 demonstrated findings highly suspicious for osteomyelitis involving the stump with suggestion of soft tissues tract extending from the lateral skin. Subsequent MRI performed on 05/23/18 demonstrated large rim enhancing fluid collection at the stump measuring 2.1 x 3.8 x 2.0 cm most compatible with large abscess with surrounding subcutaneous in edema and post contrast enhancement consistent with cellulitis. Patient was also found to have osteomyelitis of the distal stump with patchy marrow edema and enhancement extending to the level of the proximal metaphysis highly suspicious for proximal osteomyelitis. Patient was evaluated by orthopedic surgery, who performed aspiration of tibial abscess. Fluid cultures are significant for growth of Serriata marcescens. Patient was started on ertapenem by infectious disease team; however, this was changed to rocephin yesterday in anticipation of discharge home with prolonged antibiotic therapy. Plan: - Continue rocephin per ID recommendation. - Repeat and trend daily CBC. - Plan for operative debridement tomorrow or Friday with Dr. Fernandez. - Further recommendations per ID and orthopedic surgery. (2) Leg pain Current Visit: Yes Status: Acute Assessment and Plan: Patient complains of significant lower extremity pain, which she currently rates as 9/10 in intensity. She has been reporting little improvement with oxycodone 10 mg. Patient reports that she takes "whatever she can get" for pain at home, and admits to procuring pain medication from multiple sources. She states that she normally takes Percocet at home, with single doses ranging from 10-30 mg at one time. She states that she has been prescribed tramadol; however, she says that this does not help her pain. Patient describes her pain as "burning" in character, and denies having tried medications for neuropathic pain. Patient did have decrease blood pressures with gabapentin, which was discontinued in favor of lyrica 25mg BID yesterday. Patient states that she feels like this is helping her pain; however, she was noted to have decreased BP with systolic in the 90s. Plan: - Continue lyrica 25mg BID; however, will space lyrica and opioid analgesics to minimize BP effect. - Continue analgesics PRN. (3) Type 2 diabetes mellitus Current Visit: Yes Status: Chronic Assessment and Plan: History of diabetes with long-term use of insulin. - Accuchecks and medium-dose SSI ACHS. (4) CAD (coronary artery disease) Current Visit: Yes Status: Chronic Assessment and Plan: - Continue home medications. (5) DVT prophylaxis Current Visit: Yes Status: Acute Assessment and Plan: - Heparin 5000units Q12H. - Time Spent with Patient Total time spent is greater than 50% in coordination of care (as documented) at patient's floor/unit and/or counseling patient: Internal Medicine: Result - Labs CBC & Chem 7: 05/28/18 03:17 05/28/18 03:17 Labs: Short CBC 05/28/18 Range/Units 03:17 WBC 6.9 (4.3-11.1) K/mcL Hgb 11.1 L (11.5-15.4) g/dL Hct 35.1 L (35.3-44.9) % Plt Count 199 (140-400) K/mcL Neutrophils # 3.8 (1.6-8.9) K/mcL BMP 05/27/18 05/28/18 07:16 03:17 Sodium 139 140 Potassium 4.1 4.0 Chloride 105 103 Carbon Dioxide 27 28 BUN 19 15 Creatinine 0.89 0.61 Glucose 299 H 201 H Calcium 9.3 9.1 <Ga Alexandra - Last Filed: 05/28/18 17:48> (1) Osteomyelitis Qualifiers: Osteomyelitis type: acute hematogenous Osteomyelitis location: tibia Laterality: left Qualified Code(s): M86.062 - Acute hematogenous osteomyelitis, left tibia and fibula (2) Type 2 diabetes mellitus Qualifiers: Diabetes mellitus group home insulin use: with group home use Diabetes mellitus complication status: with skin complications Diabetes mellitus complication detail: with other skin complication Qualified Code(s): E11.628 - Type 2 diabe jahaira mellitus with other skin complications; Z79.4 - jail (current) use of insulin (3) Hypertension Qualifiers: Hypertension type: essential hypertension Qualified Code(s): I10 - Essential (primary) hypertension (5) CAD (coronary artery disease) Qualifiers: Coronary Disease-Associated Artery/Lesion type: [place] artery Elem vs. transplanted heart: [place] heart Associated angina: without angina Qualified Code(s): I25.10 - Atherosclerotic heart disease of [place] coronary artery without angina pectoris (6) Leg pain Qualifiers: Laterality: left Qualified Code(s): M79.605 - Pain in left leg <Niki Dunne N - Last Filed: 05/28/18 19:59> (1) Osteomyelitis Qualifiers: Osteomyelitis type: acute hematogenous Osteomyelitis location: tibia Laterality: left Qualified Code(s): M86.062 - Acute hematogenous osteomyelitis, left tibia and fibula (2) Leg pain Qualifiers: Laterality: left Qualified Code(s): M79.605 - Pain in left leg (3) Type 2 diabetes mellitus Qualifiers: Diabetes mellitus watermaster insulin use: with group home use Diabetes mellitus complication status: with skin complications Diabetes mellitus complication detail: with other skin complication Qualified Code(s): E11.628 - Type 2 diabetes mellitus with other skin complications; 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 transplanted heart: [place] heart Associated angina: without angina Qualified Code(s): I25.10 - Atherosclerotic heart disease of [place] coronary artery without angina pectoris
[2018-05-28] MEDS: Insulin LISPRO 300 UNITS/3 ML VIAL SQ SCH ×4 (08:36→20:56)
[2018-05-28] MEDS: Fluticasone Propionate Nasal 50 MCG/SPRAY BOTTLE NS SCH (08:36)
[2018-05-28] MEDS: Pregabalin 25 MG CAPSULE PO SCH ×2 (08:37→19:59)
[2018-05-28] MEDS: cefTRIAXone 2,000 MG in Water for inj. (sterile) 20 ML 20 ML IVP SCH (08:38)
[2018-05-28] MEDS: Loratadine 10 MG TABLET PO SCH (08:38)
[2018-05-28] MEDS: Famotidine 20 MG TABLET PO SCH ×2 (08:38→20:00)
[2018-05-28] MEDS: Lisinopril-HCTZ 20-12.5mg TABLET PO SCH (08:41)
--- NOTE | 2018-05-28 10:29 | Infectious Disease Progress No ---
ID Progress Note Date of Encounter: 05/28/18 Time of Encounter: 09:30 - Subjective Subjective: Patient seen and examined at bedside this morning. She states she is doing well, had night sweats overnight but denies fevers, chills, chest pain, shortness of breath. Still has pain at the stump below the knee joint. Orthopedic surgery planning on debridement with cement removal. - Objective CBC & Chem 7: 05/28/18 03:17 05/28/18 03:17 - Exam Vitals: Temp Pulse Resp BP Pulse Ox 98.1 F 67 14 116/72 100 05/28/18 07:55 05/28/18 07:55 05/28/18 07:55 05/28/18 07:55 05/28/18 07:55 Exam: General: resting comfortably out of bed in chair, no acute distress HEENT: head is atraumatic and normocephalic, pupils are equal, EOMI, mucosa moist, external ears and nares are patent Neck: no JVD, trachea midline Chest: symmetrical chest wall rise, no tenderness to palpation Cardiovascular: regular rate and rhythm, no murmurs Respiratory: clear to auscultation bilaterally, no rales ronchi or wheezing Abdomen: soft, nontender, no guarding or rigidity Extremities: Left BKA, Tenderness to palpation of the distal aspect of the stump. No overlying erythema or edema noted. Neurological: no obvious focal neurological deficits Psych: pleasant, appropriate mood and affect - Assessment and Plan (1) Osteomyelitis Current Visit: Yes Status: Acute -Osteomyelitis and abscess formation secondary to infected below knee stump -Patient previously failed outpatient treatment with clindamycin -Has had increasing purulent discharge from a chronic nonhealing ulcer of the stump -On admission she was not septic, but lactic acid, ESR, and CRP were elevated -Imaging studies revealed osteomyelitis and a large fluid collection at the stump -Initially started on empiric vancomycin and cefepime -vancomycin discontinued after cultures grew GNR -Orthopedic surgery was consulted and the fluid collection was drained and sent for culture -Fluid culture grew serratia, blood cultures NGTD Plan: -antibiotics switched from cefepime to rocephin -Plan for orthopedic surgery to perform a debridement with cement removal followed by likely 6 week course of IV antibiotics -Will continue with Rocephin -Recommend sending intraoperative cultures Qualifiers: Osteomyelitis type: acute hematogenous Osteomyelitis location: tibia Laterality: left Qualified Code(s): M86.062 - Acute hematogenous osteomyelitis, left tibia and fibula SNOMED Code(s): 07593571 (2) Abscess Current Visit: Yes Status: Acute Drained by orthopedic surgery On rocephin 2g IV daily Patient will require 6 weeks of IV antibiotics after surgery SNOMED Code(s): 505304653 (3) Type 2 diabetes mellitus Current Visit: Yes Status: Chronic Qualifiers: Diabetes mellitus adjunct faculty for medical terminology insulin use: with adjunct faculty for medical terminology use Diabetes mellitus complication status: with skin complications Diabetes mellitus complication detail: with other skin complication Qualified Code(s): E11.628 - Type 2 diabetes mellitus with other skin complications; Z79.4 - remote computer terminal operator (current) use of insulin SNOMED Code(s): 76000929 Consult Discharge Plan - Plan Referrals: Shoshana Davis MD [Primary Care Provider] - - Attending Attestation I examined this patient and my medical decision-making was reviewed with the Resident Physician. I agree with the documented findings, disposition and treatment plan as described except to the extent set forth below. Assessment and plan: 1.Osteomyelitis of left BKA causative organism gram-negative wong 5 4 times a day pending 2.Abscess left stump status post I&D 3.Diabetes mellitus type 2 Commendations. DC cefepime Start Rocephin 2 g IV daily for hours Discussed with orthopedic team, they are still trying to get records from outside facility to see if they did do AKA versus debridement versus no surgical intervention at all.
[2018-05-28] MEDS: Ziprasidone 80 MG CAPSULE PO SCH (19:59)
[2018-05-28] MEDS: rOPINIRole 3 MG, rOPINIRole 2 MG PO SCH (19:59)
[2018-05-28] MEDS: Insulin DETEMIR 100 UNIT/ML X5UNITS SQ SCH (20:58)
[2018-05-28] MEDS: traMADol 50 MG TABLET PO PRN (20:58)
--- NOTE | 2018-05-28 21:10 | Orthopedics Progress Note ---
Date of Encounter: 05/28/18 Time of Encounter: 21:07 Subjective Principal diagnosis: Left BKA infection Interval history: 05/23/2018. Patient states the left BKA is feeling better. Less swelling and less pain. Denies chills fevers etc. Vital signs are stable. Patient is afebrile. Stump appears stable with a cystic area distally over the stump. This is over the tibial. No evidence of drainage. No significant swelling about the knee. MRI of the BKA was reviewed. There is fluid consistent with the clinical appearance. There are marked changes within the tibia at the level of the amputation site. Findings are consistent with osteomyelitis of the tibia proper. There are some subchondral marrow edema changes seen in the medial tibial plateau. Unclear if these are related to arthritis or an infectious process. White blood cell count remains normal. Impression: Suspected osteomyelitis left BKA stump. Recommendation: Had an extremely long discussion with the patient regarding the history of the amputation as well as the treatment delivered thus far. 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 It appears that she did well until 6 or 8 months ago when she had a revision of the BKA due to bony overgrowth. It does not appear that antibiotics were utilized at that time. The presence of the bone cement in the distal tibia is puzzling in that light. The patient states that she is having problems with fluid and swelling for probably the past 2 months. She states that beginning of the complaints she was on antibiotics but has been off antibiotics for probably a month. She has been on IV antibiotics for 2 days now with improvement but persistent swelling in the stump tip. I discussed with the patient and I suspect she has several options and none of these are urgent as she is not septic Andrei dealing with a draining wound. Could continue to treat her slowly with IV antibiotics I do not feel that this is going to try to eradicate the problem and we do not have a organism. The other option would be to "clean up the infection with a potential revision of the BKA, I discussed with the patient that this is very unpredictable and could not guarantee her success. The potentially more definitive treatment would be proceeding to AKA with the difficulty in ambulating with an AKA prosthesis. After much discussion we elected to proceed with an aspiration of the distal tibia. Informed consent was obtained and utilizing a Betadine prep the cystic area was entered and aspirated of approximately 15 mL of a cloudy pink thick fluid. Cultures were obtained. Discussed with the patient that information gathered from this culture could help in decision making. Also discussed that this may not provide an answer as she has been on antibiotics for a period of time and the culture results may be skewed. Other option would be to have additional input, probably from infectious disease to get an opinion as to further treatment. 05/24/2018. Patient appears very comfortable. Has decided she would like to proceed with an above-knee amputation to "eliminate the infection" Vital signs are stable. Patient is afebrile. Stump is clean and dry. No drainage. Minimal edema. Sensitive to touch and palpation. Hemoglobin is stable at 11. Normal white count. Sedimentation rate has dropped to 45 from 62. CRP has dropped from 16 to 15. Aspiration results are not available at thi s time. Impression: Infection left BKA stump, possible osteomyelitis. Recommendations: Discussed with the patient that I would not recommend any urgent surgery. Discussed with the patient that I would recommend an infectious disease consultation to get additional input and I would like to review her previous surgical procedures further. I am puzzled as to the presence of a bone plug in the distal tibia, question if this was a antibiotic impregnated plug that was inserted with the intention of having it removed. I would also wait until we have some definition of the organism we are currently treating. Discussed with the patient that the culture results may be negative due to her antibiotic use. 05/25/2018. Patient states the pain is unchanged. Denies any drainage. States she was started on Neurontin. Vital signs are stable. Patient is afebrile. White blood cell count is normal. Hemoglobin stable. Stump is improved. Much less edema. No drainage. Aspirate cultures show a preliminary a gram-negative wong. Impression: Left BKA stump infection, suspected osteomyelitis. Preliminary cultures revealed gram-negative wong. Recommendation: Appreciate infectious disease input. Will await final culture results before deciding on decision in regards to surgical intervention. Discussed with the patient a gram-negative rods extremely difficult to eradicate from bone and the patient may require AKA for more definitive treatment without an absolute guarantee that the infection has been eradicated. Patient understands and agrees with care as outlined. 05/26/2018. Patient continues to complain of left BKA stump pain. States that gabapentin is giving her little relief. Vital signs are stable. Patient is afebrile. Stump looks excellent with no evidence of drainage. No erythema induration or edema. Question the presence of fluid in the distal stump. Culture has grown Serratia. Blood cell count has been normal. Impression, left BKA stump infection. Recommendations. Had a long discussion with the patient regarding the potential treatment options available for her. Discussed with her that the AKA could not guarantee her that she would not have further problems and putting crease her ambulation difficulties and require much more energy expenditure. Discussed that still waiting operative reports from [facility] in regards to the treatment rendered thus far. Seeking input from infectious disease if they feel that this infection can be treated without further loss of tissue. 05/27/2018. Patient continues to have left stump pain. No drainage. Vital signs remained stable. Patient is afebrile. White blood cell count remains normal. Platelet count normal. Hemoglobin stable at about 11 g. Left sugars continue to be high. Impression: Left BKA stump infection, probable osteomyelitis of tibia Recommendation: Had a long discussion again with the patient in regards to the treatment options available. Have not been able to successfully identify the exact surgical procedure and the treatment plan wemih patient had a revision surgery of her BKA at [facility]. I suspect she had a cement plug placed into the tibia with antibiotic impregnation to deliver high-dose antibiotics for a short period of time. Puzzled as to why this would remain. He currently is a foreign body and offers no treatment in regards to her current infection. The patient s poke with her prosthesis who recommended patient attempt to save the knee joint. I discussed with the patient that this is a viable option and would require at least one and possibly more surgeries. First step would be to debride the wound and removed the cement plug. Would probably consider placing absorbable antibiotic beads and utilize IV antibiotics for a minimum of 6 weeks. Patient is aware that this may not be curative and she may ultimately require an AKA. Surgery time is not going to be available tomorrow, the earliest would possibly be Friday or over the weekend. We will proceed when OR time is available. We will continue IV antibiotics as per infectious disease. 05/28/2018. Patient continues to complain of pain in her left BKA stump. vital signs are stable patient remains afebrile. White blood cell count remains normal. Kidney function is normal. Blood sugars appear to be better controlled at this time. BKA stump is improved. No evidence of drainage. Minimal edema. No evidence of fluctuance. Patient remains quite tender. Impression: Left BKA stump infection, probable osteomyelitis. Plan: After much discussion patient has elected to proceed with irrigation and debridement of the BKA stump with removal of the previously placed cement plug in the tibia. I have been unable to find the operative report in regards to how or when the cement plug was placed. Discussed with the patient that its removal would hopefully allow us to more definitively treat the infection. We will proceed with an irrigation debridement with removal of the cement plug and probably packing with antibiotic beads. This will also require minimum of 6 weeks of postoperative IV antibiotics. Patient is aware that this may not definitively treat the infection she may require further surgery including the possibility of conversion to an AKA. Informed consent has been signed. We will proceed with surgery tomorrow as a "add-on" case when operating time is available. Objective Vital signs: Vital Signs Temp Pulse Resp BP Pulse Ox 05/28/18 19:47 98.7 F 81 17 122/78 97 05/28/18 15:00 98.1 F 70 14 127/78 95 05/28/18 11:00 98.4 F 64 16 94/57 96 05/28/18 07:55 98.1 F 67 14 116/72 100 05/27/18 23:56 98.6 F 69 15 105/66 94 Intake and Output 05/28/18 05/28/18 05/28/18 07:59 15:59 23:59 Intake Total 400 / 400 840 / 840 Output Total 450 / 450 Balance 400 / 400 840 / 840 -450 / -450 Intake: Oral 400 / 400 840 / 840 Output: Urine 450 / 450 Other: Meal Lunch Percent of Meal Consumed 100% Stool Size Large # Voids 1 2 Weight 85.7 kg Blood Glucose* 199 182 Patient Weight 05/28/18 23:59 Weight 85.7 kg - Labs CBC & BMP: 05/28/18 03:17 05/28/18 03:17 Labs: Abnormal lab results Hgb 11.1 g/dL (11.5-15.4) L 05/28/18 03:17 Hct 35.1 % (35.3-44.9) L 05/28/18 03:17 MCV 81.6 fL (83.0-100.0) L 05/28/18 03:17 MCH 25.8 pg (28.0-33.3) L 05/28/18 03:17 RDW 14.6 % (11.5-14.5) H 05/28/18 03:17 ESR 45 mm/hr (0-15) H 05/24/18 06:43 Glucose 201 mg/dL (70-105) H 05/28/18 03:17 POC Glucose 199 mg/dL (70-99) H 05/28/18 11:57 C-Reactive Protein 15 mg/L (Less than 10) H 05/24/18 06:43 Vancomycin Trough 14 mcg/mL (5-10) H 05/25/18 20:38 Consult Discharge Plan - Plan Referrals: Shoshana Davis MD [Primary Care Provider] -
[2018-05-28] MEDS ORDERED: OXYCODONE Oral CONC 10 MG/0.5 ML ORAL.SYG SL ONE (23:22)
[2018-05-28] MEDS ORDERED: Acetaminophen IV 500 MG/50 ML INFUS..BTL IVPB ONE (23:22)
[2018-05-29 03:29] LABS: Basophils % 0.4 %; Eosinophils # 0.2 K/mcL (0.0-0.6); Eosinophils % 2.2 %; Hematocrit 35.3 % (35.3-44.9); Hemoglobin 11.4 g/dL (11.5-15.4); Immature Granulocytes % 0.5 % (0-4); Lymphocytes # 2.9 K/mcL (0.6-4.6); Lymphocytes % 34.5 %; Mean Corpuscular HGB Conc 32.3 g/dL (31.6-35.5); Mean Corpuscular Hemoglobin 26.1 pg (28.0-33.3); Mean Corpuscular Volume 80.8 fL (83.0-100.0); Mean Platelet Volume 9.9 fL (9.4-12.4); Monocytes # 0.4 K/mcL (0.0-1.3); Monocytes % 5.1 %; Neutrophils # 4.7 K/mcL (1.6-8.9); Platelet Count 239 K/mcL (140-400); Red Blood Count 4.37 M/mcL (3.82-4.97); Red Cell Distribution Width 14.6 % (11.5-14.5); Segmented Neutrophils % 57.3 %
[2018-05-29 03:45] LABS: BUN/Creatinine Ratio 18 (6-26); Blood Urea Nitrogen 15 mg/dL (6-20); Calcium 9.2 mg/dL (8.6-10.3); Carbon Dioxide 30 mEq/L (23-29); Chloride 98 mEq/L (98-107); Glucose 223 mg/dL (70-105); Osmolality,Calculated 288 (280-300); Sodium 135 mEq/L (136-145); eGFR For Non-African Americans > 60 (> 60)
[2018-05-29] MEDS ORDERED: 0.9 % Sodium Chloride 500 ML IVC ONE ×2 (04:41→08:48)
[2018-05-29] MEDS: *HR* Heparin 5,000 UNIT/ML VIAL SQ SCH ×2 (05:16→15:55)
[2018-05-29] MEDS ORDERED: Acetaminophen IV 500 MG/50 ML INFUS..BTL IVPB PRN (06:00)
[2018-05-29] MEDS ORDERED: 0.9 % Sodium Chloride 250 ML IVC ONE ×2 (06:12→07:30)
--- NOTE | 2018-05-29 07:59 | Event Note ---
Date of Encounter: 05/29/18 Time of Encounter: 07:51 Patient was seen and examined. Agree with the progress note as written by the resident physician. Patient had issues with low blood pressure at night that needed small fluid boluses. Remains on the lower side with systolics in the 70s. Patient was admitted initially with suspected left BKA stump infection. MRI showed large fluid collection measuring 2.1 x 3.8 x 2.0 cm compatible with a large abscess. 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 Initially seen by orthopedics and aspiration of the distal tibia cyst was done. Cultures came back positive for Serratia marcescens. ID were consulted and eventually orthopedics have decided to take patient to the OR for I&D of the left BKA stump with removal of previously placed cement plug in the tibia. Patient has been maintained on different IV antibiotics and currently is on IV ceftriaxone. GEN: NAD CVS: RRR. S1, S2, No m/r/g RESP: CTAB ABD: Soft, NT, ND, +BS EXT: No edema. 2+ DP. No rashes. Left BKA noted NEURO: Nonfocal Continue IV ceftriaxone. Fluid aspiration cultures are positive for Serratia marcescens Blood culture from 411 are negative today. Plans for OR today Hold all antihypertensives. Patient's blood pressure is borderline and I would bolus her another 500 mL Unsure if blood pressure issues related to pain medications versus infectious We will monitor. Continue home meds DVT prophylaxis
--- NOTE | 2018-05-29 08:47 | Internal Med Progress Note ---
Hospitalist Progress Note - Encounter Date of Encounter: 05/29/18 Time of Encounter: 08:47 - Subjective Interval History: Patient seen and evaluated at the bedside this morning. She endorses 8/10 pain in her left leg, and states that she has been unable to receive pain medication since early this morning due to lower blood pressure than normal. Patient states that she thinks this is because she received IV and sublingual pain medications yesterday. She is currently awaiting wound debridement this evening with orthopedic surgery. She denies any acute complaints or concerns at this time. - Exam Vitals: Temp Pulse Resp BP Pulse Ox 97.4 F L 58 18 95/51 94 05/29/18 06:39 05/29/18 06:39 05/29/18 06:39 05/29/18 08:28 05/29/18 06:39 Exam: GENERAL: Well-developed, well-nourished adult female in no acute distress. HEENT: Atraumatic and normocephalic. CARDIOVASCULAR: Regular rate and rhythm. S1 and S2 present. No murmurs, gallops, or rubs. RESPIRATORY: Clear to auscultation bilaterally. Chest rises and falls symmetrically without accessory muscle use. GASTROINTESTINAL: Abdomen is soft, nontender, nondistended. EXTREMITIES: No clubbing, cyanosis, or edema. Left lower extremity is surgically absent below the knee, with clean dressings in place. SKIN: Warm, dry, and intact. NEUROLOGIC: Alert and oriented x3. Patient is cooperative with exam and answers questions appropriately. No apparent focal deficits. PSYCHIATRIC: Appropriate mood and affect. 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 Patient has had multiple revisions, and has reportedly been having trouble with this for the last several months, with wound care managed by Dr. Veras. Per review of ED documentation, patient reportedly had visible bone with wound drainage at the time of presentation. Initial laboratory studies demonstrated WBC WNL, elevated ESR of 62, and CRP of 16. Blood cultures were obtained, and patient was started on empiric antibiotic therapy with vancomycin and cefepime. X-ray performed on 05/21/18 demonstrated findings highly suspicious for osteomyelitis involving the stump with suggestion of soft tissues tract e xtending from the lateral skin. Subsequent MRI performed on 05/23/18 demonstrated large rim enhancing fluid collection at the stump measuring 2.1 x 3.8 x 2.0 cm most compatible with large abscess with surrounding subcutaneous in edema and post contrast enhancement consistent with cellulitis. Patient was also found to have osteomyelitis of the distal stump with patchy marrow edema and enhancement extending to the level of the proximal metaphysis highly suspicious for proximal osteomyelitis. Patient was evaluated by orthopedic surgery, who performed aspiration of tibial abscess. Fluid cultures are significant for growth of Serriata marcescens. Patient was started on ertapenem by infectious disease team; however, this was changed to rocephin yesterday in anticipation of discharge home with prolonged antibiotic therapy. Plan: - Continue rocephin per ID recommendation. - Repeat and trend daily CBC. - Plan for operative debridement this evening with Dr. Fernandez. - Further recommendations per ID and orthopedic surgery. (2) Leg pain Current Visit: Yes Status: Acute Assessment and Plan: Patient complains of significant lower extremity pain, which she currently rates as 9/10 in intensity. She has been reporting little improvement with oxycodone 10 mg. Patient reports that she takes "whatever she can get" for pain at home, and admits to procuring pain medication from multiple sources. She states that she normally takes Percocet at home, with single doses ranging from 10-30 mg at one time. She states that she has been prescribed tramadol; however, she says that this does not help her pain. Patient describes her pain as "burning" in character, and denies having tried medications for neuropathic pain. Patient did have decrease blood pressures with gabapentin, which was discontinued in favor of lyrica 25mg BID yesterday. Patient states that she feels like this is helping her pain; however, she was noted to have decreased BP with systolic in the 90s. Plan: - Continue lyrica 25mg BID; however, will space lyrica and opioid analgesics to minimize BP effect. - Continue analgesics PRN. (3) Type 2 diabetes mellitus Current Visit: Yes Status: Chronic Assessment and Plan: History of diabetes with long-term use of insulin. - Accuchecks and medium-dose SSI Q6H while NPO. (4) CAD (coronary artery disease) Current Visit: Yes Status: Chronic Assessment and Plan: - Continue home medications. (5) DVT prophylaxis Current Visit: Yes Status: Acute Assessment and Plan: - Heparin 5000units Q12H. - Time Spent with Patient Total time spent is greater than 50% in coordination of care (as documented) at patient's floor/unit and/or counseling patient: Internal Medicine: Result - Labs CBC & Chem 7: 05/29/18 03:12 05/29/18 03:12 Labs: Short CBC 05/29/18 Range/Units 03:12 WBC 8.3 (4.3-11.1) K/mcL Hgb 11.4 L (11.5-15.4) g/dL Hct 35.3 (35.3-44.9) % Plt Count 239 (140-400) K/mcL Neutrophils # 4.7 (1.6-8.9) K/mcL BMP 05/29/18 03:12 Sodium 135 L Potassium 4.0 Chloride 98 Carbon Dioxide 30 H BUN 15 Creatinine 0.85 Glucose 223 H Calcium 9.2 Consult Discharge Plan - Plan Referrals: Shoshana Davis MD [Primary Care Provider] - (1) Osteomyelitis Qualifiers: Osteomyelitis type: acute hematogenous Osteomyelitis location: tibia Laterality: left Qualified Code(s): M86.062 - Acute hematogenous osteomyelitis, left tibia and fibula (2) Leg pain Qualifiers: Laterality: left Qualified Code(s): M79.605 - Pain in left leg (3) Type 2 diabetes mellitus Qualifiers: 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 transplanted heart: [place] heart Associated angina: without angina Qualified Code(s): I25.10 - Atherosclerotic heart disease of [place] coronary artery without angina pectoris
[2018-05-29] MEDS: Loratadine 10 MG TABLET PO SCH (08:53)
[2018-05-29] MEDS: Famotidine 20 MG TABLET PO SCH (08:53)
[2018-05-29] MEDS: cefTRIAXone 2,000 MG in Water for inj. (sterile) 20 ML 20 ML IVP SCH (08:53)
[2018-05-29] MEDS: Pregabalin 25 MG CAPSULE PO SCH (08:53)
[2018-05-29] MEDS: Fluticasone Propionate Nasal 50 MCG/SPRAY BOTTLE NS SCH (08:54)
[2018-05-29] MEDS ORDERED: *HR* FentaNYL (PF) 100 MCG/2 ML VIAL IVP ONE (11:33)
--- NOTE | 2018-05-29 11:36 | Infectious Disease Progress No ---
ID Progress Note Date of Encounter: 05/29/18 Time of Encounter: 10:45 - Subjective Subjective: Patient seen and examined at bedside this morning. She complains of pain at her left stump which caused her difficulty with sleep. Hypotension overnight, patient states occurred after she received pain medications. Currently denies any fevers, chills, night sweats, chest pain, or shortness of breath. Plan for I&D with cement plug removal by ID today if OR available. - Objective CBC & Chem 7: 06/01/18 07:16 06/01/18 07:16 - Exam Vitals: Temp Pulse Resp BP Pulse Ox 98.3 F 70 17 96/59 93 05/29/18 10:30 05/29/18 10:30 05/29/18 10:30 05/29/18 10:30 05/29/18 10:30 Exam: General: resting comfortably out of bed in chair, no acute distress HEENT: head is atraumatic and normocephalic, pupils are equal, EOMI, mucosa moist, external ears and nares are patent Neck: no JVD, trachea midline Chest: symmetrical chest wall rise, no tenderness to palpation Cardiovascular: regular rate and rhythm, no murmurs Respiratory: clear to auscultation bilaterally, no rales ronchi or wheezing Abdomen: soft, nontender, no guarding or rigidity Extremities: Left BKA, Tenderness to palpation of the distal aspect of the stump. No overlying erythema or edema noted. Neurological: no obvious focal neurological deficits Psych: pleasant, appropriate mood and affect - Assessment and Plan (1) Osteomyelitis Current Visit: Yes Status: Acute -Osteomyelitis and abscess formation secondary to infected below knee stump -Patient previously failed outpatient treatment with clindamycin -On admission she was not septic, but lactic acid, ESR, and CRP were elevated -Imaging studies revealed osteomyelitis and a large fluid collection at the stump -Initially started on empiric vancomycin and cefepime -vancomycin discontinued after cultures grew GNR -Orthopedic surgery was consulted and the fluid collection was drained and sent for culture -Fluid culture grew serratia, blood cultures NGTD Plan: -Currently on IV Rocephin -PICC line placed for [facility] antibiotic coures that will be required after surgery -Plan for orthopedic surgery to perform a debridement with cement removal followed by at least a 6 week course of IV antibiotics -Recommend sending intraoperative cultures Qualifiers: Qualified Code(s): Domingo86.062 - Acute hematogenous osteomyelitis, left tibia and fibula SNOMED Code(s): 03417892 (2) Abscess Current Visit: Yes Status: Acute Drained by orthopedic surgery On rocephin 2g IV daily Patient will require at least 6 weeks of IV antibiotics after surgery SNOMED Code(s): 487614245 (3) Type 2 diabetes mellitus Current Visit: Yes Status: Chronic Qualifiers: Qualified Code(s): E11.628 - Type 2 diabetes mellitus with other skin complications; Z79.4 - [facility] (current) use of insulin SNOMED Code(s): 12112418 Consult Discharge Plan - Plan Additional Instructions: Follow-up with your PCP in 3-5 days for reevaluation. Follow up with orthopedic surgery and infectious disease an approximately 2 weeks. Have laboratory studies drawn every week. Continue infusion of ceftriaxone 2 g daily for the next 6 weeks. Take Percocet 103 25 mg every 6 hours as needed for severe (10/10) pain. Continue taking Lyrica 25 mg twice daily. Do not take Percocet and Lyrica at the same time, as this may drop your blood pressure and make you dizzy. Make sure to use appropriate fall precautions. Take Flexeril 10 mg every 8 hours as needed for muscle spasms. Continue taking your regular home medications. Return to the emergency department if he have worsening pain, fevers, chills, nausea, vomiting, or if new concerns arise. Referrals: Shoshana Davis MD [Primary Care Provider] - Prescriptions: OxyCODONE/APAP 10/325 [Percocet 10/325 MG] 1 each PO Q6HR PRN 2 Days #8 tablet PRN Reason: Pain RX: cefTRIAXone [Rocephin] 2,000 mg IVPB DAILY #42 vial RX: Cyclobenzaprine [Flexeril] 10 mg PO Q8H PRN #30 tablet PRN Reason: Spasms RX: Pregabalin [Lyrica] 25 mg PO BID 7 Days #14 capsule - Attending Attestation I examined this patient and my medical decision-making was reviewed with the Resident Physician. I agree with the documented findings, disposition and treatment plan as described except to the extent set forth below. Assessment and plan: 1.Osteomyelitis of left BKA causative organism gram-negative wong 5 4 times a day pending 2.Abscess left stump status post I&D 3.Diabetes mellitus type 2 Commendations. DC cefepime Start Rocephin 2 g IV daily for hours Discussed with orthopedic team, they are still trying to get records from outside facility to see if they did do AKA versus debridement versus no surgical intervention at all.
[2018-05-29] MEDS: Insulin LISPRO 300 UNITS/3 ML VIAL SQ SCH ×2 (12:00→16:42)
[2018-05-29] MEDS: *HR* OxyCODONE Immed Rel 5 MG TABLET PO PRN (14:55)
--- NOTE | 2018-05-29 18:45 | Anesthesia Evaluation PreOp ---
Date of Encounter: 05/29/18 Time of Encounter: 18:43 - Past History Planned Operation: Left BKA I & D Cardiac History: HTN, Hyperlipidemia, Other (Cardiac Cath 2010 - EF-55% Mild CAD) Pulmonary History: Denies Any Significant HX MIXER WET POUR History: Other (Anxiety/Depression, Bipolar) Other Medical History: Hepatic (Fatty Liver), Diabetes Type II, GERD, Other (Fibromyalgia, RLS, Migraines,obese) Anesthesia History: No Prior Anesthetic Complications, Past Anesthesia (Left BKA, [place], Left Ankle, Breast Lumpectomy, Heart Cath) : No Alcohol Use: none Drug use: none Medications and Allergies Albuterol Neb [Proventil Neb] 2.5 mg IH Q6H PRN 05/22/18 [History] Albuterol Sulfate [Albuterol Inhaler] 2 puff IH Q4H PRN 05/22/18 [History] Allopurinol [Zyloprim 100 MG] 100 mg PO DAILY 05/22/18 [History] Atorvastatin Calcium [Lipitor] 80 mg PO DAILY 05/22/18 [History] Carvedilol [Coreg] 25 mg PO BID 05/22/18 [History] Estrogens, Conjugated [Premarin] 0.3 mg PO DAILY 05/22/18 [History] Fluticasone Propionate Nasal [Flonase] 2 spray NS 3-4XD 05/22/18 [History] Insulin Glargine,Hum.rec.anlog [Basaglar Kwikpen U-100] 30 units SQ DAILY 05/22/18 [History] Loratadine [Allergy Relief] 10 mg PO DAILY 05/22/18 [History] Meloxicam 7.5 mg PO BID PRN 05/22/18 [History] Montelukast [Singulair] 10 mg PO DAILY 05/22/18 [History] Pantoprazole Sodium [Protonix] 40 mg PO DAILY 05/22/18 [History] Paroxetine HCl [Paxil Cr] 37.5 mg PO DAILY 05/22/18 [History] Ropinirole HCl [Requip] 5 mg PO HS 05/22/18 [History] SUMAtriptan Succinate [Imitrex] 100 mg PO AD PRN 05/22/18 [History] Ziprasidone [Geodon] 160 mg PO HS 05/22/18 [History] raNITIdine HCl [Zantac] 150 mg PO BID 05/22/18 [History] Lisinopril/Hydrochlorothiazide [Zestoretic 20-12.5 mg Tablet] 1 tab PO DAILY 0 05/23/18 [History] Magic Mouthwash 10 ml PO TID PRN 05/23/18 [History] Allergy/AdvReac Type Severity Reaction Status Date / Time acetaminophen Allergy Nausea Verified 05/21/18 18:05 [From Darvocet-N 100] escitalopram [From Lexapro] Allergy Confusion Verified 05/21/18 18:05 latex Allergy See Verified 05/21/18 18:05 Comments levofloxacin [From Levaquin] Allergy Nausea Verified 05/21/18 18:05 [place] Allergy Confusion Verified 05/21/18 18:05 propoxyphene Allergy Nausea Verified 05/21/18 18:05 [From Darvocet-N 100] sumatriptan [From Imitrex] Allergy See Verified 05/21/18 18:05 Comments hydrocodone AdvReac See Verified 05/21/18 18:05 Comments - Meds/Allergy Pre-op Review Medications Reviewed: Yes Allergies Reviewed: Yes Beta Blockers on Current Med List: Yes If Beta Blockers taken, Date/Time (Last Dose taken): Not Given - Low BP Anesthesia Results - Labs 05/29/18 03:12 05/29/18 03:12 - Imaging EKG: report reviewed (SR) Anesthesia Exam Vital Signs/O2 Sat, Most Current Temp Pulse Resp BP Pulse Ox 98.8 F 59 17 111/67 94 05/29/18 15:48 05/29/18 15:48 05/29/18 15:48 05/29/18 15:48 05/29/18 15:48 NPO (# of Hours): > 8 hrs Pain Scale: 0 Pain Scale Used: Numeric (1 - 10) - HEENT Pupil (Motor): Pupils equal, EOMI Mallampati: II Teeth: Normal Oral Opening: Greater than 3 - MIXER WET POUR LOC: Oriented MIXER WET POUR Motor: Normal RUE, Normal LUE, Normal RLE, Normal LLE, Normal Face MIXER WET POUR Sensory: Normal: RUE, LUE, RLE, LLE, Face - Cardiac Rhythm: Regular Murmur: None JVD: No Carotid Bruit: No - Pulmonary Breath Sounds: bilateral Clear Respiratory Effort: Symmetrical Anesthesia Assess/Plan ASA Score: 3 Level of consciousness: Cooperative Anesthetic Plan: General Autologous Blood: Yes Monitoring Plan: Standard Monitors Recovery Plan: PACU
[2018-05-29] MEDS ORDERED: *HR* FentaNYL (PF) 100 MCG/2 ML VIAL ONE (20:41)
[2018-05-29] MEDS ORDERED: *HR* Propofol 200 MG/20 ML VIAL IVP ONE (20:41)
[2018-05-29] MEDS ORDERED: Ondansetron 4 MG/2 ML VIAL ONE (20:43)
[2018-05-29] MEDS ORDERED: Dexamethasone 4 MG/ML VIAL ONE (20:43)
[2018-05-29] MEDS ORDERED: *HR* Succinylcholine 200 MG/10 ML VIAL IVP ONE (20:43)
[2018-05-29] MEDS ORDERED: Lidocaine -MPF 2% 2 ML VIAL ONE (20:43)
[2018-05-29] MEDS ORDERED: *HR* OxyCODONE Immed Rel 5 MG TABLET PO PRN (21:11)
[2018-05-29] MEDS ORDERED: Ondansetron 4 MG/2 ML VIAL IVP ONE (21:11)
[2018-05-29] MEDS ORDERED: *HR* Promethazine 25 MG/ML VIAL IVP PRN (21:11)
[2018-05-29] MEDS ORDERED: *HR* Labetalol 20 MG/4 ML SYRINGE IVP PRN (21:11)
[2018-05-29] MEDS ORDERED: EPHEDrine 50 MG/ML VIAL ONE (22:14)
[2018-05-29] MEDS: *HR* HYDROmorphone (PF) 1 MG/ML SYRINGE IVP PRN ×5 (23:02→23:38)
--- NOTE | 2018-05-29 23:23 | Operative Note ---
Date of procedure: 05/29/18 Pre-op diagnosis: Infected left below knee amputation stump Post-op diagnosis: same Procedure: 1. Incision and drainage/debridement left below knee amputation (skin/subcutaneous tissue/bone) 2. Removal of cement plug left tibia Insertion of antibiotic beads left tibia 4. Wound closure left below knee amputation (6 cm) Implants: 2.4 g of tobramycin 25 g of OsteoSet Complications: None Anesthesia: GETA Surgeon: Thompson Fernandez Was there an distribution center assistant present: No Estimated blood loss (cc): 7 Tourniquet Time (Minutes): 53 Specimen: None Condition: stable Disposition: PACU Procedure in Detail: Gross findings: Clinical examination revealed a below knee amputation with a somewhat irregular well-healed incision. There was a dry scab over the very tip of the tibia. No open wound was noted. X-rays had revealed a below knee amputation with what appears to be a cement plug in the distal tibia. There are some calcifications in the soft tissue. Intraoperative findings revealed some fatty necrosis but no gross purulence. Marked amount of scarring was noted. There was a smooth, bone cement plug in the distal portion of the stump which was easily removed. This was followed by curetting the canal of the distal tibia which revealed relatively poor soft tissues without evidence of necrotic tissue or bony destruction. The very distal tibia was rongeured to healthy cortico-cancellus bone and removed any bony prominences. The canal of the tibial stump was packed with OsteoSet beads with 2.4 g of tobramycin. Wound was closed over a [place] drain. Stump dressing was applied. Procedure: Patient is sitting the operating room and transferred to the operating table. Patient was now administered a general anesthesia. Once adequate level anesthesia had been obtained the left lower extremity was prepped and draped in normal standard fashion with a tourniquet placed high about the upper thigh. Leg was now elevated for exsanguination and tourniquet was inflat ed. The previous incision was opened which is along the posterior aspect of the stump and an ellipse was created to remove the scab/dry eschar area on the tip of the stump. Approximately 6+ centimeter ellipse was created. A section was carried through the subcutaneous tissue. Dissection was carried directly down onto the tibia. The previously identified cement plug was protruding through the remaining tibia. The plug was grasped and removed. No. Material was identified. The canal of the tibia was then curetted of any loose tissue which was minimal. No destructive changes were noted. The terminal tibia was then right sure to healthy margins and smoothed so that no bony prominences are noted. Wound was now copiously irrigated with saline. Any potentially concerning soft tissue was removed with healthy tissue noted. Wound was once again irrigated with saline. The canal of the tibia where the bone plug had been seated was now packed with OsteoSet antibiotic beads. At this time the wound was closed with multiple 0 Prolene suture placed in a vertical mattress fashion to close the deep tissue and then skin approximation with 3-0 Prolene suture. A 1/4 inch Michelle drain was placed deep in the wound and exited through the lateral edge of the incision. A stump dressing was applied, this consisted of Xeroform 4 x 4's ABDs cast padding and Luis wrap. Tourniquet was deflated. Patient was now transferred from the operating table hospital bed, awakened from anesthesia and then transferred to the postanesthesia care unit in stable and satisfactory condition. All sponge needle evidence for counts are correct. No specimens are sent for pathology.
--- NOTE | 2018-05-30 00:06 | Anesthesia Evaluation Post Op ---
Date of Encounter: 05/30/18 Time of Encounter: 00:05 - Vital Signs Vital Signs: Vital Signs/O2 Sat, Most Current Temp Pulse Resp BP Pulse Ox 97.9 F 90 20 144/83 96 05/30/18 00:00 05/30/18 00:00 05/30/18 00:00 05/30/18 00:00 05/30/18 00:00 - Lungs Lungs: Clear Ascult./Percussion - Airway Airway: Non-obstructed - Mental Status Mental Status: Alert & Oriented, Answers Appropriately - Pain Pain Scale: 7 Pain Scale used: Numeric (1 - 10) - Nausea Vomiting Nausea Vomiting: Not Present - Hydration Hydration: Ice chips, Has not voided - Discharge PostOp Status: Transfer Patient to floor
[2018-05-30] MEDS ORDERED: Dextrose Gel 15 GM/37.5 ML TUBE PO PRN ×4 (00:13→02:41)
[2018-05-30] MEDS ORDERED: *HR* HYDROmorphone (PF) 1 MG/ML SYRINGE IVP PRN (00:13)
[2018-05-30] MEDS ORDERED: Ondansetron 4 MG/2 ML VIAL IVP ONE (00:13)
[2018-05-30] MEDS ORDERED: *HR* Labetalol 20 MG/4 ML SYRINGE IVP PRN (00:13)
[2018-05-30] MEDS ORDERED: D5% in Water 1,000 ML IVC PRN ×3 (00:13→02:41)
[2018-05-30] MEDS ORDERED: *HR* Promethazine 25 MG/ML VIAL IVP PRN (00:13)
[2018-05-30] MEDS ORDERED: Naloxone 0.4 MG/ML INJ IVP PRN (00:13)
[2018-05-30] MEDS ORDERED: *HR* Dextrose 50 % in Water (Syg) 50 ML SYRINGE IVP PRN ×2 (00:13→02:41)
[2018-05-30 01:31] LABS: Basophils % 0.5 %; Eosinophils % 0.2 %; Hematocrit 35.6 % (35.3-44.9); Hemoglobin 11.5 g/dL (11.5-15.4); Immature Granulocytes % 0.5 % (0-4); Lymphocytes # 1.3 K/mcL (0.6-4.6); Lymphocytes % 14.4 %; Mean Corpuscular HGB Conc 32.3 g/dL (31.6-35.5); Mean Corpuscular Hemoglobin 26.1 pg (28.0-33.3); Mean Corpuscular Volume 80.7 fL (83.0-100.0); Mean Platelet Volume 9.8 fL (9.4-12.4); Monocytes # 0.1 K/mcL (0.0-1.3); Monocytes % 1.3 %; Neutrophils # 7.3 K/mcL (1.6-8.9); Platelet Count 214 K/mcL (140-400); Red Blood Count 4.41 M/mcL (3.82-4.97); Red Cell Distribution Width 14.8 % (11.5-14.5); Segmented Neutrophils % 83.1 %
[2018-05-30 01:50] LABS: BUN/Creatinine Ratio 23 (6-26); Blood Urea Nitrogen 18 mg/dL (6-20); Calcium 8.9 mg/dL (8.6-10.3); Carbon Dioxide 27 mEq/L (23-29); Chloride 102 mEq/L (98-107); Glucose 208 mg/dL (70-105); Osmolality,Calculated 292 (280-300); Potassium 4.5 mEq/L (3.5-5.1); Sodium 137 mEq/L (136-145); eGFR For Non-African Americans > 60 (> 60)
[2018-05-30] MEDS: Acetaminophen IV 500 MG/50 ML INFUS..BTL IVPB PRN (02:32)
[2018-05-30] MEDS ORDERED: Insulin LISPRO 300 UNITS/3 ML VIAL SQ SCH (06:00)
[2018-05-30] MEDS: *HR* OxyCODONE Immed Rel 5 MG TABLET PO PRN ×4 (06:15→23:18)
[2018-05-30] MEDS: *HR* Heparin 5,000 UNIT/ML VIAL SQ SCH ×2 (06:16→16:55)
[2018-05-30] MEDS: Insulin LISPRO 300 UNITS/3 ML VIAL SQ SCH ×4 (06:58→19:59)
--- NOTE | 2018-05-30 08:14 | Internal Med Progress Note ---
Hospitalist Progress Note - Encounter Date of Encounter: 05/30/18 Time of Encounter: 08:14 - Subjective Interval History: Nursing staff reported that patient was very upset this morning, as she had been experiencing 10/10 pain since surgery yesterday evening that was not improved with PO narcotic pain medications. On evaluation, patient appears to be very uncomfortable secondary to left lower extremity pain, with increased psychomotor activity. She requests a morphine pain pump; however, it was discussed with her that that would be something that could only be ordered by surgery, and is very difficult to get approved with there being a nationwide morphine shortage. Patient was administered a one-time dose of fentanyl 50 mg; however, she reported no improvement in her symptoms. Dilaudid 1 mg was ordered, which did provide adequate pain relief, and patient was noted to be sleeping comfortably shortly after receiving that medication. With the exception of severe pain, patient voices no acute concerns today. - Exam Vitals: Temp Pulse Resp BP Pulse Ox 97.7 F 69 18 135/78 94 05/30/18 08:03 05/30/18 08:03 05/30/18 08:03 05/30/18 08:03 05/30/18 08:03 Exam: GENERAL: Well-developed, well-nourished adult female lying in bed. Patient is in moderate distress secondary to severe pain. HEENT: Atraumatic and normocephalic. CARDIOVASCULAR: Regular rate and rhythm. S1 and S2 present. No murmurs, gallops, or rubs. RESPIRATORY: Clear to auscultation bilaterally. Chest rises and falls symmetrically without accessory muscle use. GASTROINTESTINAL: Abdomen is soft, nontender, nondistended. EXTREMITIES: No clubbing, cyanosis, or edema. Left lower extremity is surgically absent below the knee, with clean surgical dressings in place. SKIN: Warm, dry, and intact. NEUROLOGIC: Alert and oriented x3. Patient is cooperative with exam and answers questions appropriately. No apparent focal deficits. 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 Patient has had multiple revisions, and has reportedly been having t rouble with this for the last several months, with wound care managed by Dr. Veras. Per review of ED documentation, patient reportedly had visible bone with wound drainage at the time of presentation. Initial laboratory studies demonstrated WBC WNL, elevated ESR of 62, and CRP of 16. Blood cultures were obtained, and patient was started on empiric antibiotic therapy with vancomycin and cefepime. X-ray performed on 05/21/18 demonstrated findings highly suspicious for osteomyelitis involving the stump with suggestion of soft tissues tract extending from the lateral skin. Subsequent MRI performed on 05/23/18 demonstrated large rim enhancing fluid collection at the stump measuring 2.1 x 3.8 x 2.0 cm most compatible with large abscess with surrounding subcutaneous in edema and post contrast enhancement consistent with cellulitis. Patient was also found to have osteomyelitis of the distal stump with patchy marrow edema and enhancement extending to the level of the proximal metaphysis highly suspicious for proximal osteomyelitis. Patient was evaluated by orthopedic surgery, who performed aspiration of tibial abscess. Fluid cultures are significant for growth of Serriata marcescens. Patient was started on ertapenem by infectious disease team; however, this has been changed to rocephin in anticipation of discharge home with prolonged antibiotic therapy. Patient underwent incision and drainage/debridement of the left BKA stump, with removal of cement plug in the left tibia and insertion of antibiotic beads with Dr. Fernandez on 05/29/2018. Since then, patient has reported nearly consistent 10/10 left BKA stump pain, which is not alleviated by PO oxycodone or IV fentanyl; however, patient reports successful, though short-term, alleviation of pain with IV Dilaudid. Plan: - Continue rocephin per ID recommendations. - Repeat and trend daily CBC. - PRN order placed for dilaudid 1mg Q4H, with stop date set for tomorrow afternoon in hopes of achieving better postoperative pain control. Patient counseled that this is only a short time management option for her pain, as she will be unable to go home requiring this much pain medication. - Further recommendations per ID and orthopedic surgery. (2) Leg pain Current Visit: Yes Status: Acute Assessment and Plan: Patient complains of significant lower extremity pain, which she currently rates as 9/10 in intensity. She has been reporting little improvement with oxycodone 10 mg. Patient reports that she takes "whatever she can get" for pain at home, and admits to procuring pain medication from multiple sources. She states that she normally takes Percocet at home, with single doses ranging from 10-30 mg at one time. She states that she has been prescribed tramadol; however, she says that this does not help her pain. Patient describes her pain as "burning" in character, and denies having tried medications for neuropathic pain. Patient did have decrease blood pressures with gabapentin, which was discontinued in favor of lyrica 25mg BID. Patient states that she feels like this is helping her pain; however, she was noted to have decreased BP with systolic in the 90s. Patient reports increased leg pain since incision and drainage/debridement of left BKA stump yesterday evening. She has reportedly been refusing PO pain medic ations stating that "they want work". Plan: - Short-term escalation of opioid pain medications as above. Plan to discontinue use of Dilaudid over the next 24 hours. - Continue lyrica 25mg BID with several hours between administration of Lyrica and opioid analgesics to minimize BP effect. - Continue use of Flexeril, oxycodone, and Ultram PRN. (3) Type 2 diabetes mellitus Current Visit: Yes Status: Chronic Assessment and Plan: History of diabetes with long-term use of insulin. - Continue accuchecks and medium-dose SSI ACHS. (4) CAD (coronary artery disease) Current Visit: Yes Status: Chronic Assessment and Plan: - Continue home medications. (5) DVT prophylaxis Current Visit: Yes Status: Acute Assessment and Plan: - Heparin 5000units Q12H. - Time Spent with Patient Total time spent is greater than 50% in coordination of care (as documented) at patient's floor/unit and/or counseling patient: Internal Medicine: Result - Labs CBC & Chem 7: 05/30/18 13:14 05/30/18 01:10 Labs: Short CBC 05/30/18 Range/Units 01:10 WBC 8.7 (4.3-11.1) K/mcL Hgb 11.5 (11.5-15.4) g/dL Hct 35.6 (35.3-44.9) % Plt Count 214 (140-400) K/mcL Neutrophils # 7.3 (1.6-8.9) K/mcL BMP 05/30/18 01:10 Sodium 137 Potassium 4.5 Chloride 102 Carbon Dioxide 27 BUN 18 Creatinine 0.80 Glucose 208 H Calcium 8.9 Consult Discharge Plan - Plan Referrals: Shoshana Davis MD [Primary Care Provider] - _ (1) Osteomyelitis Qualifiers: Osteomyelitis type: acute hematogenous Osteomyelitis location: tibia Laterality: left Qualified Code(s): M86.062 - Acute hematogenous osteomyelitis, left tibia and fibula (2) Leg pain Qualifiers: Laterality: left Qualified Code(s): M79.605 - Pain in left leg (3) Type 2 diabetes mellitus Qualifiers: Diabetes mellitus detention insulin use: with watermaster use Diabetes mellitus complication status: with skin complications Diabetes mellitus complication detail: with other skin complication Qualified Code(s): E11.628 - Type 2 diabetes mellitus with other skin complications; Z79.4 - assisted (current) use of insulin (4) CAD (coronary artery disease) Qualifiers: Coronary Disease-Associated Artery/Lesion type: [place] artery [place] vs. transplanted heart: [place] heart Associated angina: without angina Qualified Code(s): I25.10 - Atherosclerotic heart disease of [place] coronary artery without angina pectoris
[2018-05-30] MEDS: Pregabalin 25 MG CAPSULE PO SCH ×2 (08:23→19:58)
[2018-05-30] MEDS: traMADol 50 MG TABLET PO PRN (08:23)
[2018-05-30] MEDS: cefTRIAXone 2,000 MG in Water for inj. (sterile) 20 ML 20 ML IVP SCH (08:24)
[2018-05-30] MEDS: Famotidine 20 MG TABLET PO SCH ×2 (08:24→16:55)
[2018-05-30] MEDS: Loratadine 10 MG TABLET PO SCH (08:24)
[2018-05-30] MEDS: Fluticasone Propionate Nasal 50 MCG/SPRAY BOTTLE NS SCH (08:33)
[2018-05-30] MEDS ORDERED: *HR* FentaNYL (PF) 100 MCG/2 ML VIAL IVP ONE (08:40)
[2018-05-30] MEDS ORDERED: *HR* HYDROmorphone (PF) 1 MG/ML SYRINGE IVP ONE (10:04)
--- NOTE | 2018-05-30 11:23 | Event Note ---
Date of Encounter: 05/30/18 Time of Encounter: 11:19 Patient was seen and examined. Agree with the progress note as written by the resident physician. issues with pain control this morning. Better with 1 mg IV dilaudid. She is s/p I&D of L BKA, removal of cement plug of left tibia, insertion of abx beads into left tibia, and wound closur. Patient was admitted initially with suspected left BKA stump infection. MRI showed large fluid collection measuring 2.1 x 3.8 x 2.0 cm compatible with a large abscess. 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 Initially seen by orthopedics and aspiration of the distal tibia cyst was done. Cultures came back positive for Serratia marcescens. ID were consulted and eventually orthopedics have decided to take patient to the OR for I&D of the left BKA stump with removal of previously placed cement plug in the tibia. Patient has been maintained on different IV antibiotics and currently is on IV ceftriaxone. GEN: NAD CVS: RRR. S1, S2, No m/r/g RESP: CTAB ABD: Soft, NT, ND, +BS EXT: No edema. 2+ DP. No rashes. Left BKA noted NEURO: Nonfocal Will try to achieve better pain control. Continue IV ceftriaxone. Fluid aspiration cultures are positive for Serratia marcescens Blood culture from 05/21 are negative today. We will monitor. Continue home meds DVT prophylaxis
[2018-05-30 13:41] LABS: Basophils % 0.2 %; Hematocrit 33.9 % (35.3-44.9); Hemoglobin 10.8 g/dL (11.5-15.4); Immature Granulocytes % 0.6 % (0-4); Lymphocytes # 1.4 K/mcL (0.6-4.6); Lymphocytes % 14.3 %; Mean Corpuscular HGB Conc 31.9 g/dL (31.6-35.5); Mean Corpuscular Hemoglobin 25.7 pg (28.0-33.3); Mean Corpuscular Volume 80.5 fL (83.0-100.0); Mean Platelet Volume 9.8 fL (9.4-12.4); Monocytes # 0.4 K/mcL (0.0-1.3); Monocytes % 4.1 %; Neutrophils # 7.8 K/mcL (1.6-8.9); Platelet Count 264 K/mcL (140-400); Red Blood Count 4.21 M/mcL (3.82-4.97); Red Cell Distribution Width 14.5 % (11.5-14.5); Segmented Neutrophils % 80.8 %
[2018-05-30] MEDS: *HR* HYDROmorphone (PF) 1 MG/ML SYRINGE IVP PRN ×2 (15:13→19:57)
[2018-05-30] MEDS: rOPINIRole 3 MG, rOPINIRole 2 MG PO SCH (19:57)
[2018-05-30] MEDS: Ziprasidone 80 MG CAPSULE PO SCH (19:58)
[2018-05-30] MEDS: Insulin DETEMIR 100 UNIT/ML X5UNITS SQ SCH (19:59)
--- NOTE | 2018-05-30 21:09 | Orthopedics Progress Note ---
Date of Encounter: 05/30/18 Time of Encounter: 21:06 Subjective Principal diagnosis: Left BKA infection Interval history: 05/23/2018. Patient states the left BKA is feeling better. Less swelling and less pain. Denies chills fevers etc. Vital signs are stable. Patient is afebrile. Stump appears stable with a cystic area distally over the stump. This is over the tibial. No evidence of drainage. No significant swelling about the knee. MRI of the BKA was reviewed. There is fluid consistent with the clinical appearance. There are marked changes within the tibia at the level of the amputation site. Findings are consistent with osteomyelitis of the tibia proper. There are some subchondral marrow edema changes seen in the medial tibial plateau. Unclear if these are related to arthritis or an infectious process. White blood cell count remains normal. Impression: Suspected osteomyelitis left BKA stump. Recommendation: Had an extremely long discussion with the patient regarding the history of the amputation as well as the treatment delivered thus far. 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 It appears that she did well until 6 or 8 months ago when she had a revision of the BKA due to bony overgrowth. It does not appear that antibiotics were utilized at that time. The presence of the bone cement in the distal tibia is puzzling in that light. The patient states that she is having problems with fluid and swelling for probably the past 2 months. She states that beginning of the complaints she was on antibiotics but has been off antibiotics for probably a month. She has been on IV antibiotics for 2 days now with improvement but persistent swelling in the stump tip. I discussed with the patient and I suspect she has several options and none of these are urgent as she is not septic Andrei dealing with a draining wound. Could continue to treat her slowly with IV antibiotics I do not feel that this is going to try to eradicate the problem and we do not have a organism. The other option would be to "clean up the infection with a potential revision of the BKA, I discussed with the patient that this is very unpredictable and could not guarantee her success. The potentially more definitive treatment would be proceeding to AKA with the difficulty in ambulating with an AKA prosthesis. After much discussion we elected to proceed with an aspiration of the distal tibia. Informed consent was obtained and utilizing a Betadine prep the cystic area was entered and aspirated of approximately 15 mL of a cloudy pink thick fluid. Cultures were obtained. Discussed with the patient that information gathered from this culture could help in decision making. Also discussed that this may not provide an answer as she has been on antibiotics for a period of time and the culture results may be skewed. Other option would be to have additional input, probably from infectious disease to get an opinion as to further treatment. 05/24/2018. Patient appears very comfortable. Has decided she would like to proceed with an above-knee amputation to "eliminate the infection" Vital signs are stable. Patient is afebrile. Stump is clean and dry. No drainage. Minimal edema. Sensitive to touch and palpation. Hemoglobin is stable at 11. Normal white count. Sedimentation rate has dropped to 45 from 62. CRP has dropped from 16 to 15. Aspiration results are not available at thi s time. Impression: Infection left BKA stump, possible osteomyelitis. Recommendations: Discussed with the patient that I would not recommend any urgent surgery. Discussed with the patient that I would recommend an infectious disease consultation to get additional input and I would like to review her previous surgical procedures further. I am puzzled as to the presence of a bone plug in the distal tibia, question if this was a antibiotic impregnated plug that was inserted with the intention of having it removed. I would also wait until we have some definition of the organism we are currently treating. Discussed with the patient that the culture results may be negative due to her antibiotic use. 05/25/2018. Patient states the pain is unchanged. Denies any drainage. States she was started on Neurontin. Vital signs are stable. Patient is afebrile. White blood cell count is normal. Hemoglobin stable. Stump is improved. Much less edema. No drainage. Aspirate cultures show a preliminary a gram-negative wong. Impression: Left BKA stump infection, suspected osteomyelitis. Preliminary cultures revealed gram-negative wong. Recommendation: Appreciate infectious disease input. Will await final culture results before deciding on decision in regards to surgical intervention. Discussed with the patient a gram-negative rods extremely difficult to eradicate from bone and the patient may require AKA for more definitive treatment without an absolute guarantee that the infection has been eradicated. Patient understands and agrees with care as outlined. 05/26/2018. Patient continues to complain of left BKA stump pain. States that gabapentin is giving her little relief. Vital signs are stable. Patient is afebrile. Stump looks excellent with no evidence of drainage. No erythema induration or edema. Question the presence of fluid in the distal stump. Culture has grown Serratia. Blood cell count has been normal. Impression, left BKA stump infection. Recommendations. Had a long discussion with the patient regarding the potential treatment options available for her. Discussed with her that the AKA could not guarantee her that she would not have further problems and putting crease her ambulation difficulties and require much more energy expenditure. Discussed that still waiting operative reports from [facility] in regards to the treatment rendered thus far. Seeking input from infectious disease if they feel that this infection can be treated without further loss of tissue. 05/27/2018. Patient continues to have left stump pain. No drainage. Vital signs remained stable. Patient is afebrile. White blood cell count remains normal. Platelet count normal. Hemoglobin stable at about 11 g. Left sugars continue to be high. Impression: Left BKA stump infection, probable osteomyelitis of tibia Recommendation: Had a long discussion again with the patient in regards to the treatment options available. Have not been able to successfully identify the exact surgical procedure and the treatment plan wemih patient had a revision surgery of her BKA at [facility]. I suspect she had a cement plug placed into the tibia with antibiotic impregnation to deliver high-dose antibiotics for a short period of time. Puzzled as to why this would remain. He currently is a foreign body and offers no treatment in regards to her current infection. The patient s poke with her prosthesis who recommended patient attempt to save the knee joint. I discussed with the patient that this is a viable option and would require at least one and possibly more surgeries. First step would be to debride the wound and removed the cement plug. Would probably consider placing absorbable antibiotic beads and utilize IV antibiotics for a minimum of 6 weeks. Patient is aware that this may not be curative and she may ultimately require an AKA. Surgery time is not going to be available tomorrow, the earliest would possibly be Friday or over the weekend. We will proceed when OR time is available. We will continue IV antibiotics as per infectious disease. 05/28/2018. Patient continues to complain of pain in her left BKA stump. vital signs are stable patient remains afebrile. White blood cell count remains normal. Kidney function is normal. Blood sugars appear to be better controlled at this time. BKA stump is improved. No evidence of drainage. Minimal edema. No evidence of fluctuance. Patient remains quite tender. Impression: Left BKA stump infection, probable osteomyelitis. Plan: After much discussion patient has elected to proceed with irrigation and debridement of the BKA stump with removal of the previously placed cement plug in the tibia. I have been unable to find the operative report in regards to how or when the cement plug was placed. Discussed with the patient that its removal would hopefully allow us to more definitively treat the infection. We will proceed with an irrigation debridement with removal of the cement plug and probably packing with antibiotic beads. This will also require minimum of 6 weeks of postoperative IV antibiotics. Patient is aware that this may not definitively treat the infection she may require further surgery including the possibility of conversion to an AKA. Informed consent has been signed. We will proceed with surgery tomorrow as a "add-on" case when operating time is available. 05/30/2018. Patient is feeling better than before surgery. Complains of soreness in the BKA stump. Vital signs are stable. Patient is afebrile. Dressings clean dry and intact. Impression: POD #1 irrigation and debridement left BKA with placement of antibiotic beads Recommendation: Discussed the patient's surgical findings and the proposed treatment. We will do dressing change tomorrow. Continue with IV antibiotics per infectious disease service for at least 6 weeks pending response to treat ment. Discussed with patient that further surgery may be necessary depending upon response to surgery and IV antibiotics. Objective Vital signs: Vital Signs Temp Pulse Resp BP Pulse Ox 05/30/18 20:23 96 05/30/18 19:57 98.0 F 78 16 158/78 96 05/30/18 15:21 98.6 F 93 16 150/76 95 05/30/18 11:24 97.7 F 93 17 151/68 98 05/30/18 10:08 90 135/82 05/30/18 08:03 97.7 F 69 18 135/78 94 05/30/18 03:51 97.9 F 101 15 153/88 98 05/30/18 03:26 98.6 F 95 16 147/81 94 05/30/18 02:30 98.5 F 97 16 113/68 93 05/30/18 01:25 98.8 F 98 16 137/92 94 05/30/18 01:00 99.0 F 96 16 155/91 94 05/30/18 00:50 95 05/30/18 00:47 98.3 F 95 16 126/64 93 05/30/18 00:36 98.1 F 94 16 161/81 92 05/30/18 00:35 98.2 F 100 16 161/81 93 05/30/18 00:15 98.2 F 97 18 146/81 95 05/30/18 00:00 97.9 F 90 20 144/83 96 05/29/18 23:50 87 18 146/88 95 05/29/18 23:40 93 20 147/101 95 05/29/18 23:30 97.2 F L 92 23 142/94 95 05/29/18 23:20 94 24 146/92 95 05/29/18 23:10 96 20 142/95 95 05/29/18 23:05 97 24 129/79 95 05/29/18 23:00 97.9 F 105 20 136/91 93 Intake and Output 05/30/18 05/30/18 05/30/18 07:59 15:59 23:59 Intake Total 50 / 50 360 / 360 0 / 0 Output Total 200 / 200 0 / 0 Balance 50 / 50 160 / 160 0 / 0 Intake: IV Fluids 50 / 50 Ofirmev 1,000 mg/100 ml 500 mg 50 / 50 In 50 ml @ 200 mls/hr IVPB Q6HR PRN Rx#:[id number] Oral 360 / 360 0 / 0 Output: Urine 200 / 200 0 / 0 Other: Meal Breakfast Percent of Meal Consumed 90% Stool Size Moderate Stool Consistency formed Stool Color Brown # Voids 1 2 Blood Glucose* 287 177 152 - Labs CBC & BMP: 05/30/18 13:14 05/30/18 01:10 Labs: Abnormal lab results Hgb 10.8 g/dL (11.5-15.4) L 05/30/18 13:14 Hct 33.9 % (35.3-44.9) L 05/30/18 13:14 MCV 80.5 fL (83.0-100.0) L 05/30/18 13:14 MCH 25.7 pg (28.0-33.3) L 05/30/18 13:14 ESR 45 mm/hr (0-15) H 05/24/18 06:43 Glucose 208 mg/dL (70-105) H 05/30/18 01:10 POC Glucose 195 mg/dL (70-99) H 05/30/18 16:48 C-Reactive Protein 15 mg/L (Less than 10) H 05/24/18 06:43 Vancomycin Trough 14 mcg/mL (5-10) H 05/25/18 20:38 Consult Discharge Plan - Plan Referrals: Shoshana Davis MD [Primary Care Provider] -
[2018-05-31 03:59] LABS: Basophils % 0.3 %; Eosinophils % 0.1 %; Hematocrit 32.1 % (35.3-44.9); Hemoglobin 10.3 g/dL (11.5-15.4); Immature Granulocytes % 0.2 % (0-4); Lymphocytes # 2.9 K/mcL (0.6-4.6); Lymphocytes % 29.3 %; Mean Corpuscular HGB Conc 32.1 g/dL (31.6-35.5); Mean Corpuscular Hemoglobin 26.2 pg (28.0-33.3); Mean Corpuscular Volume 81.7 fL (83.0-100.0); Mean Platelet Volume 9.8 fL (9.4-12.4); Monocytes # 0.5 K/mcL (0.0-1.3); Monocytes % 5.5 %; Neutrophils # 6.3 K/mcL (1.6-8.9); Platelet Count 239 K/mcL (140-400); Red Blood Count 3.93 M/mcL (3.82-4.97); Red Cell Distribution Width 14.9 % (11.5-14.5); Segmented Neutrophils % 64.6 %
[2018-05-31 04:17] LABS: Alanine Aminotransferase 10 Units/L (7-52); Alkaline Phosphatase 89 Units/L (34-104); Aspartate Amino Transferase 12 Units/L (13-39); BUN/Creatinine Ratio 22 (6-26); Bilirubin,Total 0.3 mg/dL (0.3-1.0); Blood Urea Nitrogen 19 mg/dL (6-20); Calcium 9.1 mg/dL (8.6-10.3); Carbon Dioxide 28 mEq/L (23-29); Chloride 99 mEq/L (98-107); Glucose 199 mg/dL (70-105); Osmolality,Calculated 292 (280-300); Potassium 3.8 mEq/L (3.5-5.1); Sodium 137 mEq/L (136-145); Total Protein 6.6 g/dL (6.4-8.9); eGFR For Non-African Americans > 60 (> 60)
[2018-05-31 04:25] LABS: Albumin 3.5 g/dL (3.5-5.7); Albumin/Globulin Ratio 1.1 (1.1-2.2); Globulin 3.1 g/dL (2.4-3.5)
[2018-05-31] MEDS: *HR* Heparin 5,000 UNIT/ML VIAL SQ SCH ×2 (06:18→17:38)
--- NOTE | 2018-05-31 08:19 | Internal Med Progress Note ---
Hospitalist Progress Note - Encounter Date of Encounter: 05/31/18 Time of Encounter: 08:19 - Subjective Interval History: Patient seen and evaluated at the bedside. She reports some improvement in her left stump pain, though she does currently rate her discomfort as 8/10. Patient reports that she has been eating well, and has continued to have frequent bowel movements despite continued use of opioid medications. She denies any acute complaints or concerns at this time. - Exam Vitals: Temp Pulse Resp BP Pulse Ox 98.3 F 58 16 96/55 96 05/31/18 06:30 05/31/18 07:46 05/31/18 07:46 05/31/18 07:46 05/31/18 07:46 Exam: GENERAL: Well-developed, well-nourished adult female in no acute distress. HEENT: Atraumatic and normocephalic. CARDIOVASCULAR: Regular rate and rhythm. S1 and S2 present. No murmurs, gallops, or rubs. RESPIRATORY: Clear to auscultation bilaterally. Chest rises and falls symmetrically without accessory muscle use. GASTROINTESTINAL: Abdomen is soft, nontender, nondistended. EXTREMITIES: No clubbing, cyanosis, or edema. Left lower extremity is surgically absent below the knee, with clean dressings in place. SKIN: Warm, dry, and intact. NEUROLOGIC: Alert and oriented x3. Patient is cooperative with exam and answers questions appropriately. No apparent focal deficits. PSYCHIATRIC: Appropriate mood and affect. 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 Patient has had multiple revisions, and has reportedly been having trouble with this for the last several months, with wound care managed by Dr. Veras. Per review of ED documentation, patient reportedly had visible bone with wound drainage at the time of presentation. Initial laboratory studies demonstrated WBC WNL, elevated ESR of 62, and CRP of 16. Blood cultures were obtained, and patient was started on empiric antibiotic therapy with vancomycin and cefepime. X-ray performed on 05/21/18 demonstrated findings highly suspicious for osteomyelitis involving the stump with suggestion of soft tissues tract extending from the lateral skin. Subsequent MRI performed on 05/23/18 demonstrated large rim enhancing fluid collection at the stump measuring 2.1 x 3.8 x 2.0 cm most compatible with large abscess with surrounding subcutaneous in edema and post contrast enhancement consistent with cellulitis. Patient was also found to have osteomyelitis of the distal stump with patchy marrow edema and enhancement extending to the level of the proximal metaphysis highly suspicious for proximal osteomyelitis. Patient was evaluated by orthopedic surgery, who performed aspiration of tibial abscess. Fluid cultures are significant for growth of Serriata marcescens. Patient was started on ertapenem by infectious disease team; however, this has been changed to rocephin in anticipation of discharge home with prolonged antibiotic therapy. Patient underwent incision and drainage/debridement of the left BKA stump, with removal of cement plug in the left tibia and insertion of antibiotic beads with Dr. Fernandez on 05/29/2018. Patient reports continued left stump pain, though she states is improved from yesterday. Plan: - Continue rocephin per ID recommendations. - Repeat and trend daily CBC. - Appreciate orthopedic surgery recommendations and assistance in management of this problem. (2) Leg pain Current Visit: Yes Status: Acute Assessment and Plan: Patient complains of significant lower extremity pain, which she currently rates as 9/10 in intensity. She has been reporting little improvement with oxycodone 10 mg. Patient reports that she takes "whatever she can get" for pain at home, and admits to procuring pain medication from multiple sources. She states that she normally takes Percocet at home, with single doses ranging from 10-30 mg at one time. She states that she has been prescribed tramadol; however, she says that this does not help her pain. Patient describes her pain as "burning" in character, and denies having tried medications for neuropathic pain. Patient did have decrease blood pressures with gabapentin, which was discontinued in favor of lyrica 25mg BID. Patient states that she feels like this is helping her pain; however, she was noted to have decreased BP with systolic in the 90s. Plan: - Continue lyrica 25mg BID with several hours between administration of Lyrica and opioid analgesics to minimize BP effect. - Continue use of Flexeril, oxycodone, and Ultram PRN. (3) Type 2 diabetes mellitus Current Visit: Yes Status: Chronic Assessment and Plan: History of diabetes with long-term use of insulin. - Continue accuchecks and medium-dose SSI ACHS. (4) CAD (coronary artery disease) Current Visit: Yes Status: Chronic Assessment and Plan: - Continue home medications. (5) DVT prophylaxis Current Visit: Yes Status: Acute Assessment and Plan: - Heparin 5000units Q12H. - Time Spent with Patient Total time spent is greater than 50% in coordination of care (as documented) at patient's floor/unit and/or counseling patient: Internal Medicine: Result - Labs CBC & Chem 7: 05/31/18 03:22 05/31/18 03:22 Labs: Short CBC 05/30/18 05/31/18 Range/Units 13:14 03:22 WBC 9.6 9.8 (4.3-11.1) K/mcL Hgb 10.8 L 10.3 L (11.5-15.4) g/dL Hct 33.9 L 32.1 L (35.3-44.9) % Plt Count 264 239 (140-400) K/mcL Neutrophils # 7.8 6.3 (1.6-8.9) K/mcL BMP 05/31/18 03:22 Sodium 137 Potassium 3.8 Chloride 99 Carbon Dioxide 28 BUN 19 Creatinine 0.86 Glucose 199 H Calcium 9.1 Liver Function 05/31/18 Range/Units 03:22 Total Bilirubin 0.3 (0.3-1.0) mg/dL AST 12 L (13-39) Units/L ALT 10 (7-52) Units/L Alkaline Phosphatase 89 (34-104) Units/L Albumin 3.5 (3.5-5.7) g/dL Consult Discharge Plan - Plan Referrals: Shoshana Davis MD [Primary Care Provider] - (1) Osteomyelitis Qualifiers: Osteomyelitis type: acute hematogenous Osteomyelitis location: tibia Laterality: left Qualified Code(s): M86.062 - Acute hematogenous osteomyelitis, left tibia and fibula (2) Leg pain Qualifiers: Laterality: left Qualified Code(s): M79.605 - Pain in left leg (3) Type 2 diabetes mellitus Qualifiers: Diabetes mellitus prison insulin use: with prison use Diabetes mellitus complication status: with skin complications Diabetes mellitus complication detail: with other skin complication Qualified Code(s): E11.628 - Type 2 diabetes mellitus with other skin complications; 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 transplanted heart: [place] heart Associated angina: without angina Qualified Code(s): I25.10 - Atherosclerotic heart disease of [place] coronary artery without angina pectoris
[2018-05-31] MEDS: Acetaminophen IV 500 MG/50 ML INFUS..BTL IVPB PRN (09:02)
--- NOTE | 2018-05-31 09:46 | Event Note ---
Date of Encounter: 05/31/18 Time of Encounter: 09:42 Patient was seen and examined. Agree with the progress note as written by the resident physician. No acute events. She is s/p I&D of L BKA, removal of cement plug of left tibia, insertion of abx beads into left tibia, and wound closur. Patient was admitted initially with suspected left BKA stump infection. MRI showed large fluid collection measuring 2.1 x 3.8 x 2.0 cm compatible with a large abscess. 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 Initially seen by orthopedics and aspiration of the distal tibia cyst was done. Cultures came back positive for Serratia marcescens. ID were consulted and eventually orthopedics have decided to take patient to the OR for I&D of the left BKA stump with removal of previously placed cement plug in the tibia. Patient has been maintained on different IV antibiotics and currently is on IV ceftriaxone. GEN: NAD CVS: RRR. S1, S2, No m/r/g RESP: CTAB ABD: Soft, NT, ND, +BS EXT: No edema. 2+ DP. No rashes. Left BKA noted NEURO: Nonfocal c/w pain control. Continue IV ceftriaxone. Fluid aspiration cultures are positive for Serratia marcescens Blood culture from 05/21 are negative today. We will monitor. Continue home meds DVT prophylaxis
[2018-05-31] MEDS: Pregabalin 25 MG CAPSULE PO SCH ×2 (09:57→21:45)
[2018-05-31] MEDS: traMADol 50 MG TABLET PO PRN ×2 (09:57→15:39)
[2018-05-31] MEDS: Famotidine 20 MG TABLET PO SCH ×2 (09:58→15:38)
[2018-05-31] MEDS: cefTRIAXone 2,000 MG in Water for inj. (sterile) 20 ML 20 ML IVP SCH (09:58)
[2018-05-31] MEDS: Loratadine 10 MG TABLET PO SCH (09:58)
[2018-05-31] MEDS: Insulin LISPRO 300 UNITS/3 ML VIAL SQ SCH ×4 (10:04→21:52)
[2018-05-31] MEDS: Fluticasone Propionate Nasal 50 MCG/SPRAY BOTTLE NS SCH (10:36)
[2018-05-31] MEDS: *HR* OxyCODONE Immed Rel 5 MG TABLET PO PRN ×3 (12:07→21:44)
--- NOTE | 2018-05-31 14:20 | Orthopedics Progress Note ---
Date of Encounter: 05/31/18 Time of Encounter: 14:17 Subjective Principal diagnosis: Left BKA infection Interval history: 05/23/2018. Patient states the left BKA is feeling better. Less swelling and less pain. Denies chills fevers etc. Vital signs are stable. Patient is afebrile. Stump appears stable with a cystic area distally over the stump. This is over the tibial. No evidence of drainage. No significant swelling about the knee. MRI of the BKA was reviewed. There is fluid consistent with the clinical appearance. There are marked changes within the tibia at the level of the amputation site. Findings are consistent with osteomyelitis of the tibia proper. There are some subchondral marrow edema changes seen in the medial tibial plateau. Unclear if these are related to arthritis or an infectious process. White blood cell count remains normal. Impression: Suspected osteomyelitis left BKA stump. Recommendation: Had an extremely long discussion with the patient regarding the history of the amputation as well as the treatment delivered thus far. 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 It appears that she did well until 6 or 8 months ago when she had a revision of the BKA due to bony overgrowth. It does not appear that antibiotics were utilized at that time. The presence of the bone cement in the distal tibia is puzzling in that light. The patient states that she is having problems with fluid and swelling for probably the past 2 months. She states that beginning of the complaints she was on antibiotics but has been off antibiotics for probably a month. She has been on IV antibiotics for 2 days now with improvement but persistent swelling in the stump tip. I discussed with the patient and I suspect she has several options and none of these are urgent as she is not septic Andrei dealing with a draining wound. Could continue to treat her slowly with IV antibiotics I do not feel that this is going to try to eradicate the problem and we do not have a organism. The other option would be to "clean up the infection with a potential revision of the BKA, I discussed with the patient that this is very unpredictable and could not guarantee her success. The potentially more definitive treatment would be proceeding to AKA with the difficulty in ambulating with an AKA prosthesis. After much discussion we elected to proceed with an aspiration of the distal tibia. Informed consent was obtained and utilizing a Betadine prep the cystic area was entered and aspirated of approximately 15 mL of a cloudy pink thick fluid. Cultures were obtained. Discussed with the patient that information gathered from this culture could help in decision making. Also discussed that this may not provide an answer as she has been on antibiotics for a period of time and the culture results may be skewed. Other option would be to have additional input, probably from infectious disease to get an opinion as to further treatment. 05/24/2018. Patient appears very comfortable. Has decided she would like to proceed with an above-knee amputation to "eliminate the infection" Vital signs are stable. Patient is afebrile. Stump is clean and dry. No drainage. Minimal edema. Sensitive to touch and palpation. Hemoglobin is stable at 11. Normal white count. Sedimentation rate has dropped to 45 from 62. CRP has dropped from 16 to 15. Aspiration results are not available at thi s time. Impression: Infection left BKA stump, possible osteomyelitis. Recommendations: Discussed with the patient that I would not recommend any urgent surgery. Discussed with the patient that I would recommend an infectious disease consultation to get additional input and I would like to review her previous surgical procedures further. I am puzzled as to the presence of a bone plug in the distal tibia, question if this was a antibiotic impregnated plug that was inserted with the intention of having it removed. I would also wait until we have some definition of the organism we are currently treating. Discussed with the patient that the culture results may be negative due to her antibiotic use. 05/25/2018. Patient states the pain is unchanged. Denies any drainage. States she was started on Neurontin. Vital signs are stable. Patient is afebrile. White blood cell count is normal. Hemoglobin stable. Stump is improved. Much less edema. No drainage. Aspirate cultures show a preliminary a gram-negative wong. Impression: Left BKA stump infection, suspected osteomyelitis. Preliminary cultures revealed gram-negative wong. Recommendation: Appreciate infectious disease input. Will await final culture results before deciding on decision in regards to surgical intervention. Discussed with the patient a gram-negative rods extremely difficult to eradicate from bone and the patient may require AKA for more definitive treatment without an absolute guarantee that the infection has been eradicated. Patient understands and agrees with care as outlined. 05/26/2018. Patient continues to complain of left BKA stump pain. States that gabapentin is giving her little relief. Vital signs are stable. Patient is afebrile. Stump looks excellent with no evidence of drainage. No erythema induration or edema. Question the presence of fluid in the distal stump. Culture has grown Serratia. Blood cell count has been normal. Impression, left BKA stump infection. Recommendations. Had a long discussion with the patient regarding the potential treatment options available for her. Discussed with her that the AKA could not guarantee her that she would not have further problems and putting crease her ambulation difficulties and require much more energy expenditure. Discussed that still waiting operative reports from [facility] in regards to the treatment rendered thus far. Seeking input from infectious disease if they feel that this infection can be treated without further loss of tissue. 05/27/2018. Patient continues to have left stump pain. No drainage. Vital signs remained stable. Patient is afebrile. White blood cell count remains normal. Platelet count normal. Hemoglobin stable at about 11 g. Left sugars continue to be high. Impression: Left BKA stump infection, probable osteomyelitis of tibia Recommendation: Had a long discussion again with the patient in regards to the treatment options available. Have not been able to successfully identify the exact surgical procedure and the treatment plan wetnh patient had a revision surgery of her BKA at [facility]. I suspect she had a cement plug placed into the tibia with antibiotic impregnation to deliver high-dose antibiotics for a short period of time. Puzzled as to why this would remain. He currently is a foreign body and offers no treatment in regards to her current infection. The patient s poke with her prosthesis who recommended patient attempt to save the knee joint. I discussed with the patient that this is a viable option and would require at least one and possibly more surgeries. First step would be to debride the wound and removed the cement plug. Would probably consider placing absorbable antibiotic beads and utilize IV antibiotics for a minimum of 6 weeks. Patient is aware that this may not be curative and she may ultimately require an AKA. Surgery time is not going to be available tomorrow, the earliest would possibly be Friday or over the weekend. We will proceed when OR time is available. We will continue IV antibiotics as per infectious disease. 05/28/2018. Patient continues to complain of pain in her left BKA stump. vital signs are stable patient remains afebrile. White blood cell count remains normal. Kidney function is normal. Blood sugars appear to be better controlled at this time. BKA stump is improved. No evidence of drainage. Minimal edema. No evidence of fluctuance. Patient remains quite tender. Impression: Left BKA stump infection, probable osteomyelitis. Plan: After much discussion patient has elected to proceed with irrigation and debridement of the BKA stump with removal of the previously placed cement plug in the tibia. I have been unable to find the operative report in regards to how or when the cement plug was placed. Discussed with the patient that its removal would hopefully allow us to more definitively treat the infection. We will proceed with an irrigation debridement with removal of the cement plug and probably packing with antibiotic beads. This will also require minimum of 6 weeks of postoperative IV antibiotics. Patient is aware that this may not definitively treat the infection she may require further surgery including the possibility of conversion to an AKA. Informed consent has been signed. We will proceed with surgery tomorrow as a "add-on" case when operating time is available. 05/30/2018. Patient is feeling better than before surgery. Complains of soreness in the BKA stump. Vital signs are stable. Patient is afebrile. Dressings clean dry and intact. Impression: POD #1 irrigation and debridement left BKA with placement of antibiotic beads Recommendation: Discussed the patient's surgical findings and the proposed treatment. We will do dressing change tomorrow. Continue with IV antibiotics per infectious disease service for at least 6 weeks pending response to treat ment. Discussed with patient that further surgery may be necessary depending upon response to surgery and IV antibiotics. 05/31/2018. Patient POD #2 I&D left BKA with removal of cement plug and inse rtion of antibiotic beads (absorbable) patient feeling better. Vital signs are stable. Patient is afebrile. White blood cell count is normal. Hemoglobin 10.3. Platelet count is normal. BKA stump healthy. Michelle drain removed. New stump dressing applied. Impression: POD #2 I&D left BKA Recommendations: Recommended patient resume use of a stump lead ramp service man. This can begin probably in 24-48 hours once the drain site has closed. Instructed the patient to not use her prosthesis until I given her the approval. We will continue with IV antibiotics per infectious disease. If the patient is discharged soon, will need follow-up with me in about 2 weeks' time. Objective Vital signs: Vital Signs Temp Pulse Resp BP Pulse Ox 05/31/18 12:03 70 18 117/63 98 05/31/18 10:00 98.5 F 64 16 97/58 96 05/31/18 07:46 58 16 96/55 96 05/31/18 06:30 98.3 F 61 16 99/67 95 05/31/18 04:28 98.1 F 63 18 98/60 96 05/30/18 22:00 98.4 F 81 16 148/84 95 05/30/18 20:23 96 05/30/18 19:57 98.0 F 78 16 158/78 96 05/30/18 15:21 98.6 F 93 16 150/76 95 Intake and Output 05/30/18 05/31/18 05/31/18 23:59 07:59 15:59 Intake Total 0 / 0 0 / 0 480 / 480 Output Total 0 / 0 0 / 0 300 / 300 Balance 0 / 0 0 / 0 180 / 180 Intake: Oral 0 / 0 0 / 0 480 / 480 Output: Urine 0 / 0 0 / 0 300 / 300 Other: Meal Dinner Breakfast Percent of Meal Consumed 45% 60% # Voids 1 1 Weight 85.8 kg Blood Glucose* 152 150 240 Patient Weight 05/31/18 23:59 Weight 85.8 kg - Labs CBC & BMP: 05/31/18 03:22 05/31/18 03:22 Labs: Abnormal lab results Hgb 10.3 g/dL (11.5-15.4) L 05/31/18 03:22 Hct 32.1 % (35.3-44.9) L 05/31/18 03:22 MCV 81.7 fL (83.0-100.0) L 05/31/18 03:22 MCH 26.2 pg (28.0-33.3) L 05/31/18 03:22 RDW 14.9 % (11.5-14.5) H 05/31/18 03:22 ESR 45 mm/hr (0-15) H 05/24/18 06:43 Glucose 199 mg/dL (70-105) H 05/31/18 03:22 POC Glucose 195 mg/dL (70-99) H 05/30/18 16:48 AST 12 Units/L (13-39) L 05/31/18 03:22 C-Reactive Protein 15 mg/L (Less than 10) H 05/24/18 06:43 Vancomycin Trough 14 mcg/mL (5-10) H 05/25/18 20:38 Consult Discharge Plan - Plan Referrals: Shoshana Davis MD [Primary Care Provider] -
[2018-05-31] MEDS: rOPINIRole 3 MG, rOPINIRole 2 MG PO SCH (21:45)
[2018-05-31] MEDS: Ziprasidone 80 MG CAPSULE PO SCH (21:45)
[2018-05-31] MEDS: Insulin DETEMIR 100 UNIT/ML X5UNITS SQ SCH (21:52)
[2018-06-01] MEDS: *HR* Heparin 5,000 UNIT/ML VIAL SQ SCH (05:17)
[2018-06-01] MEDS: *HR* OxyCODONE Immed Rel 5 MG TABLET PO PRN ×3 (05:18→13:48)
[2018-06-01] MEDS: Acetaminophen IV 500 MG/50 ML INFUS..BTL IVPB PRN (07:18)
[2018-06-01 07:28] LABS: Basophils % 0.4 %; Eosinophils # 0.1 K/mcL (0.0-0.6); Eosinophils % 1.3 %; Hematocrit 33.7 % (35.3-44.9); Hemoglobin 10.7 g/dL (11.5-15.4); Immature Granulocytes % 0.1 % (0-4); Lymphocytes # 2.6 K/mcL (0.6-4.6); Lymphocytes % 37.6 %; Mean Corpuscular HGB Conc 31.8 g/dL (31.6-35.5); Mean Corpuscular Hemoglobin 26.1 pg (28.0-33.3); Mean Corpuscular Volume 82.2 fL (83.0-100.0); Mean Platelet Volume 9.5 fL (9.4-12.4); Monocytes # 0.4 K/mcL (0.0-1.3); Monocytes % 5.5 %; Neutrophils # 3.8 K/mcL (1.6-8.9); Platelet Count 207 K/mcL (140-400); Red Cell Distribution Width 14.8 % (11.5-14.5); Segmented Neutrophils % 55.1 %
[2018-06-01 07:49] LABS: BUN/Creatinine Ratio 21 (6-26); Blood Urea Nitrogen 17 mg/dL (6-20); Carbon Dioxide 30 mEq/L (23-29); Chloride 100 mEq/L (98-107); Glucose 242 mg/dL (70-105); Osmolality,Calculated 298 (280-300); Potassium 3.9 mEq/L (3.5-5.1); Sodium 139 mEq/L (136-145); eGFR For Non-African Americans > 60 (> 60)
--- NOTE | 2018-06-01 08:02 | Internal Med Progress Note ---
Hospitalist Progress Note - Encounter Date of Encounter: 06/01/18 Time of Encounter: 08:02 - Exam Vitals: Temp Pulse Resp BP Pulse Ox 97.8 F 87 18 107/70 95 06/01/18 06:36 06/01/18 06:36 06/01/18 06:36 06/01/18 06:36 06/01/18 06:36 - Assessment and Plan (1) Osteomyelitis Current Visit: Yes Status: Acute (2) Leg pain Current Visit: Yes Status: Acute (3) Type 2 diabetes mellitus Current Visit: Yes Status: Chronic (4) CAD (coronary artery disease) Current Visit: Yes Status: Chronic (5) DVT prophylaxis Current Visit: Yes Status: Acute - Time Spent with Patient Total time spent is greater than 50% in coordination of care (as documented) at patient's floor/unit and/or counseling patient: Internal Medicine: Result - Labs CBC & Chem 7: 06/01/18 07:16 06/01/18 07:16 Labs: Short CBC 06/01/18 Range/Units 07:16 WBC 6.9 (4.3-11.1) K/mcL Hgb 10.7 L (11.5-15.4) g/dL Hct 33.7 L (35.3-44.9) % Plt Count 207 (140-400) K/mcL Neutrophils # 3.8 (1.6-8.9) K/mcL BMP 06/01/18 07:16 Sodium 139 Potassium 3.9 Chloride 100 Carbon Dioxide 30 H BUN 17 Creatinine 0.80 Glucose 242 H Calcium 9.0 Consult Discharge Plan - Plan Referrals: Shoshana Davis MD [Primary Care Provider] - (1) Osteomyelitis Qualifiers: Osteomyelitis type: acute hematogenous Osteomyelitis location: tibia Laterality: left Qualified Code(s): M86.062 - Acute hematogenous osteomyelitis, left tibia and fibula (2) Leg pain Qualifiers: Laterality: left Qualified Code(s): M79.605 - Pain in left leg (3) Type 2 diabetes mellitus Qualifiers: 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 t ransplanted heart: [place] heart Associated angina: without angina Qualified Code(s): I25.10 - Atherosclerotic heart disease of [place] coronary artery without angina pectoris
[2018-06-01] MEDS: Pregabalin 25 MG CAPSULE PO SCH (09:49)
[2018-06-01] MEDS: Famotidine 20 MG TABLET PO SCH (09:50)
[2018-06-01] MEDS: Loratadine 10 MG TABLET PO SCH (09:50)
[2018-06-01] MEDS: cefTRIAXone 2,000 MG in Water for inj. (sterile) 20 ML 20 ML IVP SCH (09:50)
[2018-06-01] MEDS: Fluticasone Propionate Nasal 50 MCG/SPRAY BOTTLE NS SCH (09:51)
[2018-06-01] MEDS: Insulin LISPRO 300 UNITS/3 ML VIAL SQ SCH ×2 (09:51→12:26)
--- NOTE | 2018-06-01 11:02 | Infectious Disease Progress No ---
ID Progress Note Date of Encounter: 06/01/18 Time of Encounter: 09:45 - Subjective Subjective: Patient seen and examined at bedside this morning. She underwent incision and drainage with debridement of the left BKA and removal of the cement plug with insertion of antibiotic beads by orthopedic surgery on 05/29. No bony destructive changes were noted intraoperatively and there was no gerardo purulent material either. Since the surgery, the patient has complained of pain at the s urgical site which has been difficult to control. She has remained afebrile and hemodynamically stable, and she has not developed any leukocytosis. She denies any fevers, chills, chest pain, night sweats, shortness of breath, abdominal pain, nausea, vomiting, diarrhea. - Objective CBC & Chem 7: 06/01/18 07:16 06/01/18 07:16 - Exam Vitals: Temp Pulse Resp BP Pulse Ox 98.6 F 91 19 115/73 97 06/01/18 10:38 06/01/18 10:38 06/01/18 10:38 06/01/18 10:38 06/01/18 10:38 Exam: General: resting comfortably out of bed in chair, no acute distress HEENT: head is atraumatic and normocephalic, pupils are equal, EOMI, mucosa moist, external ears and nares are patent Neck: no JVD, trachea midline Chest: symmetrical chest wall rise, no tenderness to palpation Cardiovascular: regular rate and rhythm, no murmurs Respiratory: clear to auscultation bilaterally, no rales ronchi or wheezing Abdomen: soft, nontender, no guarding or rigidity Extremities: Left BKA status post I&D, the extremity is bandaged. The bandages appear dry and intact. Neurological: no obvious focal neurological deficits Psych: pleasant, appropriate mood and affect - Assessment and Plan (1) Osteomyelitis Current Visit: Yes Status: Acute -Osteomyelitis and abscess formation secondary to infected below knee stump -Patient previously failed outpatient treatment with clindamycin -On admission she was not septic, but lactic acid, ESR, and CRP were elevated -Imaging studies revealed osteomyelitis and a large fluid collection at the stump -Initially started on empiric vancomycin and cefepime -vancomycin discontinued after cultures grew GNR -Orthopedic surgery was consulted and the fluid collection was drained and sent for culture -Fluid culture grew serratia, blood cultures NGTD -Patient underwent I&D of the left BKA with removal of the cement plug by orthopedic surgery on 05/29 Plan: -Status post day 3 from I&D left BKA with cement plug removal -Patient will require continued 6 weeks of outpatient antibiotic therapy with follow-up with orthopedic surgery -Continue IV rocephin 2g daily -PICC line placed -Recommend weekly CBC, BUN, Creatinine, ESR, and CRP on discharge and follow up with Infectious disease in 2 weeks Qualifiers: Osteomyelitis type: acute hematogenous Osteomyelitis location: tibia Laterality: left Qualified Code(s): M86.062 - Acute hematogenous osteomyelitis, left tibia and fibula SNOMED Code(s): 28484494 (2) Abscess Current Visit: Yes Status: Acute Drained by orthopedic surgery On rocephin 2g IV daily Patient will require at least 6 weeks of IV antibiotics SNOMED Code(s): 730488162 (3) Type 2 diabetes mellitus Current Visit: Yes Status: Chronic Qualifiers: Diabetes mellitus care home insulin use: with adjunct faculty for medical terminology use Diabetes mellitus complication status: with skin complications Diabetes mellitus complication detail: with other skin complication Qualified Code(s): E11.628 - Type 2 diabetes mellitus with other skin complications; Z79.4 - intermediate frame tender (cu rrent) use of insulin SNOMED Code(s): 71484610 Consult Discharge Plan - Plan Additional Instructions: Follow-up with your PCP in 3-5 days for reevaluation. Follow up with orthopedic surgery and infectious disease an approximately 2 weeks. Have laboratory studies drawn every week. Continue infusion of ceftriaxone 2 g daily for the next 6 weeks. Take Percocet 103 25 mg every 6 hours as needed for severe (10/10) pain. Continue taking Lyrica 25 mg twice daily. Do not take Percocet and Lyrica at the same time, as this may drop your blood pressure and make you dizzy. Make sure to use appropriate fall precautions. Take Flexeril 10 mg every 8 hours as needed for muscle spasms. Continue taking your regular home medications. Return to the emergency department if he have worsening pain, fevers, chills, nausea, vomiting, or if new concerns arise. Referrals: Shoshana Davis MD [Primary Care Provider] - Prescriptions: OxyCODONE/APAP 10/325 [Percocet 10/325 MG] 1 each PO Q6HR PRN 2 Days #8 tablet PRN Reason: Pain RX: cefTRIAXone [Rocephin] 2,000 mg IVPB DAILY #42 vial RX: Cyclobenzaprine [Flexeril] 10 mg PO Q8H PRN #30 tablet PRN Reason: Spasms RX: Pregabalin [Lyrica] 25 mg PO BID 7 Days #14 capsule - Attending Attestation I examined this patient and my medical decision-making was reviewed with the Resident Physician. I agree with the documented findings, disposition and treatment plan as described except to the extent set forth below. Assessment and plan: 1.Osteomyelitis of left BKA causative organism gram-negative wong 5 4 times a day pending 2.Abscess left stump status post I&D 3.Diabetes mellitus type 2 Recommendations: s/p I&D by Dr. Fernandez appreciate intra op findings continue rocephin 2 grams q24 hrs for 6 weeks total weekly CBC, BMP, ESR, CRP F/U with me in clinic in 2 weeks
--- NOTE | 2018-06-01 14:32 | Discharge Summary ---
<Niki Dunne N - Last Filed: 06/01/18 14:57> - NOTES TO OUTPATIENT PROVIDER Notes to Outpatient Provider: Patient was admitted to the hospital for left BKA stump pain and was found to have osteomyelitis and abscess; wound aspirate was significant for growth of Serratia. Patient underwent BKA revision and antibiotic bead placement with Dr. Fernandez. Patient was evaluated by infectious disease team, with recommendation for 6 weeks of antibiotic therapy with Rocephin 2 g daily. She is to follow-up with the surgery in approximately 2 weeks for reevaluation. Per infectious disease, patient is to have weekly CBC, BUN, creatinine, ESR, and CRP. Patient was started on Lyrica 25 mg twice a day during this admission. Date of Encounter: 06/01/18 Time of Encounter: 08:42 - Discharge Diagnosis (1) Osteomyelitis Priority: Primary Status: Acute Qualifiers: Osteomyelitis type: acute hematogenous Osteomyelitis location: tibia Laterality: left Qualified Code(s): M86.062 - Acute hematogenous osteomyelitis, left tibia and fibula (2) Type 2 diabetes mellitus Priority: Secondary Status: Chronic Qualifiers: Diabetes mellitus fdc insulin use: with dye house hand use Diabetes mellitus complication status: with skin complications Diabetes mellitus complication detail: with other skin complication Qualified Code(s): E11.628 - Type 2 diabetes mellitus with other skin complications; 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 transplanted heart: [place] heart Associated angina: without angina Qualified Code(s): I25.10 - Atherosclerotic heart disease of [place] coronary artery without angina pectoris (4) Leg pain Priority: Secondary Status: Acute Qualifiers: Laterality: left Qualified Code(s): M79.605 - Pain in left leg Hospital course: Mrs. Kirby is a 57Yo F with a h/o DM, fibromyalgia, and left lower leg amputation who presented for concerns of infection of the left lower leg at the stump. Pt was found to have osteomyelitis involving the stump on Xray. was significant for multiple abnormalities as follows: (1) Large rim enhancing fluid collection at the stump measuring 2.1 x 3.8 x 2.0 cm most compatible with large abscess given history. Surrounding subcutaneous edema and postcontrast enhancement consistent with cellulitis. (2) Osteomyelitis of the distal stump with patchy marrow edema and postcontrast enhancement extending to the level of the proximal metaphysis. Findings highly suspicious for osteomyelitis proximally. (3) Edema and subchondral signal change of the medial tibial plateau and to a lesser extent the anterior aspect of the medial femoral condyle. Findings may reflect reactive/mechanical marrow edema. Patient underwent bedside aspiration of abscess, which was sent for culture; culture results were positive for growth of Serratia marcescensica. Patient was evaluated by infectious disease team for antibiotic recommendations. Patient was initially on ertapenem; however, this was transitioned to ceftriaxone 2 g daily anticipation of prolonged outpatient antibiotic course. Patient undrwent stump revision and placement of antibiotic beads with Dr. Fernandez, which did not alleviate some of her discomfort. Patient was started on Lyrica 25 mg twice a day for treatment of diabetic neuropathy the, with some improvement in pain. Patient was discharged on ceftriaxone 2 g daily, with planned antibiotic course of 6 weeks. Per infectious disease recommend patient, patient is to have weekly CBC, B1, creatinine, ESR, and CRP. upon discharge, patient was provided with a 2-day prescription for Percocet 103 25 mg every 6 hours when necessary, as well as a seven-day supply of Lyrica 25 mg twice a day. - Time Spent with Patient Total time spent providing and/or coordinating discharge services: - Discharge Medications Prescriptions: New OxyCODONE/APAP 10/325 [Percocet 10/325 MG] 1 each PO Q6HR PRN 2 Days #8 tablet PRN Reason: Pain RX: cefTRIAXone [Rocephin] 2,000 mg IVPB DAILY #42 vial RX: Cyclobenzaprine [Flexeril] 10 mg PO Q8H PRN #30 tablet PRN Reason: Spasms RX: Pregabalin [Lyrica] 25 mg PO BID 7 Days #14 capsule Continue RX: Ziprasidone [Geodon] 160 mg PO HS RX: Montelukast [Singulair] 10 mg PO DAILY RX: Ropinirole HCl [Requip] 5 mg PO HS RX: raNITIdine HCl [Zantac] 150 mg PO BID RX: Estrogens, Conjugated [Premarin] 0.3 mg PO DAILY RX: Paroxetine HCl [Paxil Cr] 37.5 mg PO DAILY RX: Pantoprazole Sodium [Protonix] 40 mg PO DAILY RX: Meloxicam 7.5 mg PO BID PRN PRN Reason: Pain RX: Loratadine [Allergy Relief] 10 mg PO DAILY RX: Insulin Glargine,Hum.rec.anlog [Basaglar Kwikpen U-100] 30 units SQ DAILY RX: SUMAtriptan Succinate [Imitrex] 100 mg PO AD PRN PRN Reason: Migraine Headache RX: Fluticasone Propionate Nasal [Flonase] 2 spray NS 3-4XD RX: Carvedilol [Coreg] 25 mg PO BID RX: Atorvastatin Calcium [Lipitor] 80 mg PO DAILY RX: Allopurinol [Zyloprim 100 MG] 100 mg PO DAILY RX: Albuterol Neb [Proventil Neb] 2.5 mg IH Q6H PRN PRN Reason: Shortness Of Breath RX: Albuterol Sulfate [Albuterol Inhaler] 2 puff IH Q4H PRN PRN Reason: Shortness Of Breath RX: Magic Mouthwash 10 ml PO TID PRN PRN Reason: MOUTH SORES RX: Lisinopril/Hydrochlorothiazide [Zestoretic 20-12.5 mg Tablet] 1 tab PO DAILY Home Medications: RX: Albuterol Neb [Proventil Neb] 2.5 mg IH Q6H PRN 05/22/18 [History] RX: Albuterol Sulfate [Albuterol Inhaler] 2 puff IH Q4H PRN 05/22/18 [History] RX: Allopurinol [Zyloprim 100 MG] 100 mg PO DAILY 05/22/18 [History] RX: Atorvastatin Calcium [Lipitor] 80 mg PO DAILY 05/22/18 [History] RX: Carvedilol [Coreg] 25 mg PO BID 05/22/18 [History] RX: Estrogens, Conjugated [Premarin] 0.3 mg PO DAILY 05/22/18 [History] RX: Fluticasone Propionate Nasal [Flonase] 2 spray NS 3-4XD 05/22/18 [History] RX: Insulin Glargine,Hum.rec.anlog [Basaglar Kwikpen U-100] 30 units SQ DAILY 05/22/18 [History] RX: Loratadine [Allergy Relief] 10 mg PO DAILY 05/22/18 [History] RX: Meloxicam 7.5 mg PO BID PRN 05/22/18 [History] RX: Montelukast [Singulair] 10 mg PO DAILY 05/22/18 [History] RX: Pantoprazole Sodium [Protonix] 40 mg PO DAILY 05/22/18 [History] RX: Paroxetine HCl [Paxil Cr] 37.5 mg PO DAILY 05/22/18 [History] RX: Ropinirole HCl [Requip] 5 mg PO HS 05/22/18 [History] RX: SUMAtriptan Succinate [Imitrex] 100 mg PO AD PRN 05/22/18 [History] RX: Ziprasidone [Geodon] 160 mg PO HS 05/22/18 [History] RX: raNITIdine HCl [Zantac] 150 mg PO BID 05/22/18 [History] RX: Lisinopril/Hydrochlorothiazide [Zestoretic 20-12.5 mg Tablet] 1 tab PO DAILY 05/23/18 [History] RX: Magic Mouthwash 10 ml PO TID PRN 05/23/18 [History] OxyCODONE/APAP 10/325 [Percocet 10/325 MG] 1 each PO Q6HR PRN 2 Days #8 tablet 06/01/18 [Rx] RX: Cyclobenzaprine [Flexeril] 10 mg PO Q8H PRN #30 tablet 06/01/18 [Rx] RX: Pregabalin [Lyrica] 25 mg PO BID 7 Days #14 capsule 06/01/18 [Rx] RX: cefTRIAXone [Rocephin] 2,000 mg IVPB DAILY #42 vial 06/01/18 [Rx] Allergies/Adverse Reactions: Allergy/AdvReac Type Severity Reaction Status Date / Time acetaminophen Allergy Nausea Verified 05/21/18 18:05 [From Darvocet-N 100] escitalopram [From Lexapro] Allergy Confusion Verified 05/21/18 18:05 latex Allergy See Verified 05/21/18 18:05 Comments levofloxacin [From Levaquin] Allergy Nausea Verified 05/21/18 18:05 [place] Allergy Confusion Verified 05/21/18 18:05 propoxyphene Allergy Nausea Verified 05/21/18 18:05 [From Darvocet-N 100] sumatriptan [From Imitrex] Allergy See Verified 05/21/18 18:05 Comments hydrocodone AdvReac See Verified 05/21/18 18:05 Comments Date of admission: 05/21/18 23:10 Primary care physician: Shoshana Davis MD Consults: 05/21/18 23:23 Consult to Nutrition [CONS] Routine Comment: Consulting Provider: NUTRITION Reason for Dietary Consult: Diet Education 05/21/18 23:50 Consult to Orthopedic Surgery [CONS] Routine Consulting Provider: Thompson Fernandez Reason for Consult: Osteomyelitis of the left extremity stump Call Completed: Yes 05/24/18 16:56 Consult to Infectious Diseases [CONS] Routine Consulting Provider: Infectious Disease Kaycee Reason for Consult: Infected BKA Time Notified: 08:23 Call Completed: Yes 05/29/18 07:13 Consult to Invasive Line Access Team [CONS] Routine Reason for Consult: home atb Line Type: Midline 05/30/18 00:13 Consult to Pantry Goods Maker [CONS] Routine Reason for SW Consult: IV Abx, D/C Discharging clinician: Niki Celeste date of discharge: 06/01/18 - Constitutional Vitals: Temp Pulse Resp BP Pulse Ox 98.6 F 91 19 115/73 97 06/01/18 10:38 06/01/18 10:38 06/01/18 10:38 06/01/18 10:38 06/01/18 10:38 Exam: GENERAL: Well-developed, well-nourished adult female in no acute distress. HEENT: Atraumatic and normocephalic. CARDIOVASCULAR: Regular rate and rhythm. S1 and S2 present. No murmurs, gallops, or rubs. RESPIRATORY: Clear to auscultation bilaterally. Chest rises and falls symmetrically without accessory muscle use. GASTROINTESTINAL: Abdomen is soft, nontender, nondistended. EXTREMITIES: No clubbing, cyanosis, or edema. Left lower extremity is surgically absent below the knee, with clean dressings in place. SKIN: Warm, dry, and intact. NEUROLOGIC: Alert and oriented x3. Patient is cooperative with exam and answers questions appropriately. No apparent focal deficits. PSYCHIATRIC: Appropriate mood and affect. - Patient Status Disposition: Home, Self-Care Condition: Fair Overall status at discharge: patient is progressing back to baseline - Ambulatory Orders Ambulatory Orders: Blood Urea Nitrogen (BUN) [CHEM] Time Frame: 1 Week, Location: Determined By Patient Blood Urea Nitrogen (BUN) [CHEM] Time Frame: 06/08/18, Location: Determined By Patient Blood Urea Nitrogen (BUN) [CHEM] Time Frame: 06/15/18, Location: Determined By Patient Blood Urea Nitrogen (BUN) [CHEM] Time Frame: 06/22/18, Location: Determined By Patient Blood Urea Nitrogen (BUN) [CHEM] Time Frame: 06/29/18, Location: Determined By Patient Complete Blood Count [HEME] Time Frame: 1 Week, Location: Determined By Patient Complete Blood Count [HEME] Time Frame: 06/08/18, Location: Determined By Pa ahsan Complete Blood Count [HEME] Time Frame: 06/15/18, Location: Determined By Patient Complete Blood Count [HEME] Time Frame: 06/22/18, Location: Determined By Patient Complete Blood Count [HEME] Time Frame: 06/29/18, Location: Determined By Patient Creatinine [CHEM] Time Frame: 1 Week, Location: Determined By Patient Creatinine [CHEM] Time Frame: 06/08/18, Location: Determined By Patient Creatinine [CHEM] Time Frame: 06/15/18, Location: Determined By Patient Creatinine [CHEM] Time Frame: 06/22/18, Location: Determined By Patient Creatinine [CHEM] Time Frame: 06/29/18, Location: Determined By Patient Creatinine [CHEM] Time Frame: 07/06/18, Location: Determined By Patient Creatinine [CHEM] Time Frame: 07/13/18, Location: Determined By Patient C-Reactive Protein [CHEM] Time Frame: 1 Week, Location: Determined By Patient C-Reactive Protein [CHEM] Time Frame: 06/08/18, Location: Determined By Patient C-Reactive Protein [CHEM] Time Frame: 06/15/18, Location: Determined By Patient C-Reactive Protein [CHEM] Time Frame: 06/22/18, Location: Determined By Patient C-Reactive Protein [CHEM] Time Frame: 06/29/18, Location: Determined By Patient C-Reactive Protein [CHEM] Time Frame: 07/06/18, Location: Determined By Patient C-Reactive Protein [CHEM] Time Frame: 07/13/18, Location: Determined By Patient Erythrocyte Sedimentation Rate [HEME] Time Frame: 1 Week, Location: Determined By Patient Erythrocyte Sedimentation Rate [HEME] Time Frame: 06/08/18, Location: Determined By Patient Erythrocyte Sedimentation Rate [HEME] Time Frame: 06/15/18, Location: Determined By Patient Erythrocyte Sedimentation Rate [HEME] Time Frame: 06/22/18, Location: Determined By Patient Erythrocyte Sedimentation Rate [HEME] Time Frame: 06/29/18, Location: Determined By Patient Erythrocyte Sedimentation Rate [HEME] Time Frame: 07/06/18, Location: Determined By Patient Erythrocyte Sedimentation Rate [HEME] Time Frame: 07/13/18, Location: Determined By Patient - Discharge Instructions Follow Up With: Shoshana Davis MD [Primary Care Provider] - Additional Instructions: Follow-up with your PCP in 3-5 days for reevaluation. Follow up with orthopedic surgery and infectious disease an approximately 2 weeks. Have laboratory studies drawn every week. Continue infusion of ceftriaxone 2 g daily for the next 6 weeks. Take Percocet 103 25 mg every 6 hours as needed for severe (10/10) pain. Continue taking Lyrica 25 mg twice daily. Do not take Percocet and Lyrica at the same time, as this may drop your blood pressure and make you dizzy. Make sure to use appropriate fall precautions. Take Flexeril 10 mg every 8 hours as needed for muscle spasms. Continue taking your regular home medications. Return to the emergency department if he have worsening pain, fevers, chills, nausea, vomiting, or if new concerns arise. - Diet and Activity Activity: increase activity as tolerated Diet: diabetic diet <Smita Courtney - Last Filed: 06/01/18 15:49> Date of Encounter: 06/01/18 - Discharge Diagnosis (1) Osteomyelitis Status: Acute Qualifiers: Osteomyelitis type: acute hematogenous Osteomyelitis location: tibia Laterality: left Qualified Code(s): M86.062 - Acute hematogenous osteomyelitis, left tibia and fibula (2) Type 2 diabetes mellitus Status: Chronic Qualifiers: Diabetes mellitus fdc insulin use: with dye house hand use Diabetes mellitus complication status: with skin complications Diabetes mellitus complication detail: with other skin complication Qualified Code(s): E11.628 - Type 2 diabetes mellitus with other skin complications; 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 transplanted heart: [place] heart Associated angina: without angina Qualified Code(s): I25.10 - Atherosclerotic heart disease of [place] coronary artery without angina pectoris (4) Leg pain Status: Acute Qualifiers: Laterality: left Qualified Code(s): M79.605 - Pain in left leg Hospital course: Ms. Kirby is a 57 year old female - Time Spent with Patient Total time spent providing and/or coordinating discharge services: Time spent: Greater than 30 minutes Date of admission: 05/21/18 23:10 Primary care physician: Shoshana Davis MD Consults: 05/21/18 23:23 Consult to Nutrition [CONS] Routine Comment: Consulting Provider: NUTRITION Reason for Dietary Consult: Diet Education 05/21/18 23:50 Consult to Orthopedic Surgery [CONS] Routine Consulting Provider: Thompson Fernandez Reason for Consult: Osteomyelitis of the left extremity stump Call Completed: Yes 05/24/18 16:56 Consult to Infectious Diseases [CONS] Routine Consulting Provider: Infectious Disease Kaycee Reason for Consult: Infected BKA Time Notified: 08:23 Call Completed: Yes 05/29/18 07:13 Consult to Invasive Line Access Team [CONS] Routine Reason for Consult: home atb Line Type: Midline 05/30/18 00:13 Consult to Pantry Goods Maker [CONS] Routine Reason for SW Consult: IV Abx, D/C - Constitutional Vitals: Temp Pulse Resp BP Pulse Ox 98.6 F 91 19 115/73 97 06/01/18 10:38 06/01/18 10:38 06/01/18 10:38 06/01/18 10:38 06/01/18 10:38 - Attending Attestation Patient was seen and examined. I agree with the discharge document as written by the resident physician. admitted to the hospital for left BKA stump pain and was found to have osteomyelitis and abscess; wound aspirate was significant for growth of Serratia. Patient underwent BKA revision and antibiotic bead placement with Dr. Fernandez. Patient was evaluated by infectious disease team, with recommendation for 6 weeks of antibiotic therapy with Rocephin 2 g daily. She is to follow-up with the surgery in approximately 2 weeks for reevaluation. Per infectious disease, patient is to have weekly CBC, BUN, creatinine, ESR, and CRP. GEN: NAD CVS: RRR. S1, S2, No m/r/g RESP: CTAB ABD: Soft, NT, ND, +BS EXT: No edema. 2+ DP. No rashes. Left BKA noted NEURO: Nonfocal Please note 35 minutes were spent on coordination of this discharge with patient, nursing staff, and care coordinators.
--- NOTE | 2018-06-01 15:26 | Physician Discharge Referral ---
Home Health/Hosp Referral Info Transfer to: Home Health Attending Provider: Dr. Smita Courtney Provider in Charge Post Discharge: PCP - Diagnosis (1) Leg pain Priority: Secondary Status: Acute (2) Osteomyelitis Priority: Primary Status: Acute (3) Type 2 diabetes mellitus Priority: Secondary Status: Chronic (4) CAD (coronary artery disease) Priority: Secondary Status: Chronic - Respiratory Orders Smoking Cessation: Smoking cessation has been advised. For more information, call the [place] Tobacco Quit Line at 9-384-MEZS-NOW. - Diet/Nutrition Diet/Nutrition Orders: Cardiac (ADA diet) - Activity Activity Orders: Up ad edgar - Services Needed Following services are medically necessary services: Nursing, Home Health Aide, Physical Therapy, Occupational Therapy, Med Social Work, Home Infusion, Speech Therapy - Transfer Medications Prescriptions: OxyCODONE/APAP 10/325 [Percocet 10/325 MG] 1 each PO Q6HR PRN 2 Days #8 tablet PRN Reason: Pain cefTRIAXone [Rocephin] 2,000 mg IVPB DAILY #42 vial Cyclobenzaprine [Flexeril] 10 mg PO Q8H PRN #30 tablet PRN Reason: Spasms Pregabalin [Lyrica] 25 mg PO BID 7 Days #14 capsule Home Medications: Albuterol Neb [Proventil Neb] 2.5 mg IH Q6H PRN 05/22/18 [History] Albuterol Sulfate [Albuterol Inhaler] 2 puff IH Q4H PRN 05/22/18 [History] Allopurinol [Zyloprim 100 MG] 100 mg PO DAILY 05/22/18 [History] Atorvastatin Calcium [Lipitor] 80 mg PO DAILY 05/22/18 [History] Carvedilol [Coreg] 25 mg PO BID 05/22/18 [History] Estrogens, Conjugated [Premarin] 0.3 mg PO DAILY 05/22/18 [History] Fluticasone Propionate Nasal [Flonase] 2 spray NS 3-4XD 05/22/18 [History] Insulin Glargine,Hum.rec.anlog [Basaglar Kwikpen U-100] 30 units SQ DAILY 05/22/18 [History] Loratadine [Allergy Relief] 10 mg PO DAILY 05/22/18 [History] Meloxicam 7.5 mg PO BID PRN 05/22/18 [History] Montelukast [Singulair] 10 mg PO DAILY 05/22/18 [History] Pantoprazole Sodium [Protonix] 40 mg PO DAILY 05/22/18 [History] Paroxetine HCl [Paxil Cr] 37.5 mg PO DAILY 05/22/18 [History] Ropinirole HCl [Requip] 5 mg PO HS 05/22/18 [History] SUMAtriptan Succinate [Imitrex] 100 mg PO AD PRN 05/22/18 [History] Ziprasidone [Geodon] 160 mg PO HS 05/22/18 [History] raNITIdine HCl [Zantac] 150 mg PO BID 05/22/18 [History] Lisinopril/Hydrochlorothiazide [Zestoretic 20-12.5 mg Tablet] 1 tab PO DAILY 05/23/18 [History] Magic Mouthwash 10 ml PO TID PRN 05/23/18 [History] Cyclobenzaprine [Flexeril] 10 mg PO Q8H PRN #30 tablet 06/01/18 [Rx] OxyCODONE/APAP 10/325 [Percocet 10/325 MG] 1 each PO Q6HR PRN 2 Days #8 tablet 06/01/18 [Rx] Pregabalin [Lyrica] 25 mg PO BID 7 Days #14 capsule 06/01/18 [Rx] cefTRIAXone [Rocephin] 2,000 mg IVPB DAILY #42 vial 06/01/18 [Rx] Allergies/Adverse Reactions: Allergy/AdvReac Type Severity Reaction Status Date / Time acetaminophen Allergy Nausea Verified 05/21/18 18:05 [From Darvocet-N 100] escitalopram [From Lexapro] Allergy Confusion Verified 05/21/18 18:05 latex Allergy See Verified 05/21/18 18:05 Comments levofloxacin [From Levaquin] Allergy Nausea Verified 05/21/18 18:05 [place] Allergy Confusion Verified 05/21/18 18:05 propoxyphene Allergy Nausea Verified 05/21/18 18:05 [From Darvocet-N 100] sumatriptan [From Imitrex] Allergy See Verified 05/21/18 18:05 Comments hydrocodone AdvReac See Verified 05/21/18 18:05 Comments Certification: Further, I certify that my clinical findings support that this patient is homebound (i.e. absences from home require considerable and taxing effort and are for medical reasons or samaritan services or infrequently or short duration when for other reasons) because: Homebound Reason: Patient requires assistance of a person or device to safely leave home, Post-surgery restriction and or conditions limit ability to leave home, Leaving home requires considerable and taxing effort due to condition Attestation: My signature below is to certify that this patient is under my care and that I, or nurse practitioner, or a physician's nurse practitioner physician assistant working with me, has a [id number] encounter with this patient.
[2018-06-01 16:49] VITALS: BP 156/82
== END 2018-06-01 17:50 | disposition home or self-care (01) | DRG 313 ==
LOC: EMEROOARM 17:59 → 3NENU 17:59 → SUATTDRO 23:10
PROVIDERS: ADMIT Internal Medicine; ATTEND Internal Medicine

== ENCOUNTER 2018-08-07 16:29 | Observation (INO) ==
--- NOTE | 2018-08-07 22:07 | Internal Med History&Physical ---
Date of Encounter: 08/07/18 Time of Encounter: 22:11 Internal Medicine - H&P: HPI Chief complaint: PICC line problem Admitted From: Hospital to Hospital Transfer Plans for Post Hospital Care: Home History of present illness: Ms. Kirby is a 57 year old female Patient presented to the [facility] emergency room with problems with her PICC line that was placed 1 week ago for IV antibiotics. She has had a PICC line previou sly to this but had to have it replaced as it was leaking and became unattached, similar to what is happening with her current line. She has been experiencing bleeding around the insertion site, and it is not secured aside from the dressing. She was in the [facility] emergency room the day previously with the same issue. She has not had any arm pain, swelling, fever, lightheadedness or other signs of infection. In the ER [facility] performed a right upper extremity venous duplex ultrasound: There is normal color Doppler signal within the right internal jugular, subclavian, axillary, brachial, and cephalic veins. There is noncompressibility of the basilic vein. There is a PICC line in the vein. Radial and ulnar veins were not identified. Impression: Thrombus of the basilic vein She was transferred here to [facility] for further management as she has been managed here for this PICC line, and is currently being treated outpatient for a wound around her left lower extremity stump by Dr. Franco of infectious disease. Upon my evaluation patient is resting comfortably muscle bed in no acute distress. She denies chest pain, abdominal pain, nausea, vomiting, diarrhea, constipation and arm pain. The PICC line dressing has some signs of bleeding, and there is slight tenderness with palpation on the medial side of her upper arm. She states she is family history of diabetes, hypertension, stroke and heart disease. She is a full code. She had her left leg amputated below the knee about 3 years ago. She developed a wound on the stump site and was admitted to the hospital on July 18 of this year and discharged on July 22, treated for cellulitis/osteomyelitis. Past Med Surg Social Fam HX - Past Medical History Medical history: diabetes, fibromyalgia, hyperlipidemia, hypertension, myocardial infarction Additional medical history: MRSA wound, gout Psychiatric history: anxiety, bipolar, depression - Past Surgical History Surgical History: angioplasty/stent Additional surgical history: Left BKA, - Social History Smoking Status: Never smoker Smokeless Tobacco Status: No Alcohol use: none Drug use: none - Family History Father Hx Family Cardiac Disorders: Yes Mother Hx Family Cancer: Yes (ovarian, breast) Sister Hx Family Cardiac Disorders: Yes Internal Medicine - H&P: Meds Albuterol Neb [Proventil Neb] 2.5 mg IH Q6H PRN 05/22/18 [History] Albuterol Sulfate [Albuterol Inhaler] 2 puff IH Q4H PRN 05/22/18 [History] Allopurinol [Zyloprim 100 MG] 100 mg PO BID 05/22/18 [History] Atorvastatin Calcium [Lipitor] 80 mg PO DAILY 05/22/18 [History] Carvedilol [Coreg] 25 mg PO HS 05/22/18 [History] Fluticasone Propionate Nasal [Flonase] 2 spray NS BID PRN 05/22/18 [History] Insulin Glargine,Hum.rec.anlog [Basaglar Kwikpen U-100] 30 units SQ QPM 05/22/18 [History] Loratadine [Allergy Relief] 10 mg PO DAILY 05/22/18 [History] Meloxicam 7.5 mg PO BID PRN 05/22/18 [History] Montelukast [Singulair] 10 mg PO DAILY 05/22/18 [History] Pantoprazole Sodium [Protonix] 40 mg PO QPM 05/22/18 [History] Paroxetine HCl [Paxil Cr] 37.5 mg PO DAILY 05/22/18 [History] Ropinirole HCl [Requip] 5 mg PO HS 05/22/18 [History] SUMAtriptan Succinate [Imitrex] 100 mg PO AD PRN 05/22/18 [History] Ziprasidone [Geodon] 160 mg PO HS 05/22/18 [History] raNITIdine HCl [Zantac] 150 mg PO BID 05/22/18 [History] Lisinopril/Hydrochlorothiazide [Zestoretic 20-12.5 mg Tablet] 1 tab PO DAILY 05/23/18 [History] Magic Mouthwash 10 ml PO TID PRN 05/23/18 [History] Pregabalin [Lyrica] 25 mg PO TID 07/17/18 [History] Amitriptyline HCl 150 mg PO HS 07/19/18 [History] Ergocalciferol (VITAMIN D2) [Vitamin D2] 50,000 unit PO FR 07/19/18 [History] Nitroglycerin [Nitrostat] 0.4 mg SL AD PRN 07/19/18 [History] OXcarbazepine [Oxcarbazepine] 300 mg PO 1-2XD 07/19/18 [History] OxyCODONE Immed Rel [Roxicodone 10 MG] 10 mg PO TID 07/19/18 [History] Venlafaxine HCl [Venlafaxine HCl ER] 37.5 mg PO DAILY 07/19/18 [History] Ampicillin 2 gm IV Q4H #99 vial 07/22/18 [Rx] Allergy/AdvReac Type Severity Reaction Status Date / Time acetaminophen Allergy Nausea Verified 07/17/18 23:07 [From Darvocet-N 100] escitalopram [From Lexapro] Allergy Confusion Verified 07/17/18 23:07 latex Allergy See Verified 07/17/18 23:07 Comments levofloxacin [From Levaquin] Allergy Nausea Verified 07/17/18 23:07 [place] Allergy Confusion Verified 07/17/18 23:07 propoxyphene Allergy Nausea Verified 07/17/18 23:07 [From Darvocet-N 100] sumatriptan [From Imitrex] Allergy See Verified 07/17/18 23:07 Comments hydrocodone AdvReac See Verified 07/17/18 23:07 Comments All Systems PM: A 10-system review of systems was performed and is negative for pertinent findings except as documented above in the HPI. - Constitutional Vitals: Temp Pulse Resp BP Pulse Ox 97.9 F 89 14 162/93 99 08/07/18 17:58 08/07/18 17:58 08/07/18 17:58 08/07/18 17:58 08/07/18 17:58 General appearance: Present: cooperative, A&O X 3, pleasant, no acute distress, answers questions appropriately Exam: - - Head Head exam: Present: normal inspection - Eye Eye exam: Present: EOMI, normal appearance - Respiratory Respiratory exam: Present: CTAB. Absent: rales, respiratory distress, rhonchi, wheezes - Cardiovascular Cardiovascular exam: Present: RRR. Absent: diastolic murmur, systolic murmur - GI/Abdominal GI/Abdominal exam: Present: normal bowel sounds, soft. Absent: tenderness - Extremities Exam Extremities exam: Present: tenderness, warm, radial pulses palpable and symmetrical. Absent: pedal edema Additional comments: Right arm PICC line with tenderness medially to the insertion site. Dressing shows evidence of bleeding. No signs of active bleeding at this time. Left lower extremity below the knee amputation with dressing applied. Dressing is clean and dry. Left arm peripheral IV placed. - Neurological Exam Neurological exam: Present: no focal deficits, strengths equal and symetr throughout. Absent: motor sensory deficit, facial droop, speech deficit - Skin Skin exam: Present: dry, normal color, warm - Assessment and Plan (1) Thrombosis of left upper extremity Current Visit: Yes Status: Acute Assessment and plan: Patient found to have a right upper extremity thrombus around the PICC line site. The PICC line demonstrates some bleeding patient has mild tenderness around the area. She has had PICC lines replaced before. Because of the possibility of bleeding we will hold off on chemical anticoagulation until PICC line team can address whether or not the PICC line needs to be replaced. Once this is accomplished, arrangements for anticoagulation would be recommended. PICC line team consult Monitor site for signs of bleeding A.m. labs in the morning (2) Cellulitis of leg without foot, left Current Visit: No Status: Acute Assessment and plan: Currently being managed by infectious disease, Dr. Franco. Patient is on ampicillin 2 g IV every 4 hours. Continue current management Wound care in the morning (3) Type 2 diabetes mellitus Current Visit: No Status: Chronic Assessment and plan: Patient is an insulin dependent diabetic Monitor sugars ACHS Diabetic diet Low dose insulin sliding scale as needed Hold home meds. 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 Hold off on chemical anticoagulation until PICC line bleeding and possible replacement addressed. - Time Spent With Patient Total time spent is greater than 50% in coordination of care (as documented) at patient's floor/unit and/or counseling patient: Greater than 35 minutes
[2018-08-07] MEDS ORDERED: Naloxone 0.4 MG/ML INJ IVP PRN (22:24)
[2018-08-07] MEDS ORDERED: Albuterol 2.5 MG/3 ML NEBULIZER IH PRN (22:26)
[2018-08-07] MEDS ORDERED: Dextrose Gel 15 GM/37.5 ML TUBE PO PRN ×2 (22:31)
[2018-08-07] MEDS ORDERED: *HR* Dextrose 50 % in Water (Syg) 50 ML SYRINGE IVP PRN (22:31)
[2018-08-07] MEDS ORDERED: D5% in Water 1,000 ML IVC PRN (22:31)
[2018-08-07] MEDS ORDERED: Ampicillin 2 GM VIAL IVPB SCH (23:00)
[2018-08-08] MEDS: rOPINIRole 1 MG TABLET PO SCH ×2 (00:05→19:50)
[2018-08-08] MEDS: Ampicillin 2 GM in 0.9 % Sodium Chloride Mini Bag 100 ML IVPB SCH ×7 (00:05→23:58)
[2018-08-08] MEDS: OXcarbazepine 150 MG TABLET PO SCH ×3 (00:05→19:50)
[2018-08-08] MEDS: *HR* OxyCODONE Immed Rel 5 MG TABLET PO SCH ×4 (01:24→20:54)
[2018-08-08 01:50] LABS: Hematocrit 31.2 % (35.3-44.9); Hemoglobin 9.9 g/dL (11.5-15.4); Mean Corpuscular HGB Conc 31.7 g/dL (31.6-35.5); Mean Corpuscular Hemoglobin 25.3 pg (28.0-33.3); Mean Corpuscular Volume 79.6 fL (83.0-100.0); Mean Platelet Volume 9.5 fL (9.4-12.4); Platelet Count 229 K/mcL (140-400); Red Blood Count 3.92 M/mcL (3.82-4.97); Red Cell Distribution Width 13.4 % (11.5-14.5); White Blood Count 7.2 K/mcL (4.3-11.1)
[2018-08-08 01:59] LABS: INR 1.1; Prothrombin Time 12.2 Seconds (9.4-12.1)
[2018-08-08 02:10] LABS: BUN/Creatinine Ratio 13 (6-26); Blood Urea Nitrogen 11 mg/dL (6-20); Calcium 8.1 mg/dL (8.6-10.3); Carbon Dioxide 24 mEq/L (23-29); Chloride 103 mEq/L (98-107); Glucose 321 mg/dL (70-105); Osmolality,Calculated 298 (280-300); Potassium 3.2 mEq/L (3.5-5.1); Sodium 138 mEq/L (136-145); eGFR For African Americans > 60 (> 60); eGFR For Non-African Americans > 60 (> 60)
[2018-08-08] MEDS ORDERED: Ondansetron 4 MG/2 ML VIAL IVP ONE (03:35)
[2018-08-08] MEDS ORDERED: Ibuprofen 600 MG TABLET PO ONE (03:35)
[2018-08-08] MEDS: Insulin LISPRO 300 UNITS/3 ML VIAL SQ SCH ×5 (04:49→21:48)
[2018-08-08] MEDS: Lisinopril-HCTZ 20-12.5mg TABLET PO SCH (08:52)
[2018-08-08] MEDS: Venlafaxine XR (24 HR) 37.5 MG CAP.ER.24H PO SCH (08:52)
[2018-08-08] MEDS: Pregabalin 25 MG CAPSULE PO SCH ×3 (08:52→19:51)
[2018-08-08] MEDS ORDERED: *HR* OxyCODONE Immed Rel 5 MG TABLET PO SCH (09:00)
--- NOTE | 2018-08-08 11:54 | Internal Med Progress Note ---
Hospitalist Progress Note - Encounter Date of Encounter: 08/08/18 Time of Encounter: 11:20 - Subjective Interval History: Ms Kirby is currently in observation for thrombosis associated with PICC line. She remains moderate risk at this time. Ms Kirby is resting at this time. No fever or chills. No new issues since admission. - Exam Vitals: Temp Pulse Resp BP Pulse Ox 98.2 F 90 15 158/91 96 08/08/18 11:18 08/08/18 11:18 08/08/18 11:18 08/08/18 11:18 08/08/18 11:18 Exam: General: Alert and oriented. Comfortable at this time. Skin: Normal color, no rash, H: Normocephalic. EENT: EOMI, Mucus membranes moist. Cardiovascular: Normal S1 & S2, no murmurs Pulse regular. Not tachycardic Lungs: Normal breath sounds, no wheezes or crackles. Abdomen: Soft, Normal bowel sounds. Extremities: Tenderness near PICC in RUE. L BKA. No other swelling or deformity. Neurological: Normal cognition and motor skills. Pulses: radial pulses normal +2. Rest of the physical exam is non contributory - Assessment and Plan (1) Thrombosis of left upper extremity Current Visit: Yes Status: Acute Assessment and Plan: Patient found to have a right upper extremity thrombus around the PICC line site. At the current time appears to have no significant change from admission. Plan for PICC team consult for removal of line. Further anticoagulation after removal. (2) Cellulitis of leg without foot, left Current Visit: No Status: Acute Assessment and Plan: Currently being managed by infectious disease, Dr. Franco. Patient is on ampicillin 2 g IV every 4 hours. Continue current IV abx treatment for leg. (3) Type 2 diabetes mellitus Current Visit: No Status: Chronic Assessment and Plan: Patient is an insulin dependent diabetic Currently monitoring blood sugars and coverage ordered. (4) DVT prophylaxis Current Visit: No Status: Acute (5) History of left below knee amputation Current Visit: No Status: Chronic Assessment and Plan: Chronic issue. (6) CAD (coronary artery disease) Current Visit: No Status: Chronic Assessment and Plan: No symptoms at this time. Continue home medications. (7) Hypertension Current Visit: No Status: Chronic Assessment and Plan: Controlled at this time. Continuing home medications. (8) Neuropathic pain Current Visit: No Status: Suspected Assessment and Plan: Continue home meds. (9) Diabetes mellitus with hyperglycemia Current Visit: Yes Status: Chronic Assessment and Plan: Monitoring blood sugar. Uncontrolled at this time. Adjust meds. - Time Spent with Patient Total time spent is greater than 50% in coordination of care (as documented) at patient's floor/unit and/or counseling patient: Internal Medicine: Result - Labs CBC & Chem 7: 08/08/18 01:23 08/08/18 01:23 Labs: Short CBC 08/08/18 Range/Units 01:23 WBC 7.2 (4.3-11.1) K/mcL Hgb 9.9 L (11.5-15.4) g/dL Hct 31.2 L (35.3-44.9) % Plt Count 229 (140-400) K/mcL BMP 08/08/18 01:23 Sodium 138 Potassium 3.2 L Chloride 103 Carbon Dioxide 24 BUN 11 Creatinine 0.82 Glucose 321 H Calcium 8.1 L - ABG Interpretation ABG results: PT/INR, D-dimer PT 12.2 Seconds (9.4-12.1) H 08/08/18 01:23 Consult Discharge Plan - Plan Referrals: Shoshana Davis MD [Primary Care Provider] - (3) Type 2 diabetes mellitus Qualifiers: Diabetes mellitus group home insulin use: 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 tr ansplanted heart: [place] heart Associated angina: without angina Qualified Code(s): I25.10 - Atherosclerotic heart disease of [place] coronary artery without angina pectoris (7) Hypertension Qualifiers: Hypertension type: essential hypertension Qualified Code(s): I10 - Essential (primary) hypertension (9) Diabetes mellitus with hyperglycemia Qualifiers: Diabetes mellitus type: type 2 Diabetes mellitus civil engineering intern insulin use: without group home use Qualified Code(s): E11.65 - Type 2 diabetes mellitus with hyperglycemia
[2018-08-08] MEDS: SUMAtriptan succinate 50 MG TABLET PO PRN ×2 (13:13→20:54)
[2018-08-08] MEDS ORDERED: Fluticasone Propionate Nasal 50 MCG/SPRAY BOTTLE NS PRN (14:31)
[2018-08-08] MEDS ORDERED: Magic Mouthwash 10 ML UD Cup PO PRN (14:31)
[2018-08-08] MEDS ORDERED: NON-FORMULARY MEDICATION 1 EACH EACH (Sumatriptan Succinate [Imitrex] 100 MG) PO PRN (14:31)
[2018-08-08] MEDS ORDERED: Nitroglycerin 0.4 MG TAB.SUBL SL PRN (14:31)
[2018-08-08] MEDS: Famotidine 20 MG TABLET PO SCH (16:04)
[2018-08-08] MEDS: Insulin DETEMIR 100 UNIT/ML X5UNITS SQ SCH (18:51)
[2018-08-08] MEDS ORDERED: Ziprasidone 80 MG CAPSULE PO SCH (21:00)
[2018-08-08] MEDS ORDERED: Insulin LISPRO 300 UNITS/3 ML VIAL SQ SCH (21:00)
[2018-08-09 04:37] LABS: Hematocrit 35.6 % (35.3-44.9); Mean Corpuscular HGB Conc 30.9 g/dL (31.6-35.5); Mean Corpuscular Hemoglobin 24.7 pg (28.0-33.3); Mean Platelet Volume 9.8 fL (9.4-12.4); Platelet Count 255 K/mcL (140-400); Red Blood Count 4.45 M/mcL (3.82-4.97); Red Cell Distribution Width 13.9 % (11.5-14.5); White Blood Count 8.4 K/mcL (4.3-11.1)
[2018-08-09] MEDS: Ampicillin 2 GM in 0.9 % Sodium Chloride Mini Bag 100 ML IVPB SCH ×6 (04:43→23:36)
[2018-08-09 04:55] LABS: Calcium 8.3 mg/dL (8.6-10.3); Magnesium 1.3 mg/dL (1.6-2.6); Potassium 3.2 mEq/L (3.5-5.1)
[2018-08-09] MEDS ORDERED: 0.9 % Sodium Chloride 500 ML IVC ONE ×2 (07:41→09:31)
[2018-08-09] MEDS ORDERED: 0.9 % Sodium Chloride 500 ML ONE (07:46)
[2018-08-09] MEDS: Famotidine 20 MG TABLET PO SCH (07:51)
[2018-08-09] MEDS: Loratadine 10 MG TABLET PO SCH (07:51)
[2018-08-09] MEDS: Insulin LISPRO 300 UNITS/3 ML VIAL SQ SCH ×4 (07:51→21:59)
[2018-08-09] MEDS: OXcarbazepine 150 MG TABLET PO SCH ×2 (07:52→21:58)
[2018-08-09] MEDS: Lisinopril-HCTZ 20-12.5mg TABLET PO SCH (07:58)
[2018-08-09] MEDS: Venlafaxine XR (24 HR) 37.5 MG CAP.ER.24H PO SCH (07:58)
[2018-08-09] MEDS ORDERED: *HR* OxyCODONE Immed Rel 5 MG TABLET PO PRN (10:52)
[2018-08-09] MEDS: Pregabalin 25 MG CAPSULE PO SCH ×3 (11:05→21:58)
[2018-08-09] MEDS: *HR* OxyCODONE Immed Rel 5 MG TABLET PO SCH ×3 (12:05→17:24)
--- NOTE | 2018-08-09 13:46 | Internal Med Progress Note ---
Hospitalist Progress Note - Encounter Date of Encounter: 08/09/18 Time of Encounter: 10:30 - Subjective Interval History: Ms Kirby is currently in observation for PICC line associated thrombus. She remains moderate risk at this time. Ms Kirby is complaining of pain. Takes her meds at different times at home. Wants Flexeril. BP low this AM - does not consistently take Zestoretic at home but got it this AM. No dizziness. No CP. Feels OK at this time. - Exam Vitals: Temp Pulse Resp BP Pulse Ox 97.4 F L 94 16 96/57 95 08/09/18 07:24 08/09/18 12:39 08/09/18 12:39 08/09/18 12:39 08/09/18 12:39 Exam: General: Alert and oriented. Comfortable at this time. Sitting up on edge of bed. Skin: Normal color, no rash, H: Normocephalic. EENT: EOMI, Mucus membranes moist. Cardiovascular: Normal S1 & S2, no murmurs Pulse regular. Lungs: Normal breath sounds, no wheezes or crackles. Good effort. Abdomen: Soft, Normal bowel sounds. Extremities: Tenderness near PICC in RUE. L BKA. Dressing removed from stump - some yellow drainage but not much. No erythema. Neurological: Normal cognition and motor skills. Pulses: radial pulses normal +2. Rest of the physical exam is non contributory - Assessment and Plan (1) Hypotension Current Visit: Yes Status: Suspected Assessment and Plan: Hypotensive this AM. Given fluids. Suspect due to Zestoretic. Med discontinued. (2) Acute thrombosis of left basilic vein Current Visit: Yes Status: Acute Assessment and Plan: Pt has thrombus associated with PICC line. Awaiting further eval by PICC team tomorrow. (3) Cellulitis of leg without foot, left Current Visit: No Status: Acute Assessment and Plan: Currently being managed by infectious disease, Dr. Franco. Patient is on ampicillin 2 g IV every 4 hours. Less drainage and erythema noted. Continue IV Ampicillin. (4) Type 2 diabetes mellitus Current Visit: No Status: Chronic Assessment and Plan: Patient is an insulin dependent diabetic Currently monitoring blood sugars and coverage ordered. Remains uncontrolled - meds adjusted. (5) History of left below knee amputation Current Visit: No Status: Chronic Assessment and Plan: Chronic issue. (6) CAD (coronary artery disease) Current Visit: No Status: Chronic Assessment and Plan: No symptoms at this time. Continue home medications. (7) Hypertension Current Visit: No Status: Chronic Assessment and Plan: Hypotensive this AM. Zestoretic discontinued. (8) Neuropathic pain Current Visit: No Status: Suspected Assessment and Plan: Continue home meds. (9) Diabetes mellitus with hyperglycemia Current Visit: Yes Status: Chronic Assessment and Plan: Monitoring blood sugar. Uncontrolled at this time. Will increase Levemir tonight. - Time Spent with Patient Total time spent is greater than 50% in coordination of care (as documented) at patient's floor/unit and/or counseling patient: Internal Medicine: Result - Labs CBC & Chem 7: 08/09/18 03:43 08/09/18 03:43 Labs: Short CBC 08/09/18 Range/Units 03:43 WBC 8.4 (4.3-11.1) K/mcL Hgb 11.0 L (11.5-15.4) g/dL Hct 35.6 (35.3-44.9) % Plt Count 255 (140-400) K/mcL BMP 08/09/18 03:43 Sodium 135 L Potassium 3.2 L Chloride 97 L Carbon Dioxide 26 BUN 16 Creatinine 1.53 H Glucose 256 H Calcium 8.3 L - ABG Interpretation ABG results: PT/INR, D-dimer PT 12.2 Seconds (9.4-12.1) H 08/08/18 01:23 Consult Discharge Plan - Plan Referrals: Shoshana Davis MD [Primary Care Provider] - (Unable to schedule appointment. Please call Friday to schedule hospital follow up appointment for 7-10 days from date of discharge. 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 transplanted heart: [place] heart Associated angina: without angina Qualified Code(s): I25.10 - Atherosclerotic heart disease of [place] coronary artery without angina pectoris (7) Hypertension Qualifiers: Hypertension type: essential hypertension Qualified Code(s): I10 - Essential (primary) hypertension (9) Diabetes mellitus with hyperglycemia Qualifiers: Diabetes mellitus type: type 2 Diabetes mellitus intermediate accountant insulin use: without penitentiary use Qualified Code(s): E11.65 - Type 2 diabetes mellitus with hyperglycemia
[2018-08-09] MEDS ORDERED: GuaiFENesin Liq 200 MG/10 ML UDC PO PRN (13:55)
[2018-08-09] MEDS: Insulin DETEMIR 100 UNIT/ML X5UNITS SQ SCH (17:18)
[2018-08-09] MEDS: Ziprasidone 80 MG CAPSULE PO SCH (21:57)
[2018-08-09] MEDS: rOPINIRole 1 MG TABLET PO SCH (21:58)
[2018-08-10] MEDS: Ampicillin 2 GM in 0.9 % Sodium Chloride Mini Bag 100 ML IVPB SCH ×5 (03:54→20:26)
[2018-08-10] MEDS: *HR* OxyCODONE Immed Rel 5 MG TABLET PO SCH ×3 (04:01→23:12)
[2018-08-10] MEDS: Famotidine 20 MG TABLET PO SCH (06:24)
[2018-08-10 06:28] LABS: Hematocrit 30.8 % (35.3-44.9); Hemoglobin 9.9 g/dL (11.5-15.4); Mean Corpuscular HGB Conc 32.1 g/dL (31.6-35.5); Mean Corpuscular Hemoglobin 25.3 pg (28.0-33.3); Mean Corpuscular Volume 78.6 fL (83.0-100.0); Platelet Count 214 K/mcL (140-400); Red Blood Count 3.92 M/mcL (3.82-4.97); Red Cell Distribution Width 13.8 % (11.5-14.5); White Blood Count 6.8 K/mcL (4.3-11.1)
[2018-08-10 06:38] LABS: Prothrombin Time 11.4 Seconds (9.4-12.1)
[2018-08-10 06:48] LABS: BUN/Creatinine Ratio 20 (6-26); Blood Urea Nitrogen 15 mg/dL (6-20); Calcium 8.2 mg/dL (8.6-10.3); Carbon Dioxide 29 mEq/L (23-29); Chloride 99 mEq/L (98-107); Glucose 298 mg/dL (70-105); Osmolality,Calculated 296 (280-300); Potassium 3.3 mEq/L (3.5-5.1); Sodium 137 mEq/L (136-145); eGFR For African Americans > 60 (> 60); eGFR For Non-African Americans > 60 (> 60)
--- NOTE | 2018-08-10 08:01 | Internal Med Progress Note ---
<Ga Alexandra - Last Filed: 08/10/18 14:36> Hospitalist Progress Note - Encounter Date of Encounter: 08/10/18 - Exam Vitals: Temp Pulse Resp BP Pulse Ox 97.3 F L 80 16 93/60 97 08/10/18 10:36 08/10/18 10:36 08/10/18 10:36 08/10/18 10:36 08/10/18 10:36 - Assessment and Plan (1) Hypotension Current Visit: Yes Status: Suspected (2) Acute thrombosis of left basilic vein Current Visit: Yes Status: Acute (3) Cellulitis of leg without foot, left Current Visit: No Status: Acute (4) Type 2 diabetes mellitus Current Visit: No Status: Chronic (5) History of left below knee amputation Current Visit: No Status: Chronic (6) CAD (coronary artery disease) Current Visit: No Status: Chronic (7) Hypertension Current Visit: No Status: Chronic (8) Neuropathic pain Current Visit: No Status: Suspected (9) Diabetes mellitus with hyperglycemia Current Visit: Yes Status: Chronic - Time Spent with Patient Total time spent is greater than 50% in coordination of care (as documented) at patient's floor/unit and/or counseling patient: Internal Medicine: Result - Labs CBC & Chem 7: 08/10/18 05:58 08/10/18 05:58 Labs: Short CBC 08/10/18 Range/Units 05:58 WBC 6.8 (4.3-11.1) K/mcL Hgb 9.9 L (11.5-15.4) g/dL Hct 30.8 L (35.3-44.9) % Plt Count 214 (140-400) K/mcL BMP 08/10/18 05:58 Sodium 137 Potassium 3.3 L Chloride 99 Carbon Dioxide 29 BUN 15 Creatinine 0.75 Glucose 298 H Calcium 8.2 L - ABG Interpretation ABG results: PT/INR, D-dimer PT 11.4 Seconds (9.4-12.1) 08/10/18 05:58 Consult Discharge Plan - Plan Referrals: Shoshana Davis MD [Primary Care Provider] - 08/18/18 12:40 pm () - Attending Attestation I examined this patient and my medical decision-making was reviewed with the Resident Physician on 08/10/18. I agree with the documented findings, disposition and treatment plan as described except to the extent set forth below. Ms Kirby is currently in observation for thrombus of PICC line site. She remains moderate to high risk due to potential for worsening clinical status. Ms Kirby is eating lunch. BP has been up and down. No fever or chills. ID to officially see patient and Dr. Fernandez to be consulted. Continue IV abx. Needs new line placed. <Bridger Restrepo - Last Filed: 08/10/18 15:28> Hospitalist Progress Note - Encounter Date of Encounter: 08/10/18 Time of Encounter: 09:15 - Subjective Interval History: The patient is seen and examined at bedside. This morning she is feeling okay overall, she does continue to have some pain and itching around the site of her PICC line. She states that this has been going on since the time she got here and this is not acute. Overall she has no acute complaints this morning. She did have an episode of hypotension this morning requiring a bolus of fluids. She was alert and oriented on examination and did not have any issues with dizziness or chest pains. - Exam Vitals: Temp Pulse Resp BP Pulse Ox 98.3 F 99 16 90/55 97 08/10/18 07:23 08/10/18 07:23 08/10/18 07:23 08/10/18 07:23 08/10/18 07:23 Exam: Gen: Vitals noted. No acute distress. Eyes: anicteric sclerae, moist conjunctivae; no lid-lag; Pupils equal and reactive to light HENT: Atraumatic; oropharynx clear with moist mucous membranes and no mucosal ulcerations; normal hard and soft palate Neck: Trachea midline; supple, no thyromegaly or lymphadenopathy Cardiac: RRR, no murmur, +S1/S2 Pulmonary: CTA bilaterally, no wheezes, rales or rhonchi, equal chest expansion Abdomen: soft, nontender, no guarding. No masses or hepatosplenomegaly MSK: ROM intact, no joint swelling noted Extremities: Patient is status post left BKA with bandage on BKA stump that has clear normal-appearing skin surrounding obvious drainage or pus. There is tenderness to palpation of the surrounding area. Skin: Normal temperature, turgor and texture; no rash, ulcers or subcutaneous nodules Neuro: moves all extremities, no focal deficits. Psych: Appropriate mood and behavior. A&Ox3 - Assessment and Plan (1) Osteomyelitis Current Visit: Yes Status: Chronic Assessment and Plan: Osteomyelitis of left BKA stump Infectious organism is Enterococcus faecalis Patient remains on IV ampicillin, however there is some concern that the wound is worsening She has had problems with noncompliance with in the past and does not go to appointments in the outpatient setting We did discuss the case with infectious disease and Dr. Franco recommended an official consultation as well as an orthopedic consultation Additionally, per orthopedic request, we will get an x-ray of the left lower extremity Continue IV ampicillin per ID at this time (2) Acute thrombosis of left basilic vein Current Visit: Yes Status: Acute Assessment and Plan: Thrombosis of the left basilar vein secondary to PICC insertion The patient has had multiple thrombotic events associated with PICC lines in the past As result, it is unclear how we should proceed with long-term placement of intravenous access Because guidelines are unclear on this, we will get hematology consultation Over the phone, robot designer did recommend likely low dose Xarelto We will likely start this tomorrow following placement of tunneled PICC with interventional radiology Nothing by mouth at midnight for tunneled PICC insertion (3) Hypotension Current Visit: Yes Status: Suspected Assessment and Plan: Hypotension, likely secondary to opioid adverse effect Patient does take opioids as home medication, however hypotension is timed with doses of opioids She has now had received multiple boluses to bring blood pressure up We will lower the dose of her opioid pain medication at this time Continue to monitor her blood pressure closely (4) Type 2 diabetes mellitus Current Visit: Yes Status: Chronic Assessment and Plan: Diabetes mellitus with hyperglycemia We will attempted again tighter glycemic control for better wound healing Add prandial insulin and increase to medium dose sliding scale (5) History of left below knee amputation Current Visit: No Status: Chronic Assessment and Plan: Left below the knee amputation, chronic (6) Neuropathic pain Current Visit: No Status: Suspected Assessment and Plan: On Lyrica - Time Spent with Patient Total time spent is greater than 50% in coordination of care (as documented) at patient's floor/unit and/or counseling patient: Internal Medicine: Result - Labs CBC & Chem 7: 08/10/18 05:58 08/10/18 05:58 Labs: Short CBC 08/10/18 Range/Units 05:58 WBC 6.8 (4.3-11.1) K/mcL Hgb 9.9 L (11.5-15.4) g/dL Hct 30.8 L (35.3-44.9) % Plt Count 214 (140-400) K/mcL BMP 08/10/18 05:58 Sodium 137 Potassium 3.3 L Chloride 99 Carbon Dioxide 29 BUN 15 Creatinine 0.75 Glucose 298 H Calcium 8.2 L - ABG Interpretation ABG results: PT/INR, D-dimer PT 11.4 Seconds (9.4-12.1) 08/10/18 05:58 <Ga Alexandra - Last Filed: 08/10/18 14:36> (1) Hypotension Qualifiers: Hypotension type: hypotension due to drug Qualified Code(s): I95.2 - Hypotension due to drugs (4) Type 2 diabetes mellitus Qualifiers: Diabetes mellitus prison insulin use: with termite technician use Diabetes mellitus complication status: with skin complications Diabetes mellitus complication detail: with other skin complication Qualified Code(s): E11.628 - Type 2 diabetes mellitus with other skin complications; Z79.4 - longterm (current) use of insulin (6) CAD (coronary artery disease) Qualifiers: Coronary Disease-Associated Artery/Lesion type: [place] artery [place] vs. transplanted heart: [place] heart Associated angina: without angina Qualified Code(s): I25.10 - Atherosclerotic heart disease of [place] coronary artery without angina pectoris (7) Hypertension Qualifiers: Hypertension type: essential hypertension Qualified Code(s): I10 - Essential (primary) hypertension (9) Diabetes mellitus with hyperglycemia Qualifiers: Diabetes mellitus type: type 2 Diabetes mellitus termite technician insulin use: without prison use Qualified Code(s): E11.65 - Type 2 diabetes mellitus with hyperglycemia <Bridger Restrepo - Last Filed: 08/10/18 15:28> (1) Osteomyelitis Qualifiers: Osteomyelitis type: acute hematogenous Osteomyelitis location: tibia Laterality: left Qualified Code(s): M86.062 - Acute hematogenous osteomyelitis, left tibia and fibula (3) Hypotension Qualifiers: Hypotension type: hypotension due to drug Qualified Code(s): I95.2 - Hypotension due to drugs (4) Type 2 diabetes mellitus Qualifiers: Diabetes mellitus prison insulin use: with termite technician use Diabetes mellitus complication status: with skin complications Diabetes mellitus complication detail: with other skin complication Qualified Code(s): E11.628 - Type 2 diabetes mellitus with other skin complications; Z79.4 - termite treater helper (current) use of insulin
[2018-08-10] MEDS ORDERED: 0.9 % Sodium Chloride 500 ML IVC ONE (08:05)
[2018-08-10] MEDS: Insulin LISPRO 300 UNITS/3 ML VIAL SQ SCH ×6 (08:28→21:53)
[2018-08-10] MEDS: Pregabalin 25 MG CAPSULE PO SCH ×3 (08:29→21:51)
[2018-08-10] MEDS: OLANZapine 5 MG TAB.RAPDIS PO SCH (08:29)
[2018-08-10] MEDS: OXcarbazepine 150 MG TABLET PO SCH ×2 (08:29→21:52)
[2018-08-10] MEDS: hydrOXYzine pamoate 25 MG CAPSULE PO SCH (08:29)
[2018-08-10] MEDS: Venlafaxine XR (24 HR) 75 MG CAP.ER.24H PO SCH (08:29)
[2018-08-10] MEDS: Loratadine 10 MG TABLET PO SCH (08:29)
[2018-08-10] MEDS ORDERED: 0.9 % Sodium Chloride 1,000 ML ONE (09:14)
--- NOTE | 2018-08-10 13:48 | Infectious Disease Consult ---
Infectious Disease-Consult - Encounter Date/Time Date of Encounter: 08/10/18 Time of Encounter: 13:34 - Data of Consult Patient: known to practice within the last 3 years Reason for consult: stump infection Consult date: 08/10/18 Requesting Physician: Ga Alexandra DO Primary Care Provider: Shoshana Davis MD - HPI HPI: Patient is a 57-year-old gentleman well-known to my service with a left BKA stump infection who is being treated as an outpatient by my service was admitted for a PICC line that is nonfunctional. Patient is a 57-year-old woman well-known to my service who initially was admitted back in May with a stump infection on the left lower extremity. Patient was taken to surgery by Dr. Fernandez where she had an I&D done and removal of cement spacer parts. Intra-Op cultures were positive for Serratia marcescens. Patient was treated by me with Rocephin 2 g IV every 24 hours. Patient was clinically doing well but she was lost to follow-up and during that time patient was seen at wound care apparently she had wound dehiscence and more pus was coming out. Patient was seen by a Dr. Anand Terrazas and he called me and told me that the wound is tracking all the way to the bone. Cultures from the wound were positive for staph epi, micrococcus and ampicillin sensitive Enterococcus faecalis. Patient also was lethargic and appeared ill so I decided to admit the patient for workup on 07/18/2018. Patient was evaluated by us and by orthopedics. Orthopedics recommended no surgical intervention. Cultures obtained during the hospital stay were positive for ampicillin sensitive Enterococcus faecalis. Patient was discharged on ampicillin continuous pump with the plan to treat for 6 weeks (started 07/20/2018). Patient, office and mentioned that her PICC line is out and we requested she come to the emergency department for evaluation. Since admission patient has been afebrile with MAXIMUM TEMPERATURE of 99.1, tachycardic with no tachypnea. WBC 7.2 no differential was obtained. Rest of the chemistry revealed elevated glucose otherwise normal BUN and creatinine. Her MRSA screen was done which came back positive so patient was placed in contact isolation. Patient has had noncompliance issues and the patient seems to have poor quality of living. Patient has had 2 PICC line is that stopped working and she had to come in and get it fixed. Patient also has not followed up as an outpatient as she should. She did miss follow-up with me as an outpatient and she missed with Dr. Fernandez. Patient tells me she will she is having more pain in her left stump. She denies any headache no fevers no chills no night sweats no chest pain no shortness of breath no cough. No nausea no vomiting no diarrhea no urinary symptoms. - ROS Review of Systems: 10 point review of systems done, negative other for what is mentioned in history of present illness. - Results CBC & Chem 7: 08/10/18 05:58 08/10/18 05:58 - Exam Vitals: Temp Pulse Resp BP Pulse Ox 97.3 F L 80 16 93/60 97 08/10/18 10:36 08/10/18 10:36 08/10/18 10:36 08/10/18 10:36 08/10/18 10:36 Exam: GENERAL: Laying in bed, appears comfortable. HEAD: Normocephalic atraumatic EYES: PERRLA, EOMI, no conjunctival hemorrhage, sclera anicteric ENT: Mucous membranes moist, no oral thrush NECK: Supple. No meningeal signs. No masses LUNGS: Chest expanding symmetrically. Lungs sounds audible both lung mandujano. No wheezing, no rhonchi CV: RRR, S1S2, ABDOMEN: Soft, nontender, nondistended. Bowel sounds audible EXTREMITY: Adequate perfusion. Midline right upper extremity with hematoma around no signs of infection. Left BKA's comp with some more foul-smelling and drainage. SKIN: Normal color. No rash. NEURO: Awake alert oriented 3. No obvious focal deficit PSYCH: Calm and appropriate. No agitation. Albuterol Neb [Proventil Neb] 2.5 mg IH QID PRN 05/22/18 [History] Albuterol Sulfate [Proventil Inhaler] 1 - 2 puff IH Q4-6H PRN 05/22/18 [History] Allopurinol [Zyloprim 100 MG] 100 mg PO BID 05/22/18 [History] Atorvastatin Calcium [Lipitor] 80 mg PO DAILY 05/22/18 [History] Carvedilol [Coreg] 25 mg PO BID 05/22/18 [History] Fluticasone Propionate Nasal [Flonase] 1 spray NS DAILY 05/22/18 [History] Insulin Glargine,Hum.rec.anlog [Basaglar Kwikpen U-100] 30 units SQ DAILY 05/22/18 [History] Loratadine [Allergy Relief] 10 mg PO DAILY 05/22/18 [History] Montelukast [Singulair] 10 mg PO QPM 05/22/18 [History] Pantoprazole Sodium [Protonix] 40 mg PO DAILY 05/22/18 [History] Paroxetine HCl [Paxil Cr] 37.5 mg PO QAM 05/22/18 [History] Ropinirole HCl [Requip] 5 mg PO HS 05/22/18 [History] SUMAtriptan Succinate [Imitrex] 100 mg PO AD PRN MDD 200MG/24HR 05/22/18 [History] Ziprasidone [Geodon] 80 mg PO HS 05/22/18 [History] raNITIdine HCl [Zantac] 150 mg PO BID 05/22/18 [History] Lisinopril/Hydrochlorothiazide [Zestoretic 20-12.5 mg Tablet] 1 tab PO DAILY 05/23/18 [History] Magic Mouthwash 15 ml PO QID PRN 05/23/18 [History] Pregabalin [Lyrica] 25 mg PO TID 07/17/18 [History] Amitriptyline HCl 150 mg PO HS 07/19/18 [History] Ergocalciferol (VITAMIN D2) [Vitamin D2] 50,000 unit PO QWEEK 07/19/18 [History] Nitroglycerin [Nitrostat] 0.4 mg SL AD PRN 07/19/18 [History] OXcarbazepine [Oxcarbazepine] 300 mg PO QAM 07/19/18 [History] OxyCODONE Immed Rel [Roxicodone 10 MG] 10 mg PO TID PRN 07/19/18 [History] Ampicillin 2 gm IV Q4H #99 vial 07/22/18 [Rx] Cyclobenzaprine HCl 10 mg PO BID PRN 08/09/18 [History] Guaifenesin [Mucus Relief] 400 mg PO Q4H PRN 08/09/18 [History] HydrOXYzine Pamoate [Vistaril] 50 mg PO DAILY 08/09/18 [History] Meloxicam 15 mg PO DAILY 08/09/18 [History] Mometasone Furoate [Asmanex] 1 puff IH BID 08/09/18 [History] Nystatin [Nystatin Suspension] 5 ml MM QID 08/09/18 [History] OLANZapine [Zyprexa] 5 mg PO DAILY 08/09/18 [History] OXcarbazepine [Oxcarbazepine] 600 mg PO HS 08/09/18 [History] Ondansetron HCl 8 mg PO Q8H PRN 08/09/18 [History] Venlafaxine HCl [Venlafaxine HCl ER] 75 mg PO DAILY 08/09/18 [History] lamoTRIgine [Lamotrigine] 200 mg PO BID 08/09/18 [History] Allergy/AdvReac Type Severity Reaction Status Date / Time acetaminophen Allergy Nausea Verified 07/17/18 23:07 [From Darvocet-N 100] escitalopram [From Lexapro] Allergy Confusion Verified 07/17/18 23:07 latex Allergy See Verified 07/17/18 23:07 Comments levofloxacin [From Levaquin] Allergy Nausea Verified 07/17/18 23:07 [place] Allergy Confusion Verified 07/17/18 23:07 propoxyphene Allergy Nausea Verified 07/17/18 23:07 [From Darvocet-N 100] sumatriptan [From Imitrex] Allergy See Verified 07/17/18 23:07 Comments hydrocodone AdvReac See Verified 07/17/18 23:07 Comments - Assessment and Plan (1) Osteomyelitis Current Visit: No Status: Chronic 05/23/2018 MRI: Large rim-enhancing fluid collection of the stump measuring 2.1x3.8x2 cm most compatible with a large abscess. Surrounding cellulitis. Osteomyelitis of the distal stump with patchy marrow edema and postcontrast enhancement suspicious for osteomyelitis proximally. 05/29/2018: Incision and drainage and debridement of the left below-knee amputation and removal of cement plug left tibia and insertion of antibiotic beads left tibia; Intra-Op cultures grew Serratia marcescens pansensitive. 06/01/18: patient discharged on ceftriaxone 2 grams daily no labs were sent to us: will request labs; continue rocephine 2 grams daily Initially the plan was to treat through 07/13/2018 Patient had no wound dehiscence apparently. She has met to follow-ups. So I have not been aware that she had the wound dehiscence and wound VAC was recently placed. Labs were sent to us and her ESR is 53 WBC is 7.95 creatinine 1.25 and his CRP is 45. Status post admission to [facility] 07/18/2018. Swab cultures positive for ampicillin sensitive Enterococcus faecalis Patient was switched to IV ampicillin continuous pump Continue current treatment regimen with the plan to treat for 6 weeks through 08/31/2018. now more stump pain and drainage will get swab culture consult ortho again check labs including ESR and CRP conitnue ampicillin 12 grams q24 hours Qualifiers: Osteomyelitis type: acute hematogenous Osteomyelitis location: tibia Laterality: left Qualified Code(s): M86.062 - Acute hematogenous osteo myelitis, left tibia and fibula SNOMED Code(s): 36811407 (2) Allergy to multiple antibiotics Current Visit: Yes Status: Acute SNOMED Code(s): 963171984375448 (3) Type 2 diabetes mellitus Current Visit: No Status: Chronic Qualifiers: Diabetes mellitus longterm insulin use: with longterm use Diabetes mellitus complication status: with skin complications Diabetes mellitus complication detail: with other skin complication Qualified Code(s): E11.628 - Type 2 diabetes mellitus with other skin complications; Z79.4 - half-way (current) use of insulin SNOMED Code(s): 86869189 (4) Abscess Current Visit: No Status: Acute SNOMED Code(s): 967146723 (5) PICC line infiltration Current Visit: Yes Status: Acute this is the second time in 3 weeks patient's picc line gets pulled i'm concerned for non compliance and concerned that patient not taking antibiotics like she should also concerned for her living conditions. consider placement? will d/w patient Qualifiers: Encounter type: initial encounter Qualified Code(s): T82.898A - Other sp ecified complication of vascular prosthetic devices, implants and grafts, initial encounter SNOMED Code(s): 58569542, [id number] Past Med Surg Social Fam HX - Past Medical History Medical history: diabetes, fibromyalgia, hyperlipidemia, hypertension, myocardial infarction Additional medical history: MRSA wound, gout Psychiatric history: anxiety, bipolar, depression - Past Surgical History Surgical History: angioplasty/stent Additional surgical history: Left BKA, - Social History Smoking Status: Never smoker Smokeless Tobacco Status: No Alcohol use: none Drug use: none - Family History Father Hx Family Cardiac Disorders: Yes Mother Hx Family Cancer: Yes (ovarian, breast) Sister Hx Family Cardiac Disorders: Yes Consult Discharge Plan - Plan Referrals: Shoshana Davis MD [Primary Care Provider] - 08/18/18 12:40 pm ()
--- NOTE | 2018-08-10 17:04 | Oncology Inp Consult Note ---
Date of Encounter: 08/10/18 Time of Encounter: 12:00 Assessment and Plan (1) Thrombosis of left upper extremity Status: Acute Assessment and plan: Patient with recurrent thrombosis, superficial currently right upper extremity PICC associated thrombosis, basilic vein clot from Doppler outside, due to poor IV access and need for continued PICC line for treatment of her osteomyelitis recommended low-dose anti-coagulation with Xarelto 10 mg daily until patient completes her treatment. She currently does not have any pain associated with thrombosis. Osteomyelitis of left lower extremity needing IV antibiotics for prolonged period of time. She has history of diabetes diabetic amputation. MRSA. ID following patient. History of diabetes mellitus. She does not have any contraindication to anti-coagulation from history. Kidney function is normal. Plan of care was reviewed bedside with patient who seemed to be agreeable with above - Data of Consult Requesting Physician: Ga Alexandra DO Primary Care Provider: Shoshana Davis MD - Consult Narrative Reason for consult: thrombosis recurrent History of present illness: 57-year-old female, with hx diabetes, fibromyalgia, hyperlipidemia, hypertension, myocardial infarction, osteomyelitis of left to lower extremity updated stump, anxiety, depression, MRSA of the wound, local infection with prior different organisms, infectious disease recommending continued IV antibiotics through a PICC line. Patient had prior peak associated thrombosis d ue to which PICC line was discontinued 2. Patient had Doppler imaging at [facility] that showsnoncompressibility of the basilic vein--rt upper ext. Radial and ulnar veins were not identified. Hematology consulted with a question of recurrent thrombosis associated with PICC line, role for anti-coagulation. Patient denies any pain associated the right upper extremity she currently has a PICC line in the right upper extremity. She is limited IV access. She has a left stump wound that is in dressing. Past Med Surg Social Fam HX - Past Medical History Medical history: diabetes, fibromyalgia, hyperlipidemia, hypertension, myocardial infarction Additional medical history: MRSA wound, gout Psychiatric history: anxiety, bipolar, depression - Past Surgical History Surgical History: angioplasty/stent Additional surgical history: Left BKA, - Social History Smoking Status: Never smoker Smokeless Tobacco Status: No Alcohol use: none Drug use: none - Family History Father Hx Family Cardiac Disorders: Yes Mother Hx Family Cancer: Yes (ovarian, breast) Sister Hx Family Cardiac Disorders: Yes Medications and Allergies Albuterol Neb [Proventil Neb] 2.5 mg IH QID PRN 05/22/18 [History] Albuterol Sulfate [Proventil Inhaler] 1 - 2 puff IH Q4-6H PRN 05/22/18 [History] Allopurinol [Zyloprim 100 MG] 100 mg PO BID 05/22/18 [History] Atorvastatin Calcium [Lipitor] 80 mg PO DAILY 05/22/18 [History] Carvedilol [Coreg] 25 mg PO BID 05/22/18 [History] Fluticasone Propionate Nasal [Flonase] 1 spray NS DAILY 05/22/18 [History] Insulin Glargine,Hum.rec.anlog [Basaglar Kwikpen U-100] 30 units SQ DAILY 05/22/18 [History] Loratadine [Allergy Relief] 10 mg PO DAILY 05/22/18 [History] Montelukast [Singulair] 10 mg PO QPM 05/22/18 [History] Pantoprazole Sodium [Protonix] 40 mg PO DAILY 05/22/18 [History] Paroxetine HCl [Paxil Cr] 37.5 mg PO QAM 05/22/18 [History] Ropinirole HCl [Requip] 5 mg PO HS 05/22/18 [History] SUMAtriptan Succinate [Imitrex] 100 mg PO AD PRN MDD 200MG/24HR 05/22/18 [History] Ziprasidone [Geodon] 80 mg PO HS 05/22/18 [History] raNITIdine HCl [Zantac] 150 mg PO BID 05/22/18 [History] Lisinopril/Hydrochlorothiazide [Zestoretic 20-12.5 mg Tablet] 1 tab PO DAILY 05/23/18 [History] Magic Mouthwash 15 ml PO QID PRN 05/23/18 [History] Pregabalin [Lyrica] 25 mg PO TID 07/17/18 [History] Amitriptyline HCl 150 mg PO HS 07/19/18 [History] Ergocalciferol (VITAMIN D2) [Vitamin D2] 50,000 unit PO QWEEK 07/19/18 [History] Nitroglycerin [Nitrostat] 0.4 mg SL AD PRN 07/19/18 [History] OXcarbazepine [Oxcarbazepine] 300 mg PO QAM 07/19/18 [History] OxyCODONE Immed Rel [Roxicodone 10 MG] 10 mg PO TID PRN 07/19/18 [History] Ampicillin 2 gm IV Q4H #99 vial 07/22/18 [Rx] Cyclobenzaprine HCl 10 mg PO BID PRN 08/09/18 [History] Guaifenesin [Mucus Relief] 400 mg PO Q4H PRN 08/09/18 [History] HydrOXYzine Pamoate [Vistaril] 50 mg PO DAILY 08/09/18 [History] Meloxicam 15 mg PO DAILY 08/09/18 [History] Mometasone Furoate [Asmanex] 1 puff IH BID 08/09/18 [History] Nystatin [Nystatin Suspension] 5 ml MM QID 08/09/18 [History] OLANZapine [Zyprexa] 5 mg PO DAILY 08/09/18 [History] OXcarbazepine [Oxcarbazepine] 600 mg PO HS 08/09/18 [History] Ondansetron HCl 8 mg PO Q8H PRN 08/09/18 [History] Venlafaxine HCl [Venlafaxine HCl ER] 75 mg PO DAILY 08/09/18 [History] lamoTRIgine [Lamotrigine] 200 mg PO BID 08/09/18 [History] Allergy/AdvReac Type Severity Reaction Status Date / Time acetaminophen Allergy Nausea Verified 07/17/18 23:07 [From Darvocet-N 100] escitalopram [From Lexapro] Allergy Confusion Verified 07/17/18 23:07 latex Allergy See Verified 07/17/18 23:07 Comments levofloxacin [From Levaquin] Allergy Nausea Verified 07/17/18 23:07 [employer] Allergy Confusion Verified 07/17/18 23:07 propoxyphene Allergy Nausea Verified 07/17/18 23:07 [From Darvocet-N 100] sumatriptan [From Imitrex] Allergy See Verified 07/17/18 23:07 Comments hydrocodone AdvReac See Verified 07/17/18 23:07 Comments Additional comments: denies fever chills Additional comments: denied cp, SOB Additional comments: no diarrhea or hx GI bleeding Musculoskeletal: Present: arthralgias Additional comments: denies headaches, +neuropathy Oncology - Exam - Constitutional General appearance: obese - Head Head exam: Present: atraumatic, normal inspection - Eye Eye exam: Present: sclera anicteric - ENT ENT exam: Present: mucous membranes moist - Neck Neck exam: Present: full ROM - Respiratory Respiratory exam: Present: CTAB - Cardiovascular Cardiovascular exam: Present: +S1, +S2 - GI/Abdominal GI/Abdominal exam: Present: normal bowel sounds, soft - Extremities Exam Additional comments: LLext amputation. RUExt PICC no swelling - Neurological Exam Neurological exam: Present: alert, CN II-XII intact, oriented X3, no focal deficits - Psychiatric Psychiatric exam: Present: normal mood Consult Discharge Plan - Plan Referrals: Shoshana Davis MD [Primary Care Provider] - 08/18/18 12:40 pm () Inpatient Charges Provider: Dr. Willem Hawkins Consult - Inpatient: [id number]
[2018-08-10] MEDS: Insulin DETEMIR 100 UNIT/ML X5UNITS SQ SCH (18:04)
--- NOTE | 2018-08-10 20:29 | Orthopedic Consult Note ---
Date of Encounter: 08/10/18 Time of Encounter: 20:16 History of Present Illness Chief complaint: Recurrent wound of left BKA stump HPI: Ms. Kirby is a 57 year old female who underwent a below-knee amputation in the somewhat distant past. This was followed by an I&D and placement of a bone cement antibiotic spacer was cemented liver high doses of antibiotic to her am putation site. History is unclear and I am assuming this is the treatment the patient had. I first met the patient in May of this year when she presented with a draining wound and findings consistent with an infection about her distal tibia in her BKA stump. The patient did undergo removal of the cement spacer and placement of dissolvable antibiotic-containing beads as well as debridement of the wound and limited closure. The patient's follow-up has been spotty. The patient was seen in the office several times postop at which point it was noted that she had breakdown of her wound. She has been seen and treated at the wound care clinic at [facility] with the use of a wound VAC which appeared to help with wound healing. The patient has also been seen and treated by infectious disease at [facility] though the patient's follow-up again has been intermittent and her compliance has been spotty at best. The patient has had a PICC line and was treated with IV antibiotics. She said episodes of PICC line occlusion requiring changes. The patient was recently admitted with a nonfunctional PICC line and I was asked to see her in regards to her left BKA. I reviewed the patient's completed history and physical examination and of the current medical record. Patient is currently afebrile. Pertinent orthopedic examination reveals the skin of the BKA stump to be unremarkable: At the very tip of the stump. Here she has about a 2 cm opening. There is some slough but no evidence of purulent drainage at this time. There is heaped up granulation and other tissue present. Knee x-rays reveal that the previously placed absorbable antibiotic beads have dissolved. No evidence of bony destructive changes. Soft tissue shadow consistent with the chronic wound. Current white blood cell count is normal. No current wound cultures are available. The patient did have a positive nasal screen for MRSA. Patient's blood sugars remain elevated at nearly 300. No CRP or ESR currently. Impression: Nonhealing wound left BKA stump, possible deep-seated infection Recommendation: Discussed with the patient that her x-rays actually are improved and clinically I do not see any evidence of a severe infectious process or requires urgent surgery. We discussed that we may not be able to eradicate the infection and that ultimately she may require a above-knee amputation to treat the wound and a chronic osteomyelitis. Currently the options would be to continue with IV antibiotics and local wound care with the attempts to close the wound. The patient is aware that as long as there is no deep-seated infection and the wound heals would be able to continue current treatment with IV antibiotics. If there is a deep-seated infection I suspect she will develop a sinus tract and will have a chronic non-healing and draining wound. The other option will be to proceed with a another debridement and attempted wound closure over a drain. The patient is adamant that she wants no further surgical intervention and wants to try a continued conservative approach. Discussed that this is reasonable as long she does not appear septic or in extremeness. We will continue to treat her conservatively with intravenous antibiotics and resume care with the wound care center at [facility] upon discharge. She will follow up with me in the office as scheduled as an outpatient. Thank you very much for allowing me to see and care for Mrs. Kirby. Sincerely, Thompson Fernandez,DO Past Med Surg Social Fam HX - Past Medical History Medical history: diabetes, fibromyalgia, hyperlipidemia, hypertension, myocardial infarction Additional medical history: MRSA wound, gout Psychiatric history: anxiety, bipolar, depression - Past Surgical History Surgical History: angioplasty/stent Additional surgical history: Left BKA, - Social History Smoking Status: Never smoker Smokeless Tobacco Status: No Alcohol use: none Drug use: none - Family History Father Hx Family Cardiac Disorders: Yes Mother Hx Family Cancer: Yes (ovarian, breast) Sister Hx Family Cardiac Disorders: Yes Medications and Allergies Albuterol Neb [Proventil Neb] 2.5 mg IH QID PRN 05/22/18 [History] Albuterol Sulfate [Proventil Inhaler] 1 - 2 puff IH Q4-6H PRN 05/22/18 [History] Allopurinol [Zyloprim 100 MG] 100 mg PO BID 05/22/18 [History] Atorvastatin Calcium [Lipitor] 80 mg PO DAILY 05/22/18 [History] Carvedilol [Coreg] 25 mg PO BID 05/22/18 [History] Fluticasone Propionate Nasal [Flonase] 1 spray NS DAILY 05/22/18 [History] Insulin Glargine,Hum.rec.anlog [Basaglar Kwikpen U-100] 30 units SQ DAILY 05/22/18 [History] Loratadine [Allergy Relief] 10 mg PO DAILY 05/22/18 [History] Montelukast [Singulair] 10 mg PO QPM 05/22/18 [History] Pantoprazole Sodium [Protonix] 40 mg PO DAILY 05/22/18 [History] Paroxetine HCl [Paxil Cr] 37.5 mg PO QAM 05/22/18 [History] Ropinirole HCl [Requip] 5 mg PO HS 05/22/18 [History] SUMAtriptan Succinate [Imitrex] 100 mg PO AD PRN MDD 200MG/24HR 05/22/18 [History] Ziprasidone [Geodon] 80 mg PO HS 05/22/18 [History] raNITIdine HCl [Zantac] 150 mg PO BID 05/22/18 [History] Lisinopril/Hydrochlorothiazide [Zestoretic 20-12.5 mg Tablet] 1 tab PO DAILY 05/23/18 [History] Magic Mouthwash 15 ml PO QID PRN 05/23/18 [History] Pregabalin [Lyrica] 25 mg PO TID 07/17/18 [History] Amitriptyline HCl 150 mg PO HS 07/19/18 [History] Ergocalciferol (VITAMIN D2) [Vitamin D2] 50,000 unit PO QWEEK 07/19/18 [History] Nitroglycerin [Nitrostat] 0.4 mg SL AD PRN 07/19/18 [History] OXcarbazepine [Oxcarbazepine] 300 mg PO QAM 07/19/18 [History] OxyCODONE Immed Rel [Roxicodone 10 MG] 10 mg PO TID PRN 07/19/18 [History] Ampicillin 2 gm IV Q4H #99 vial 07/22/18 [Rx] Cyclobenzaprine HCl 10 mg PO BID PRN 08/09/18 [History] Guaifenesin [Mucus Relief] 400 mg PO Q4H PRN 08/09/18 [History] HydrOXYzine Pamoate [Vistaril] 50 mg PO DAILY 08/09/18 [History] Meloxicam 15 mg PO DAILY 08/09/18 [History] Mometasone Furoate [Asmanex] 1 puff IH BID 08/09/18 [History] Nystatin [Nystatin Suspension] 5 ml MM QID 08/09/18 [History] OLANZapine [Zyprexa] 5 mg PO DAILY 08/09/18 [History] OXcarbazepine [Oxcarbazepine] 600 mg PO HS 08/09/18 [History] Ondansetron HCl 8 mg PO Q8H PRN 08/09/18 [History] Venlafaxine HCl [Venlafaxine HCl ER] 75 mg PO DAILY 08/09/18 [History] lamoTRIgine [Lamotrigine] 200 mg PO BID 08/09/18 [History] Allergy/AdvReac Type Severity Reaction Status Date / Time acetaminophen Allergy Nausea Verified 07/17/18 23:07 [From Darvocet-N 100] escitalopram [From Lexapro] Allergy Confusion Verified 07/17/18 23:07 latex Allergy See Verified 07/17/18 23:07 Comments levofloxacin [From Levaquin] Allergy Nausea Verified 07/17/18 23:07 [place] Allergy Confusion Verified 07/17/18 23:07 propoxyphene Allergy Nausea Verified 07/17/18 23:07 [From Darvocet-N 100] sumatriptan [From Imitrex] Allergy See Verified 07/17/18 23:07 Comments hydrocodone AdvReac See Verified 07/17/18 23:07 Comments All Systems Reviewed: The remainder of the systems were reviewed and are negative Physical Exam - Constitutional Vitals: Temp Pulse Resp BP Pulse Ox 98.0 F 109 18 128/84 97 08/10/18 19:13 08/10/18 19:13 08/10/18 20:04 08/10/18 19:13 08/10/18 20:04 Results - Labs Result Diagrams: 08/10/18 05:58 08/10/18 05:58 Labs: Abnormal lab results Hgb 9.9 g/dL (11.5-15.4) L 08/10/18 05:58 Hct 30.8 % (35.3-44.9) L 08/10/18 05:58 MCV 78.6 fL (83.0-100.0) L 08/10/18 05:58 MCH 25.3 pg (28.0-33.3) L 08/10/18 05:58 MCHC 30.9 g/dL (31.6-35.5) L 08/09/18 03:43 PT 12.2 Seconds (9.4-12.1) H 08/08/18 01:23 Sodium 135 mEq/L (136-145) L 08/09/18 03:43 Potassium 3.3 mEq/L (3.5-5.1) L 08/10/18 05:58 Chloride 97 mEq/L (98-107) L 08/09/18 03:43 1.53 mg/dL (0.60-1.20) H 08/09/18 03:43 Est GFR ( Amer) 43 (> 60) L 08/09/18 03:43 Est GFR (Non-Af Amer) 35 (> 60) L 08/09/18 03:43 Glucose 298 mg/dL (70-105) H 08/10/18 05:58 POC Glucose 261 mg/dL (70-99) H 08/09/18 20:01 Calcium 8.2 mg/dL (8.6-10.3) L 08/10/18 05:58 Magnesium 1.3 mg/dL (1.6-2.6) L 08/09/18 03:43 Positive (Negative) A 08/08/18 09:11 H & H 08/10/18 Range/Units 05:58 Hgb 9.9 L (11.5-15.4) g/dL Hct 30.8 L (35.3-44.9) % All other labs normal. - Diagnostic results Knee x-ray: image reviewed Consult Discharge Plan - Plan Referrals: Shoshana Davis MD [Primary Care Provider] - 08/18/18 12:40 pm ()
[2018-08-10] MEDS: rOPINIRole 1 MG TABLET PO SCH (21:51)
[2018-08-10] MEDS: Ziprasidone 80 MG CAPSULE PO SCH (21:56)
[2018-08-11] MEDS: Ampicillin 2 GM in 0.9 % Sodium Chloride Mini Bag 100 ML IVPB SCH ×6 (00:08→16:59)
[2018-08-11 05:24] LABS: Basophils % 0.3 %; Eosinophils # 0.2 K/mcL (0.0-0.6); Eosinophils % 2.9 %; Hematocrit 30.6 % (35.3-44.9); Hemoglobin 9.7 g/dL (11.5-15.4); Immature Granulocytes % 0.5 % (0-4); Lymphocytes # 1.9 K/mcL (0.6-4.6); Lymphocytes % 29.5 %; Mean Corpuscular HGB Conc 31.7 g/dL (31.6-35.5); Mean Corpuscular Hemoglobin 25.5 pg (28.0-33.3); Mean Corpuscular Volume 80.5 fL (83.0-100.0); Mean Platelet Volume 9.8 fL (9.4-12.4); Monocytes # 0.3 K/mcL (0.0-1.3); Monocytes % 5.1 %; Neutrophils # 3.9 K/mcL (1.6-8.9); Platelet Count 198 K/mcL (140-400); Segmented Neutrophils % 61.7 %; White Blood Count 6.3 K/mcL (4.3-11.1)
[2018-08-11 05:44] LABS: BUN/Creatinine Ratio 15 (6-26); Blood Urea Nitrogen 14 mg/dL (6-20); Calcium 8.3 mg/dL (8.6-10.3); Carbon Dioxide 27 mEq/L (23-29); Chloride 104 mEq/L (98-107); Glucose 280 mg/dL (70-105); Osmolality,Calculated 299 (280-300); Potassium 4.1 mEq/L (3.5-5.1); Sodium 139 mEq/L (136-145); eGFR For African Americans > 60 (> 60); eGFR For Non-African Americans > 60 (> 60)
[2018-08-11] MEDS ORDERED: *HR* Rivaroxaban 10 MG TABLET PO SCH (06:00)
[2018-08-11] MEDS: *HR* OxyCODONE Immed Rel 5 MG TABLET PO SCH ×2 (06:25→12:47)
[2018-08-11] MEDS: Famotidine 20 MG TABLET PO SCH (06:25)
[2018-08-11] MEDS: Insulin LISPRO 300 UNITS/3 ML VIAL SQ SCH ×5 (07:13→15:53)
[2018-08-11] MEDS: hydrOXYzine pamoate 25 MG CAPSULE PO SCH (07:22)
[2018-08-11] MEDS: OXcarbazepine 150 MG TABLET PO SCH (07:22)
[2018-08-11] MEDS: Pregabalin 25 MG CAPSULE PO SCH ×2 (07:23→14:39)
[2018-08-11] MEDS: Venlafaxine XR (24 HR) 75 MG CAP.ER.24H PO SCH (07:23)
[2018-08-11] MEDS: OLANZapine 5 MG TAB.RAPDIS PO SCH (07:23)
[2018-08-11] MEDS: Loratadine 10 MG TABLET PO SCH (07:23)
[2018-08-11] MEDS ORDERED: Heparin 1,000 UNITS/500 mL 500 ML ONE (12:01)
[2018-08-11] MEDS ORDERED: 0.9 % Sodium Chloride 500 ML ONE (12:09)
[2018-08-11] MEDS ORDERED: *HR* Midazolam HCl 2 MG/2 ML VIAL IVP ONE (12:11)
[2018-08-11] MEDS ORDERED: *HR* FentaNYL (PF) 100 MCG/2 ML VIAL IVP ONE (12:11)
[2018-08-11] MEDS ORDERED: *HR* Midazolam HCl 2 MG/2 ML VIAL ONE (12:13)
[2018-08-11] MEDS ORDERED: *HR* FentaNYL (PF) 100 MCG/2 ML VIAL ONE (12:13)
--- NOTE | 2018-08-11 12:51 | Pre-Sedation Evaluation ---
Pre-sedation evaluation - Pre-sedation checklist Date of procedure: 08/11/18 Procedure: tunneled PICC Recent Vitals: Last Vital Signs Temp 98.0 F 08/11/18 11:32 Pulse 75 08/11/18 12:24 Resp 10 08/11/18 12:24 BP 148/86 08/11/18 12:24 Pulse Ox 96 08/11/18 12:24 Airway Assessment: Patient can open mouth completely, TMJ function normal, Micrognathia (under-bite, receding chin) absent, Neck with adequate range of motion ASA Classification *see protocol: CLASS II-Mild systemic disease Plan of Care: Pt appropriate candidate for procedure/moderate/conscious sedation, Risks/benefits of procedure/sedation discussed w/ patient/family, If not NPO; Risk of intake outweiged by necessity to perform procedure
--- NOTE | 2018-08-11 12:52 | IR Procedure Note ---
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
[2018-08-11 15:22] VITALS: BP 120/79
--- NOTE | 2018-08-11 15:31 | Physician Discharge Referral ---
Home Health/Hosp Referral Info Transfer to: Home Health Provider in Charge Post Discharge: PCP - Diagnosis (1) Hypotension Priority: Secondary Status: Suspected (2) Acute thrombosis of left basilic vein Priority: Primary Status: Acute (3) Cellulitis of leg without foot, left Priority: Secondary Status: Acute (4) Type 2 diabetes mellitus Priority: Secondary Status: Chronic (5) History of left below knee amputation Priority: Secondary Status: Chronic (6) CAD (coronary artery disease) Priority: Secondary Status: Chronic (7) Hypertension Priority: Secondary Status: Chronic (8) Neuropathic pain Priority: Secondary Status: Suspected (9) Diabetes mellitus with hyperglycemia Priority: Secondary Status: Chronic - Respiratory Orders None Smoking Cessation: Smoking cessation has been advised. For more information, call the [place] Tobacco Quit Line at 9-742-HYQK-NOW. - Diet/Nutrition Diet/Nutrition Orders: No Added Salt (JOSÉ LUIS), No Concentrated Sweets - Activity Activity Orders: Up ad edgar - Services Needed Following services are medically necessary services: Nursing - Transfer Medications Home Medications: Albuterol Neb [Proventil Neb] 2.5 mg IH QID PRN 05/22/18 [History] Albuterol Sulfate [Proventil Inhaler] 1 - 2 puff IH Q4-6H PRN 05/22/18 [History] Allopurinol [Zyloprim 100 MG] 100 mg PO BID 05/22/18 [History] Atorvastatin Calcium [Lipitor] 80 mg PO DAILY 05/22/18 [History] Carvedilol [Coreg] 25 mg PO BID 05/22/18 [History] Fluticasone Propionate Nasal [Flonase] 1 spray NS DAILY 05/22/18 [History] Insulin Glargine,Hum.rec.anlog [Basaglar Kwikpen U-100] 30 units SQ DAILY 05/22/18 [History] Loratadine [Allergy Relief] 10 mg PO DAILY 05/22/18 [History] Montelukast [Singulair] 10 mg PO QPM 05/22/18 [History] Pantoprazole Sodium [Protonix] 40 mg PO DAILY 05/22/18 [History] Paroxetine HCl [Paxil Cr] 37.5 mg PO QAM 05/22/18 [History] Ropinirole HCl [Requip] 5 mg PO HS 05/22/18 [History] SUMAtriptan Succinate [Imitrex] 100 mg PO AD PRN MDD 200MG/24HR 05/22/18 [History] Ziprasidone [Geodon] 80 mg PO HS 05/22/18 [History] raNITIdine HCl [Zantac] 150 mg PO BID 05/22/18 [History] Lisinopril/Hydrochlorothiazide [Zestoretic 20-12.5 mg Tablet] 1 tab PO DAILY 05/23/18 [History] Magic Mouthwash 15 ml PO QID PRN 05/23/18 [History] Pregabalin [Lyrica] 25 mg PO TID 07/17/18 [History] Amitriptyline HCl 150 mg PO HS 07/19/18 [History] Ergocalciferol (VITAMIN D2) [Vitamin D2] 50,000 unit PO QWEEK 07/19/18 [History] Nitroglycerin [Nitrostat] 0.4 mg SL AD PRN 07/19/18 [History] OXcarbazepine [Oxcarbazepine] 300 mg PO QAM 07/19/18 [History] OxyCODONE Immed Rel [Roxicodone 10 MG] 10 mg PO TID PRN 07/19/18 [History] Ampicillin 2 gm IV Q4H #99 vial 07/22/18 [Rx] Cyclobenzaprine HCl 10 mg PO BID PRN 08/09/18 [History] Guaifenesin [Mucus Relief] 400 mg PO Q4H PRN 08/09/18 [History] HydrOXYzine Pamoate [Vistaril] 50 mg PO DAILY 08/09/18 [History] Meloxicam 15 mg PO DAILY 08/09/18 [History] Mometasone Furoate [Asmanex] 1 puff IH BID 08/09/18 [History] Nystatin [Nystatin Suspension] 5 ml MM QID 08/09/18 [History] OLANZapine [Zyprexa] 5 mg PO DAILY 08/09/18 [History] OXcarbazepine [Oxcarbazepine] 600 mg PO HS 08/09/18 [History] Ondansetron HCl 8 mg PO Q8H PRN 08/09/18 [History] Venlafaxine HCl [Venlafaxine HCl ER] 75 mg PO DAILY 08/09/18 [History] lamoTRIgine [Lamotrigine] 200 mg PO BID 08/09/18 [History] Allergies/Adverse Reactions: Allergy/AdvReac Type Severity Reaction Status Date / Time acetaminophen Allergy Nausea Verified 07/17/18 23:07 [From Darvocet-N 100] escitalopram [From Lexapro] Allergy Confusion Verified 07/17/18 23:07 latex Allergy See Verified 07/17/18 23:07 Comments levofloxacin [From Levaquin] Allergy Nausea Verified 07/17/18 23:07 [place] Allergy Confusion Verified 07/17/18 23:07 propoxyphene Allergy Nausea Verified 07/17/18 23:07 [From Darvocet-N 100] sumatriptan [From Imitrex] Allergy See Verified 07/17/18 23:07 Comments hydrocodone AdvReac See Verified 07/17/18 23:07 Comments Certification: Further, I certify that my clinical findings support that this patient is homebound (i.e. absences from home require considerable and taxing effort and are for medical reasons or jain services or infrequently or short duration when for other reasons) because: Homebound Reason: Patient requires assistance of a person or device to safely leave home, Leaving home requires considerable and taxing effort due to condition Attestation: My signature below is to certify that this patient is under my care and that I, or nurse practitioner, or a physician's assistant store manager trainee working with me, has a [id number] encounter with this patient.
--- NOTE | 2018-08-11 16:00 | Infectious Disease Progress No ---
ID Progress Note Date of Encounter: 08/11/18 Time of Encounter: 16:00 - Subjective Subjective: Patient seen and examined. Appears comfortable sitting at bedside. Patient denies any headache, chest pain or shortness of breath no cough no sputum production. Patient eager to go home. Vital signs noted Labs reviewed Cultures pending - Objective CBC & Chem 7: 08/11/18 04:39 08/11/18 04:39 - Exam Vitals: Temp Pulse Resp BP Pulse Ox 97.9 F 108 16 120/79 97 08/11/18 15:22 08/11/18 15:22 08/11/18 15:22 08/11/18 15:22 08/11/18 15:22 Exam: GENERAL: Comfortable. Laying in bed NAD HEENT: SHY, EOMI LUNGS: Good air sounds bilaterally, no wheezing or rhonchi CV: RRR, S1 S2 ABDOMEN: Soft, nontender, + bowel sounds EXT: Left BKA stump with an ulcerated deep stage IV wound is tracking about 4 i nches but I could not palpate bone. No active drainage or surrounding cellulitis. NEURO: A&OX3; no focal deficit - Assessment and Plan (1) Osteomyelitis Status: Chronic 05/23/2018 MRI: Large rim-enhancing fluid collection of the stump measuring 2.1x3.8x2 cm most compatible with a large abscess. Surrounding cellulitis. Osteomyelitis of the distal stump with patchy marrow edema and postcontrast enhancement suspicious for osteomyelitis proximally. 05/29/2018: Incision and drainage and debridement of the left below-knee amputation and removal of cement plug left tibia and insertion of antibiotic beads left tibia; Intra-Op cultures grew Serratia marcescens pansensitive. 06/01/18: patient discharged on ceftriaxone 2 grams daily no labs were sent to us: will request labs; continue rocephine 2 grams daily Initially the plan was to treat through 07/13/2018 Patient had no wound dehiscence apparently. She has met to follow-ups. So I have not been aware that she had the wound dehiscence and wound VAC was recently placed. Labs were sent to us and her ESR is 53 WBC is 7.95 creatinine 1.25 and his CRP is 45. Status post admission to [place] 07/18/2018. Swab cultures positive for ampicillin sensitive Enterococcus faecalis Patient was switched to IV ampicillin continuous pump Continue current treatment regimen with the plan to treat for 6 weeks through 08/31/2018. 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 use: with halfway use Diabetes mellitus complication status: with skin complications Diabetes mellitus complication detail: with other skin complication Qualified Code(s): E11.628 - Type 2 diabetes mellitus with other skin complications; Z79.4 - long term care social worker (current) use of insulin SNOMED Code(s): 76194140 (4) Abscess Status: Acute SNOMED Code(s): 739875032 (5) PICC line infiltration Status: Acute this is the second time in 3 weeks patient's picc line gets pulled i'm concerned for non compliance and concerned that patient not taking antibiotics like she should also concerned for her living conditions. consider placement? will d/w patient Qualifiers: Encounter type: initial encounter Qualified Code(s): T82.898A - Other specified complication of vascular prosthetic devices, implants and grafts, initial encounter SNOMED Code(s): 40085347, 754258035 - VTE Documentation of Mechanical Device: Graduated compression elastic hosiery Consult Discharge Plan - Plan Instructions: Cyclobenzaprine (By mouth), Oxycodone, Rapid Release (By mouth), Rivaroxaban (By mouth), Cellulitis (DC), Peripheral Vascular Disorders (DC), Abscess (GEN), Anxiety (DC), Abscess, Fur Nailer (GEN) Additional Instructions: Follow up with ID and Dr Fernandez as scheduled. Referrals: Shoshana Davis MD [Primary Care Provider] - 08/18/18 12:40 pm () Prescriptions: Cyclobenzaprine HCl 10 mg PO BID PRN 10 Days #20 tablet PRN Reason: Muscle Spasm OxyCODONE Immed Rel [Roxicodone 10 MG] 10 mg PO TID PRN 5 Days #15 tablet PRN Reason: Pain Rivaroxaban [Xarelto] 10 mg PO 0600 #45 tablet
--- NOTE | 2018-08-11 16:37 | Discharge Summary ---
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 transplanted heart: [place] heart Associated angina: without angina Qualified Code(s): I25.10 - Atherosclerotic heart disease of [place] coronary artery with out angina pectoris (7) Hypertension Status: Chronic Qualifiers: Hypertension type: essential hypertension Qualified Code(s): I10 - Essential (primary) hypertension (8) Neuropathic pain Status: Suspected (9) Diabetes mellitus with hyperglycemia Status: Chronic Qualifiers: Diabetes mellitus type: type 2 Diabetes mellitus correction insulin use: without terminal gauger supervisor use Qualified Code(s): E11.65 - Type 2 diabetes mellitus with hyperglycemia Hospital course: Ms. Kirby is a 57 year old female - Time Spent with Patient Total time spent providing and/or coordinating discharge services: - Discharge Medications Prescriptions: New Rivaroxaban [Xarelto] 10 mg PO 0600 #45 tablet Insulin DETEMIR [Levemir] 35 unit SQ QPM [id number] Continued Ziprasidone [Geodon] 80 mg PO HS Montelukast [Singulair] 10 mg PO QPM Ropinirole HCl [Requip] 5 mg PO HS raNITIdine HCl [Zantac] 150 mg PO BID Paroxetine HCl [Paxil Cr] 37.5 mg PO QAM Pantoprazole Sodium [Protonix] 40 mg PO DAILY Loratadine [Allergy Relief] 10 mg PO DAILY SUMAtriptan Succinate [Imitrex] 100 mg PO AD PRN MDD 200MG/24HR PRN Reason: Migraine Headache Fluticasone Propionate Nasal [Flonase] 1 spray NS DAILY Carvedilol [Coreg] 25 mg PO BID Atorvastatin Calcium [Lipitor] 80 mg PO DAILY Allopurinol [Zyloprim 100 MG] 100 mg PO BID Albuterol Neb [Proventil Neb] 2.5 mg IH QID PRN PRN Reason: Shortness Of Breath Albuterol Sulfate [Proventil Inhaler] 1 - 2 puff IH Q4-6H PRN PRN Reason: Shortness Of Breath Magic Mouthwash 15 ml PO QID PRN PRN Reason: MOUTH SORES Pregabalin [Lyrica] 25 mg PO TID Amitriptyline HCl 150 mg PO HS Ergocalciferol (VITAMIN D2) [Vitamin D2] 50,000 unit PO QWEEK Nitroglycerin [Nitrostat] 0.4 mg SL AD PRN PRN Reason: Chest Pain OXcarbazepine [Oxcarbazepine] 300 mg PO QAM Ampicillin 2 gm IV Q4H #99 vial Meloxicam 15 mg PO DAILY OXcarbazepine [Oxcarbazepine] 600 mg PO HS Venlafaxine HCl [Venlafaxine HCl ER] 75 mg PO DAILY Guaifenesin [Mucus Relief] 400 mg PO Q4H PRN PRN Reason: Cough HydrOXYzine Pamoate [Vistaril] 50 mg PO DAILY lamoTRIgine [Lamotrigine] 200 mg PO BID Mometasone Furoate [Asmanex] 1 puff IH BID Nystatin [Nystatin Suspension] 5 ml MM QID OLANZapine [Zyprexa] 5 mg PO DAILY Ondansetron HCl 8 mg PO Q8H PRN PRN Reason: Nausea Cyclobenzaprine HCl 10 mg PO BID PRN 10 Days #20 tablet PRN Reason: Muscle Spasm OxyCODONE Immed Rel [Roxicodone 10 MG] 10 mg PO TID PRN 5 Days #15 tablet PRN Reason: Pain Discontinued Insulin Glargine,Hum.rec.anlog [Basaglar Kwikpen U-100] 30 units SQ DAILY Lisinopril/Hydrochlorothiazide [Zestoretic 20-12.5 mg Tablet] 1 tab PO DAILY Home Medications: Albuterol Neb [Proventil Neb] 2.5 mg IH QID PRN 05/22/18 [History] Albuterol Sulfate [Proventil Inhaler] 1 - 2 puff IH Q4-6H PRN 05/22/18 [History] Allopurinol [Zyloprim 100 MG] 100 mg PO BID 05/22/18 [History] Atorvastatin Calcium [Lipitor] 80 mg PO DAILY 05/22/18 [History] Carvedilol [Coreg] 25 mg PO BID 05/22/18 [History] Fluticasone Propionate Nasal [Flonase] 1 spray NS DAILY 05/22/18 [History] Loratadine [Allergy Relief] 10 mg PO DAILY 05/22/18 [History] Montelukast [Singulair] 10 mg PO QPM 05/22/18 [History] Pantoprazole Sodium [Protonix] 40 mg PO DAILY 05/22/18 [History] Paroxetine HCl [Paxil Cr] 37.5 mg PO QAM 05/22/18 [History] Ropinirole HCl [Requip] 5 mg PO HS 05/22/18 [History] SUMAtriptan Succinate [Imitrex] 100 mg PO AD PRN MDD 200MG/24HR 05/22/18 [History] Ziprasidone [Geodon] 80 mg PO HS 05/22/18 [History] raNITIdine HCl [Zantac] 150 mg PO BID 05/22/18 [History] Magic Mouthwash 15 ml PO QID PRN 05/23/18 [History] Pregabalin [Lyrica] 25 mg PO TID 07/17/18 [History] Amitriptyline HCl 150 mg PO HS 07/19/18 [History] Ergocalciferol (VITAMIN D2) [Vitamin D2] 50,000 unit PO QWEEK 07/19/18 [History] Nitroglycerin [Nitrostat] 0.4 mg SL AD PRN 07/19/18 [History] OXcarbazepine [Oxcarbazepine] 300 mg PO QAM 07/19/18 [History] Ampicillin 2 gm IV Q4H #99 vial 07/22/18 [Rx] Guaifenesin [Mucus Relief] 400 mg PO Q4H PRN 08/09/18 [History] HydrOXYzine Pamoate [Vistaril] 50 mg PO DAILY 08/09/18 [History] Meloxicam 15 mg PO DAILY 08/09/18 [History] Mometasone Furoate [Asmanex] 1 puff IH BID 08/09/18 [History] Nystatin [Nystatin Suspension] 5 ml MM QID 08/09/18 [History] OLANZapine [Zyprexa] 5 mg PO DAILY 08/09/18 [History] OXcarbazepine [Oxcarbazepine] 600 mg PO HS 08/09/18 [History] Ondansetron HCl 8 mg PO Q8H PRN 08/09/18 [History] Venlafaxine HCl [Venlafaxine HCl ER] 75 mg PO DAILY 08/09/18 [History] lamoTRIgine [Lamotrigine] 200 mg PO BID 08/09/18 [History] Cyclobenzaprine HCl 10 mg PO BID PRN 10 Days #20 tablet 08/11/18 [Rx] Insulin DETEMIR [Levemir] 35 unit SQ QPM [id number] 08/11/18 [Rx] OxyCODONE Immed Rel [Roxicodone 10 MG] 10 mg PO TID PRN 5 Days #15 tablet 08/11/18 [Rx] Rivaroxaban [Xarelto] 10 mg PO 0600 #45 tablet 08/11/18 [Rx] Allergies/Adverse Reactions: Allergy/AdvReac Type Severity Reaction Status Date / Time acetaminophen Allergy Nausea Verified 07/17/18 23:07 [From Darvocet-N 100] escitalopram [From Lexapro] Allergy Confusion Verified 07/17/18 23:07 latex Allergy See Verified 07/17/18 23:07 Comments levofloxacin [From Levaquin] Allergy Nausea Verified 07/17/18 23:07 [place] Allergy Confusion Verified 07/17/18 23:07 propoxyphene Allergy Nausea Verified 07/17/18 23:07 [From Darvocet-N 100] sumatriptan [From Imitrex] Allergy See Verified 07/17/18 23:07 Comments hydrocodone AdvReac See Verified 07/17/18 23:07 Comments Date of admission: 08/07/18 17:44 Primary care physician: Shoshana Davis MD Consults: 08/07/18 22:31 Consult to PICC team [Consult to Invasive Line Access Team] [CONS] Routine Reason for Consult: Right upper extremity PICC line not secured, thrombus, bleeding at insertion site Line Type: PICC 08/07/18 22:51 Consult to Wound Care [CONS] Routine Reason for Consult: Left lower extremity below the knee amputation with wound at stump site. Follows outpatient with Dr. Franco of infectious disease, currently on IV antibiotics Call Completed: No 08/10/18 12:31 Consult to Oncology Hematology [CONS] Routine Consulting Provider: Iris Hawkins Reason for Consult: Recurrent PICC thrombosis, recommendation on anticoagulation Call Completed: Yes 08/10/18 13:46 Consult to Infectious Diseases [CONS] Routine Consulting Provider: Infectious [facility] [place] Reason for Consult: Osteomyelitis of BKA stump Call Completed: Yes Consult to Orthopedic Surgery [CONS] Routine Consulting Provider: Thompson Fernandez Reason for Consult: osteomyelitis of BKA stump Call Completed: Yes 08/10/18 14:21 Consult to Interventional Radiology [CONS] Routine Consulting Provider: Radiology Interventional [facility] Reason for Consult: Placement of PICC, hx of thrombosis in b/l UE s/p picc placements Call Completed: Yes - Constitutional Vitals: Temp Pulse Resp BP Pulse Ox 97.9 F 108 16 120/79 97 08/11/18 15:22 08/11/18 15:22 08/11/18 15:22 08/11/18 15:22 08/11/18 15:22 - Patient Status Disposition: Home Health Service Condition: Good - Discharge Instructions Instructions: Cyclobenzaprine (By mouth), Oxycodone, Rapid Release (By mouth), Rivaroxaban (By mouth), Cellulitis (DC), Peripheral Vascular Disorders (DC), Abscess (GEN), Anxiety (DC), Abscess, Resident Services Supervisor (GEN) Follow Up With: Shoshana Davis MD [Primary Care Provider] - 08/18/18 12:40 pm () Additional Instructions: Follow up with ID and Dr Fernandez as scheduled. - Attending Attestation I examined this patient and my medical decision-making was reviewed with the Resident Physician on 08/11/18. I agree with the documented findings, disposition and treatment plan as described except to the extent set forth below. Ms Kirby has been in observation for thrombosis around PICC line. She has had new tunneled PICC placed. She is now afebrile and ready for discharge home. She will resume prior abx treatment. 5 day pain meds given. Exam as above. <Jefe Sierra - Last Filed: 08/11/18 18:42> - NOTES TO OUTPATIENT PROVIDER Notes to Outpatient Provider: Admitted for PICC line thrombus and chronic osteomyelitis of Left BKA. PICC line replaced, patient discharged with low-dose xarelto for prevention of repeat thrombosis. Patient to be discharged with plan for 6 weeks IV ampicillin. Infectious Disease follow-up. Orders not resulted at time of discharge: Pending orders 08/11/18 15:05 Culture,Wound [RM] Routine Date of Encounter: 08/11/18 Time of Encounter: 10:00 - Discharge Diagnosis (1) Acute thrombosis of left basilic vein Priority: Primary Status: Acute Code(s): I82.612 - Acute embolism and thrombosis of superficial veins of left upper extremity SNOMED Code(s): 852242011208495 (2) Osteomyelitis Priority: Primary Status: Acute Qualifiers: Osteomyelitis type: other acute Osteomyelitis location: other site Qualified Code(s): M86.18 - Other acute osteomyelitis, other site Hospital course: Ms. Kirby is a 57 year old female with a left BKA stump infection who who was recently admitted back in May for this problem and was being treated outpatient with a PICC line and IV antibiotics. The patient was previously taken for an I and D with insertion of antibacterial beads and was sent home for close follow-up in the infectious disease clinic. She was being treated with 2 g Rocephin every 24 hours and was clinically improving however was lost to follow-up. Subsequently she developed a wound D has since been noticed that more pus was coming out, for which she went to see a Dr. Michel at [facility] who stated that the wound was tracking all the way to the bone. Cultures at that time were positive for staph epi, micrococcus, ampicillin sensitive enterococcus. Patient was admitted on 07/18/2018 for these problems and infectious disease and orthopedics were consulted. Patient was ultimately sent home with a continuous ampicillin pump and the plan to treat for 6 weeks starting on July 20. On August 07 the patient's PICC line became occluded and the infectious disease clinic requested she come to the emergency department. Since admission the patient has been afebrile with a maximum temperature of 99.1 mild tachycardia without tachypnea and a normal white count. Patient had elevated glucose but the remainder of her chemistries were normal. A MRSA screen was done which came back positive, patient was placed on contact isolation. Orthopedics was consult at and noted a 2 cm opening at the tip of the BKA stump with some slough but no evidence of purulent drainage, granulation tissue was present. Knee x-rays revealed that the antibiotic beads had dissolved and there was no evidence of bony destruction. They noted that she does not currently need surgery although ultimately if the infection cannot be cleared an AKA may be unavoidable the patient voiced strong opposition to any fu rther surgery and wish to proceed with conservative management at this time. Hematology was consult to regarding her PICC line thrombosis and recommended a replacement of the PICC line with low dose xarelto for outpatient management. The patient denied any systemic symptoms such as chills fevers night sweats chest pain shortness of breath cough nausea vomiting diarrhea or urinary symptoms and after replacement of her PICC line voiced a strong desire to be sent home. Infectious to disease agreed that the patient could be sent home with home health to complete a 6 week course of ampicillin IV. The patient was eating and drinking well, voiding normally, and her vitals remained stable throughout her stay. The patient was subsequently sent home with instructions for close follow-up with infectious disease and her primary care physician and was instructed to return immediately to the emergency department if there was a worsening of her symptoms or if she develop new systemic symptoms such as fever chills shortness of breath chest pain or worsening pain at the site of infection. Discharge discussed with: patient, nurse - Time Spent with Patient Total time spent providing and/or coordinating discharge services: Time spent: Greater than 30 minutes Date of admission: 08/07/18 17:44 Primary care physician: Shoshana Davis MD Consults: 08/07/18 22:31 Consult to PICC team [Consult to Invasive Line Access Team] [CONS] Routine Reason for Consult: Right upper extremity PICC line not secured, thrombus, bleeding at insertion site Line Type: PICC 08/07/18 22:51 Consult to Wound Care [CONS] Routine Reason for Consult: Left lower extremity below the knee amputation with wound at stump site. Follows outpatient with Dr. Joan of infectious disease, currently on IV antibiotics Call Completed: No 08/10/18 12:31 Consult to Oncology Hematology [CONS] Routine Consulting Provider: Iris Hawkins Reason for Consult: Recurrent PICC thrombosis, recommendation on anticoagulation Call Completed: Yes 08/10/18 13:46 Consult to Infectious Diseases [CONS] Routine Consulting Provider: Infectious Disease [place] Reason for Consult: Osteomyelitis of BKA stump Call Completed: Yes Consult to Orthopedic Surgery [CONS] Routine Consulting Provider: Thompson Fernandez Reason for Consult: osteomyelitis of BKA stump Call Completed: Yes 08/10/18 14:21 Consult to Interventional Radiology [CONS] Routine Consulting Provider: Radiology Interventional Cols Reason for Consult: Placement of PICC, hx of thrombosis in b/l UE s/p picc placements Call Completed: Yes Discharging clinician: Ga Alexandra Anticipated date of discharge: 08/11/18 - Constitutional Vitals: Temp Pulse Resp BP Pulse Ox 97.9 F 108 16 120/79 97 08/11/18 15:22 08/11/18 15:22 08/11/18 15:22 08/11/18 15:22 08/11/18 15:22 General appearance: Present: cooperative, A&O X 3, pleasant, no acute distress, answers questions appropriately Exam: Gen: Vitals noted. No acute distress. Eyes: anicteric sclerae, moist conjunctivae; no lid-lag; Pupils equal and reactive to light HENT: Atraumatic; oropharynx clear with moist mucous membranes and no mucosal ulcerations; normal hard and soft palate Neck: Trachea midline; supple, no thyromegaly or lymphadenopathy Cardiac: RRR, no murmur, +S1/S2 Pulmonary: CTA bilaterally, no wheezes, rales or rhonchi, equal chest expansion Abdomen: soft, nontender, no guarding. No masses or hepatosplenomegaly MSK: ROM intact, no joint swelling noted Extremities: Patient is status post left BKA with bandage on BKA stump that has clear normal-appearing skin without evidence of drainage. There is tenderness to palpation of the surrounding area without induration or crepitus. Skin: Normal temperature, turgor and texture; no rash, ulcers or subcutaneous nodules Neuro: moves all extremities, no focal deficits. Psych: Appropriate mood and behavior. A&Ox3 - Patient Status Functional capacity at discharge: wheelchair bound Overall status at discharge: patient is back to baseline - Diet and Activity Diet: diabetic diet - VTE Documentation of Mechanical Device: Graduated compression elastic hosiery
[2018-08-11] MEDS ORDERED: Insulin LISPRO 300 UNITS/3 ML VIAL SQ SCH (17:00)
[2018-08-11] MEDS ORDERED: Insulin DETEMIR 100 UNIT/ML X5UNITS SQ SCH (18:00)
== END 2018-08-11 17:46 | disposition home health service (06) ==
LOC: 3BNU → SUATTDRO 17:44
PROVIDERS: ADMIT Internal Medicine Nephrology; ATTEND Internal Medicine